=== PATIENT | male | born 1960 | race American Indian/Alaskan Native ===

== ENCOUNTER 2021-09-07 10:21 | Inpatient (IN) | payer BC ==
[2021-09-07] MEDS ORDERED: SODIUM CHLORIDE 0.9% 1000 ML 1,000 ML IV ONE (12:32)
--- NOTE | 2021-09-07 12:32 | Emergency Department Report ---
ED General Adult HPI - General Chief complaint: Hypoglycemia Stated complaint: HYPOGLYCEMIA/HYPOTENSION Time Seen by Provider: 09/07/21 11:34 Source: patient, family, EMS Mode of arrival: Stretcher Limitations: No Limitations, Physical Limitation - History of Present Illness Initial comments: 60-year-old male with history of diabetes presents to the emergency department complaining of hypoglycemia noticed by family this morning. Patient denies any complaints, currently, however is a poor historian. Patient's daughter reports that the patient had a blood sugar of 55 at home, EMS gave the patient D50, and the blood sugar came up to 122. Patient denies any complaints, but does report that he has not been eating, well. Patient's family thinks that the sacral decubitus that is getting worse is the cause of his hypoglycemia. Severity scale (0 -10): 0 - Related Data Home Medications Medication Instructions Recorded Confirmed Last Taken Atorvastatin [Lipitor] 40 mg PO QHS 09/08/21 09/08/21 1 Day Ago ~09/07/21 Folic Acid [Folvite] 1 mg PO QDAY 09/08/21 09/08/21 1 Day Ago ~09/07/21 Insulin NPH Hum/Reg Insulin Hm 15 unit SQ BID 09/08/21 09/08/21 1 Day Ago [Novolin 70-30 Flexpen] ~09/07/21 Previous Rx's Medication Instructions Recorded Last Taken Type Metoprolol [Lopressor TAB] 12.5 mg PO BID #60 tablet 09/19/21 Unknown Rx Midodrine [Proamatine] 10 mg PO 0800,1800 #90 tablet 09/19/21 Unknown Rx Allergies Allergy/AdvReac Type Severity Reaction Status Date / Time No Known Allergies Allergy Verified 09/07/21 14:52 ED Review of Systems ROS: Stated complaint: HYPOGLYCEMIA/HYPOTENSION Other details as noted in HPI Comment: Unobtainable due to pts medical conditions (History obtained from daughter and patient) Constitutional: denies: chills, fever Eyes: denies: eye pain, eye discharge, vision change ENT: denies: ear pain, throat pain Respiratory: denies: cough, shortness of breath, wheezing Cardiovascular: denies: chest pain, palpitations Endocrine: no symptoms reported Gastrointestinal: denies: abdominal pain, nausea, diarrhea Genitourinary: denies: urgency, dysuria Musculoskeletal: denies: back pain, joint swelling, arthralgia Skin: denies: rash, lesions Neurological: denies: headache, weakness, paresthesias Psychiatric: denies: anxiety, depression Hematological/Lymphatic: denies: easy bleeding, easy bruising ED Past Medical Hx - Past Medical History Hx Diabetes: Yes - Medications Home Medications: Home Medications Medication Instructions Recorded Confirmed Last Taken Type Atorvastatin [Lipitor] 40 mg PO QHS 09/08/21 09/08/21 1 Day Ago History ~09/07/21 Folic Acid [Folvite] 1 mg PO QDAY 09/08/21 09/08/21 1 Day Ago History ~09/07/21 Insulin NPH Hum/Reg Insulin Hm 15 unit SQ BID 09/08/21 09/08/21 1 Day Ago History [Novolin 70-30 Flexpen] ~09/07/21 Metoprolol [Lopressor TAB] 12.5 mg PO BID #60 tablet 09/19/21 Unknown Rx Midodrine [Proamatine] 10 mg PO 0800,1800 #90 tablet 09/19/21 Unknown Rx ED Physical Exam - General Limitations: No Limitations General appearance: alert, in no apparent distress - Head Head exam: Present: atraumatic, normocephalic - Eye Eye exam: Present: normal appearance - ENT ENT exam: Present: mucous membranes moist - Neck Neck exam: Present: normal inspection - Respiratory Respiratory exam: Present: normal lung sounds bilaterally. Absent: respiratory distress - Cardiovascular Cardiovascular Exam: Present: regular rate, normal rhythm. Absent: systolic murmur, diastolic murmur, rubs, gallop - GI/Abdominal GI/Abdominal exam: Present: soft, normal bowel sounds - Rectal Rectal exam: Present: deferred - Extremities Exam Extremities exam: Present: normal inspection - Back Exam Back exam: Present: normal inspection - Neurological Exam Neurological exam: Present: alert, altered - Psychiatric Psychiatric exam: Present: normal affect, normal mood - Skin Skin exam: Present: warm, dry, intact, normal color, other (sacral decubitus ulcer). Absent: rash ED Course Vital Signs 09/07/21 09/07/21 09/08/21 10:23 11:36 03:30 Temperature 97.4 F L 98.6 F Pulse Rate 84 87 Respiratory 18 20 Rate Blood Pressure Blood Pressure 85/55 118/70 [Left] O2 Sat by Pulse 96 98 98 Oximetry 09/08/21 04:33 Temperature 97.2 F L Pulse Rate 86 Respiratory 20 Rate Blood Pressure 107/65 Blood Pressure [Left] O2 Sat by Pulse 83 L Oximetry ED Medical Decision Making - Lab Data Result diagrams: 09/17/21 07:11 09/17/21 07:11 - Differential Diagnosis Infection, medication noncompliance or overuse, NV Critical care attestation.: If time is entered above; I have spent that time in minutes in the direct care of this critically ill patient, excluding procedure time. ED Disposition Clinical Impression: Sacral decubitus ulcer, stage IV, Hypoglycemia, Hyponatremia Disposition: ADMITTED INPATIENT Is pt being admited?: Yes Does the pt Need Aspirin: No Condition: Stable
--- NOTE | 2021-09-07 13:49 | XRay Report ---
CHEST 1 VIEW 09/07/2021 12:19 PM INDICATION / CLINICAL INFORMATION: Lightheadedness/Dizziness. COMPARISON: None available. FINDINGS: SUPPORT DEVICES: None. HEART / MEDIASTINUM: No significant abnormality. LUNGS / PLEURA: Increased opacity seen in left lower lung retrocardiac region No pneumothorax. ADDITIONAL FINDINGS: No significant additional findings. IMPRESSION: 1. Left lower lung opacity/infiltrate. Signer Name: Will Cruz MD Signed: 09/07/2021 1:44 PM Workstation Name: [id number]
[2021-09-07 14:35] LABS: Hematocrit 29.3 % (35.5-45.6); Hemoglobin 10.2 gm/dl (11.8-15.2); Mean Corpuscular HGB Conc 35 % (32-34); Mean Corpuscular Volume 86 fl (84-94); Platelet Count 704 K/mm3 (140-440); Red Cell Distribution Width 13.9 % (13.2-15.2)
[2021-09-07 14:42] LABS: Alanine Aminotransferase 12 units/L (7-56); Blood Urea Nitrogen 22 mg/dL (9-20); Calcium 8.9 mg/dL (8.4-10.2); Hemolysis Index 5
[2021-09-07 14:45] LABS: BUN/Creatinine Ratio 31
[2021-09-07 15:23] LABS: Basophils % (Manual) 0 % (0.0-1.8); Eosinophils % (Manual) 0 % (0.0-4.3); Total Cells Counted 100
[2021-09-07 15:26] LABS: Anisocytosis Few; Hypochromasia Few; Large Platelets Rare; Platelet Estimate Consistent w Auto
[2021-09-07] MEDS ORDERED: VANCOMYCIN/NS 1 GM/250 ML 1 GM/250 ML BAG IV ONE (16:11)
[2021-09-07] MEDS ORDERED: METOCLOPRAMIDE 10 MG/2 ML INJ IV PRN (22:04)
[2021-09-07] MEDS ORDERED: MORPHINE 2 MG/1 ML INJ IV PRN (22:04)
[2021-09-07] MEDS ORDERED: ONDANSETRON 4 MG/2 ML INJ IV PRN (22:04)
[2021-09-07] MEDS ORDERED: ACETAMINOPHEN 325 MG TAB PO PRN (22:04)
[2021-09-07] MEDS ORDERED: VANCOMYCIN PHARMACY TO DOSE IV SCH (23:00)
[2021-09-08] MEDS ORDERED: VANCOMYCIN 1,250 MG in SODIUM CHLORIDE 0.9% 250ML 250 ML IV ONE (01:45)
[2021-09-08] MEDS: D5W/0.9% NACL 1,000 ML IV SCH ×2 (04:32→17:15)
[2021-09-08] MEDS: AMPICILLIN/SULBACTA 3GM/100ML 3 GM/100 ML BAG IV SCH ×4 (04:32→17:12)
[2021-09-08 05:19] LABS: Hematocrit 26.4 % (35.5-45.6); Hemoglobin 8.6 gm/dl (11.8-15.2); Mean Corpuscular HGB Conc 33 % (32-34); Mean Corpuscular Volume 87 fl (84-94); Platelet Count 673 K/mm3 (140-440); Red Blood Count 3.05 M/mm3 (3.65-5.03); Red Cell Distribution Width 13.9 % (13.2-15.2)
[2021-09-08 05:43] LABS: Alanine Aminotransferase 10 units/L (7-56); Albumin 2.2 g/dL (3.9-5); Blood Urea Nitrogen 16 mg/dL (9-20); Calcium 8.7 mg/dL (8.4-10.2); Hemolysis Index 2
[2021-09-08 05:57] LABS: BUN/Creatinine Ratio 27
[2021-09-08] MEDS ORDERED: DEXTROSE 50% IN WATER (25GM) 50 ML SYRINGE IV ONE (06:42)
[2021-09-08 06:43] LABS: Band Neutrophils # (Manual) 0.2 K/mm3; Basophils % (Manual) 0 % (0.0-1.8); Eosinophils % (Manual) 0 % (0.0-4.3); Platelet Estimate Consistent w Auto; RBC Morphology Normal; Total Cells Counted 100
--- NOTE | 2021-09-08 07:17 | History and Physical Report ---
History of Present Illness Date of examination: 09/07/21 Date of admission: 09/07/21 22:04 Chief complaint: Persistent low blood glucose levels History of present illness: 60-year-old male with history of diabetes presents to the emergency department complaining of hypoglycemia noticed by family this morning. Patient denies any complaints, currently, however is a poor historian. Patient's daughter reports that the patient had a blood sugar of 55 at home, EMS gave the patient D50, and the blood sugar came up to 122. Patient denies any complaints, but does report that he has not been eating, well. Patient's family thinks that the sacral decubitus that is getting worse is the cause of his hypoglycemia. Review of Systems ROS: Stated complaint: HYPOGLYCEMIA/HYPOTENSION Other details as noted in HPI Comment: Unobtainable due to pts medical conditions (History obtained from daughter and patient) Constitutional: denies: chills, fever Eyes: denies: eye pain, eye discharge, vision change ENT: denies: ear pain, throat pain Respiratory: denies: cough, shortness of breath, wheezing Cardiovascular: denies: chest pain, palpitations Endocrine: no symptoms reported Gastrointestinal: denies: abdominal pain, nausea, diarrhea Genitourinary: denies: urgency, dysuria Musculoskeletal: denies: back pain, joint swelling, arthralgia Skin: denies: rash, lesions Neurological: denies: headache, weakness, paresthesias Psychiatric: denies: anxiety, depression Hematological/Lymphatic: denies: easy bleeding, easy bruising Past History Past Medical History: diabetes, other (Sacral decubitus ulcer) Past Surgical History: Other (Stage IV decubitus ulcer) Social history: lives with family, full code Medications and Allergies Allergies Allergy/AdvReac Type Severity Reaction Status Date / Time No Known Allergies Allergy Verified 09/07/21 14:52 Active Meds: Active Medications Acetaminophen (Acetaminophen 325 Mg Tab) 650 mg PO Q4H PRN PRN Reason: Pain MILD(1-3)/Fever >100.5/HORNER Heparin Sodium (Porcine) (Heparin 5,000 Unit/1 Ml Vial) 5,000 unit SUB-Q Q12HR [facility] Dextrose/Sodium Chloride (D5ns) 1,000 mls @ 100 mls/hr IV DIRECT URSULA Last Admin: 09/08/21 04:32 Dose: 100 mls/hr Ampicillin Sodium/Sulbactam Sodium (Unasyn/Ns 3 Gm/100 Ml) 3 gm in 100 mls @ 100 mls/hr IV Q6HR [facility]; Protocol Last Admin: 09/08/21 06:10 Dose: Not Given Vancomycin HCl (Vancomycin/Ns 1 Gm/250 Ml) 1 gm in 250 mls @ 250 mls/hr IV Q12H [facility] Insulin Human Lispro (Insulin Lispro 100 Unit/Ml) 0 unit SUB-Q ACHS [facility]; Protocol Metoclopramide HCl (Metoclopramide 10 Mg/2 Ml Inj) 10 mg IV Q6H PRN PRN Reason: Nausea And Vomiting Morphine Sulfate (Morphine 2 Mg/1 Ml Inj) 2 mg IV Q4H PRN PRN Reason: Pain, Moderate (4-6) Ondansetron HCl (Ondansetron 4 Mg/2 Ml Inj) 4 mg IV Q8H PRN PRN Reason: Nausea And Vomiting Sodium Chloride (Sodium Chloride 0.9% 10 Ml Flush Syringe) 10 ml IV BID [facility] Last Admin: 09/08/21 04:33 Dose: 10 ml Sodium Chloride (Sodium Chloride 0.9% 10 Ml Flush Syringe) 10 ml IV PRN PRN PRN Reason: LINE FLUSH Exam - Constitutional Vitals: Temp Pulse Resp BP Pulse Ox 97.2 F L 86 20 107/65 98 09/08/21 04:33 09/08/21 04:33 09/08/21 04:33 09/08/21 04:33 09/08/21 04:58 General appearance: Present: no acute distress, well-nourished - EENT Eyes: Present: PERRL ENT: hearing intact, clear oral mucosa - Neck Neck: Present: supple, normal ROM - Respiratory Respiratory effort: normal Respiratory: bilateral: CTA - Cardiovascular Heart rate: 78 Rhythm: regular Heart Sounds: Present: S1 & S2. Absent: rub, click - Extremities Extremities: pulses symmetrical, No edema, abnormal (Stage IV decubitus ulcer) Extremity abnormal: other (Stage IV decubitus ulcer) Peripheral Pulses: within normal limits - Abdominal General gastrointestinal: Present: soft, non-tender, non-distended, normal bowel sounds Male genitourinary: Present: normal - Integumentary Integumentary: Present: clear, warm, dry - Musculoskeletal Musculoskeletal: gait normal, strength equal bilaterally - Psychiatric Psychiatric: appropriate mood/affect, intact judgment & insight - Neurologic Neurologic: CNII-XII intact, moves all extremities - Allied Health Allied health notes reviewed: nursing, case management HEART Score - HEART Score Troponin: Troponin T 0.013 ng/mL (0.00-0.029) 09/07/21 13:13 Results - Labs CBC & Chem 7: 09/08/21 04:58 09/08/21 04:58 Labs: Laboratory Last Values WBC 16.2 K/mm3 (4.5-11.0) H 09/08/21 04:58 RBC 3.05 M/mm3 (3.65-5.03) L 09/08/21 04:58 Hgb 8.6 gm/dl (11.8-15.2) L 09/08/21 04:58 Hct 26.4 % (35.5-45.6) L 09/08/21 04:58 MCV 87 fl (84-94) 09/08/21 04:58 MCH 28 pg (28-32) 09/08/21 04:58 MCHC 33 % (32-34) 09/08/21 04:58 RDW 13.9 % (13.2-15.2) 09/08/21 04:58 Plt Count 673 K/mm3 (140-440) H 09/08/21 04:58 Add Manual Diff Complete 09/08/21 04:58 Total Counted 100 09/08/21 04:58 Seg Neutrophils % Manufacturing Test Engineer 09/08/21 04:58 Seg Neuts % (Manual) 95.0 % (40.0-70.0) H 09/08/21 04:58 Band Neutrophils % 1.0 % 09/08/21 04:58 Lymphocytes % (Manual) 3.0 % (13.4-35.0) L 09/08/21 04:58 Reactive Lymphs % (Man) 0 % 09/08/21 04:58 Monocytes % (Manual) 1.0 % (0.0-7.3) 09/08/21 04:58 Eosinophils % (Manual) 0 % (0.0-4.3) 09/08/21 04:58 Basophils % (Manual) 0 % (0.0-1.8) 09/08/21 04:58 Metamyelocytes % 0 % 09/08/21 04:58 Myelocytes % 0 % 09/08/21 04:58 Promyelocytes % 0 % 09/08/21 04:58 Blast Cells % 0 % 09/08/21 04:58 Nucleated RBC % Not Reportable 09/08/21 04:58 Seg Neutrophils # Man 15.4 K/mm3 (1.8-7.7) H 09/08/21 04:58 Band Neutrophils # 0.2 K/mm3 09/08/21 04:58 Lymphocytes # (Manual) 0.5 K/mm3 (1.2-5.4) L 09/08/21 04:58 Abs React Lymphs (Man) 0.0 K/mm3 09/08/21 04:58 Monocytes # (Manual) 0.2 K/mm3 (0.0-0.8) 09/08/21 04:58 Eosinophils # (Manual) 0.0 K/mm3 (0.0-0.4) 09/08/21 04:58 Basophils # (Manual) 0.0 K/mm3 (0.0-0.1) 09/08/21 04:58 Metamyelocytes # 0.0 K/mm3 09/08/21 04:58 Myelocytes # 0.0 K/mm3 09/08/21 04:58 Promyelocytes # 0.0 K/mm3 09/08/21 04:58 Blast Cells # 0.0 K/mm3 09/08/21 04:58 WBC Morphology Not Reportable 09/08/21 04:58 Hypersegmented Neuts Not Reportable 09/08/21 04:58 Hyposegmented Neuts Not Reportable 09/08/21 04:58 Hypogranular Neuts Not Reportable 09/08/21 04:58 Smudge Cells Not Reportable 09/08/21 04:58 Toxic Granulation Not Reportable 09/08/21 04:58 Toxic Vacuolation Not Reportable 09/08/21 04:58 Dohle Bodies Not Reportable 09/08/21 04:58 Pelger-Huet Anomaly Not Reportable 09/08/21 04:58 Robert Rods Not Reportable 09/08/21 04:58 Platelet Estimate Consistent w auto 09/08/21 04:58 Clumped Platelets Not Reportable 09/08/21 04:58 Plt Clumps, EDTA Not Reportable 09/08/21 04:58 Large Platelets Not Reportable 09/08/21 04:58 Giant Platelets Not Reportable 09/08/21 04:58 Platelet Satelliting Not Reportable 09/08/21 04:58 Plt Morphology Comment Not Reportable 09/08/21 04:58 RBC Morphology Normal 09/08/21 04:58 Dimorphic RBCs Not Reportable 09/08/21 04:58 Polychromasia Not Reportable 09/08/21 04:58 Hypochromasia Not Reportable 09/08/21 04:58 Poikilocytosis Not Reportable 09/08/21 04:58 Anisocytosis Not Reportable 09/08/21 04:58 Microcytosis Not Reportable 09/08/21 04:58 Macrocytosis Not Reportable 09/08/21 04:58 Spherocytes Not Reportable 09/08/21 04:58 Pappenheimer Bodies Not Reportable 09/08/21 04:58 Sickle Cells Not Reportable 09/08/21 04:58 Target Cells Not Reportable 09/08/21 04:58 Tear Drop Cells Not Reportable 09/08/21 04:58 Ovalocytes Not Reportable 09/08/21 04:58 Helmet Cells Not Reportable 09/08/21 04:58 [place] Bodies Not Reportable 09/08/21 04:58 [place] Rings Not Reportable 09/08/21 04:58 Humphrey Cells Not Reportable 09/08/21 04:58 Bite Cells Not Reportable 09/08/21 04:58 Crenated Cell Not Reportable 09/08/21 04:58 Elliptocytes Not Reportable 09/08/21 04:58 Acanthocytes (Spur) Not Reportable 09/08/21 04:58 Rouleaux Not Reportable 09/08/21 04:58 Hemoglobin C Crystals Not Reportable 09/08/21 04:58 Schistocytes Not Reportable 09/08/21 04:58 Malaria parasites Not Reportable 09/08/21 04:58 Ludwig Bodies Not Reportable 09/08/21 04:58 Hem Pathologist Commnt No 09/08/21 04:58 Sodium 132 mmol/L (137-145) L 09/08/21 04:58 Potassium 3.8 mmol/L (3.6-5.0) 09/08/21 04:58 Chloride 90.7 mmol/L (98-107) L 09/08/21 04:58 Carbon Dioxide 30 mmol/L (22-30) 09/08/21 04:58 Anion Gap 15 mmol/L 09/08/21 04:58 BUN 16 mg/dL (9-20) 09/08/21 04:58 Creatinine 0.6 mg/dL (0.8-1.3) L 09/08/21 04:58 Estimated GFR > 60 ml/min 09/08/21 04:58 BUN/Creatinine Ratio 27 % 09/08/21 04:58 Glucose 21 mg/dL (75-100) L* 09/08/21 04:58 POC Glucose 24 mg/dL (70-105) L 09/08/21 06:04 Lactic Acid 1.40 mmol/L (0.7-2.0) 09/07/21 15:23 Calcium 8.7 mg/dL (8.4-10.2) 09/08/21 04:58 Total Bilirubin 0.20 mg/dL (0.1-1.2) 09/08/21 04:58 AST 27 units/L (5-40) 09/08/21 04:58 ALT 10 units/L (7-56) 09/08/21 04:58 Alkaline Phosphatase 131 units/L (35-129) H 09/08/21 04:58 Troponin T 0.013 ng/mL (0.00-0.029) 09/07/21 13:13 Total Protein 7.5 g/dL (6.3-8.2) 09/08/21 04:58 Albumin 2.2 g/dL (3.9-5) L 09/08/21 04:58 Albumin/Globulin Ratio 0.4 % 09/08/21 04:58 Blood Type A POSITIVE 09/07/21 13:55 Antibody Screen Negative 09/07/21 13:55 Microbiology: Microbiology 09/07/21 13:13 Peripheral/Venous Blood Culture - Preliminary Culture in Progress 09/07/21 13:13 Peripheral/Venous Blood Culture - Preliminary Culture in Progress [place]/IV: Voiding Method Condom Catheter Assessment and Plan Advance Directives: Yes (Full code) VTE prophylaxis?: Chemical Plan of care discussed with patient/family: Yes - Patient Problems (1) Hypoglycemia Current Visit: Yes Status: Acute Plan to address problem: Persistent hypoglycemia IV D5W with normal saline D50 W and glucagon as necessary Etiology of hypoglycemia unclear Poor p.o. intake (2) Hyponatremia Current Visit: Yes Status: Acute Plan to address problem: Normal saline for now (3) Sacral decubitus ulcer, stage IV Current Visit: Yes Status: Chronic Plan to address problem: Severe sacral decubitus ulcer about 12 cm [place] VIII centimeters X depth of about 2 cm with eschar formation over half of the decubitus ulcer Needs debridement and wound care. Surgical consult requested. Patient needs placement for continues wound therapy. (4) Anemia Current Visit: Yes Status: Chronic Qualifiers: Anemia type: unspecified type Qualified Code(s): D64.9 - Anemia, unspecified Plan to address problem: Anemia work-up (5) Malnutrition Current Visit: Yes Status: Chronic Qualifiers: Malnutrition type: protein-calorie malnutrition Plan to address problem: Malnutrition severe Albumin is two-point Dietitian consult requested Dietary supplements requested 3 times a day (6) DVT prophylaxis Current Visit: Yes Status: Acute Plan to address problem: On heparin and GI prophylaxis (7) Advance care planning Current Visit: Yes Status: Acute Plan to address problem: Could not be done because of logistics
--- NOTE | 2021-09-08 07:47 | Progress Note ---
Assessment and Plan Assessment and plan: -- Hypoglycemia Persistent hypoglycemia IV D5W with normal saline Probably due to poor oral intake D50 W and glucagon as necessary Etiology of hypoglycemia unclear Poor p.o. intake --Hyponatremia Mild improvement Na improved from 128-132 this morning Continue normal saline closely monitor electrolytes -- Sacral decubitus ulcer, stage IV Severe sacral decubitus ulcer about 12 cm Elrama VIII centimeters X depth of about 2 cm with eschar formation over half of the decubitus ulcer Needs surgical debridement and wound care. Surgical consult already requested. Patient needs placement for continues wound therapy. --Anemia[dropped from 10.2-8.6 since admission] Closely monitor H&H, transfuse as needed No external evidence of bleeding, stool for occult blood Closely monitor -- Severe protein calorie malnutrition With hypoalbuminemia, nutrition supplements Nutrition consult and supportive care --Severe hyper anemia; albumin2.2 nutrition supplements, nutrition consult Supportive care -- DVT prophylaxis Subcu heparin and GI prophylaxis -- Advance care planning Could not be done because of logistics Plan of care reviewed with the patient and his nurse I also discussed extensively with surgeon Dr. Titus Is planning surgical debridement tomorrow if patient is stable N.p.o. from midnight History Interval history: I have seen and examined the patient in the morning Patient's chart and medications reviewed Admitted with hypoglycemia, blood sugars are reasonable level Patient complains of generalized weakness Vital signs noted Hospitalist Physical - Constitutional Vitals: Temp Pulse Resp BP Pulse Ox 97.2 F L 86 20 107/65 98 09/08/21 04:33 09/08/21 04:33 09/08/21 04:33 09/08/21 04:33 09/08/21 04:58 General appearance: Present: no acute distress, well-nourished - EENT Eyes: Present: PERRL, EOM intact - Neck Neck: Present: supple, normal ROM - Respiratory Respiratory effort: normal Respiratory: bilateral: diminished, negative: rales, rhonchi, wheezing - Cardiovascular Rhythm: regular Heart Sounds: Present: S1 & S2 - Extremities Extremities: no ischemia, No edema, abnormal (Stage IV sacral decubitus ulcer) - Abdominal General gastrointestinal: soft, non-tender, non-distended, normal bowel sounds - Integumentary Integumentary: Present: clear, warm, erythema (Stage IV sacral decubitus ulcer) - Psychiatric Psychiatric: cooperative - Neurologic Neurologic: moves all extremities HEART Score - HEART Score Troponin: Troponin T 0.013 ng/mL (0.00-0.029) 09/07/21 13:13 Results - Labs CBC & Chem 7: 09/08/21 04:58 09/08/21 04:58 Labs: Laboratory Last Values WBC 16.2 K/mm3 (4.5-11.0) H 09/08/21 04:58 RBC 3.05 M/mm3 (3.65-5.03) L 09/08/21 04:58 Hgb 8.6 gm/dl (11.8-15.2) L 09/08/21 04:58 Hct 26.4 % (35.5-45.6) L 09/08/21 04:58 MCV 87 fl (84-94) 09/08/21 04:58 MCH 28 pg (28-32) 09/08/21 04:58 MCHC 33 % (32-34) 09/08/21 04:58 RDW 13.9 % (13.2-15.2) 09/08/21 04:58 Plt Count 673 K/mm3 (140-440) H 09/08/21 04:58 Add Manual Diff Complete 09/08/21 04:58 Total Counted 100 09/08/21 04:58 Seg Neutrophils % [employer] Super[employer] 09/08/21 04:58 Seg Neuts % (Manual) 95.0 % (40.0-70.0) H 09/08/21 04:58 Band Neutrophils % 1.0 % 09/08/21 04:58 Lymphocytes % (Manual) 3.0 % (13.4-35.0) L 09/08/21 04:58 Reactive Lymphs % (Man) 0 % 09/08/21 04:58 Monocytes % (Manual) 1.0 % (0.0-7.3) 09/08/21 04:58 Eosinophils % (Manual) 0 % (0.0-4.3) 09/08/21 04:58 Basophils % (Manual) 0 % (0.0-1.8) 09/08/21 04:58 Metamyelocytes % 0 % 09/08/21 04:58 Myelocytes % 0 % 09/08/21 04:58 Promyelocytes % 0 % 09/08/21 04:58 Blast Cells % 0 % 09/08/21 04:58 Nucleated RBC % Not Reportable 09/08/21 04:58 Seg Neutrophils # Man 15.4 K/mm3 (1.8-7.7) H 09/08/21 04:58 Band Neutrophils # 0.2 K/mm3 09/08/21 04:58 Lymphocytes # (Manual) 0.5 K/mm3 (1.2-5.4) L 09/08/21 04:58 Abs React Lymphs (Man) 0.0 K/mm3 09/08/21 04:58 Monocytes # (Manual) 0.2 K/mm3 (0.0-0.8) 09/08/21 04:58 Eosinophils # (Manual) 0.0 K/mm3 (0.0-0.4) 09/08/21 04:58 Basophils # (Manual) 0.0 K/mm3 (0.0-0.1) 09/08/21 04:58 Metamyelocytes # 0.0 K/mm3 09/08/21 04:58 Myelocytes # 0.0 K/mm3 09/08/21 04:58 Promyelocytes # 0.0 K/mm3 09/08/21 04:58 Blast Cells # 0.0 K/mm3 09/08/21 04:58 WBC Morphology Not Reportable 09/08/21 04:58 Hypersegmented Neuts Not Reportable 09/08/21 04:58 Hyposegmented Neuts Not Reportable 09/08/21 04:58 Hypogranular Neuts Not Reportable 09/08/21 04:58 Smudge Cells Not Reportable 09/08/21 04:58 Toxic Granulation Not Reportable 09/08/21 04:58 Toxic Vacuolation Not Reportable 09/08/21 04:58 Dohle Bodies Not Reportable 09/08/21 04:58 Pelger-Huet Anomaly Not Reportable 09/08/21 04:58 Robert Rods Not Reportable 09/08/21 04:58 Platelet Estimate Consistent w auto 09/08/21 04:58 Clumped Platelets Not Reportable 09/08/21 04:58 Plt Clumps, EDTA Not Reportable 09/08/21 04:58 Large Platelets Not Reportable 09/08/21 04:58 Giant Platelets Not Reportable 09/08/21 04:58 Platelet Satelliting Not Reportable 09/08/21 04:58 Plt Morphology Comment Not Reportable 09/08/21 04:58 RBC Morphology Normal 09/08/21 04:58 Dimorphic RBCs Not Reportable 09/08/21 04:58 Polychromasia Not Reportable 09/08/21 04:58 Hypochromasia Not Reportable 09/08/21 04:58 Poikilocytosis Not Reportable 09/08/21 04:58 Anisocytosis Not Reportable 09/08/21 04:58 Microcytosis Not Reportable 09/08/21 04:58 Macrocytosis Not Reportable 09/08/21 04:58 Spherocytes Not Reportable 09/08/21 04:58 Pappenheimer Bodies Not Reportable 09/08/21 04:58 Sickle Cells Not Reportable 09/08/21 04:58 Target Cells Not Reportable 09/08/21 04:58 Tear Drop Cells Not Reportable 09/08/21 04:58 Ovalocytes Not Reportable 09/08/21 04:58 Helmet Cells Not Reportable 09/08/21 04:58 [place] Bodies Not Reportable 09/08/21 04:58 [employer] Rings Not Reportable 09/08/21 04:58 Korbel Cells Not Reportable 09/08/21 04:58 Bite Cells Not Reportable 09/08/21 04:58 Crenated Cell Not Reportable 09/08/21 04:58 Elliptocytes Not Reportable 09/08/21 04:58 Acanthocytes (Spur) Not Reportable 09/08/21 04:58 Rouleaux Not Reportable 09/08/21 04:58 Hemoglobin C Crystals Not Reportable 09/08/21 04:58 Schistocytes Not Reportable 09/08/21 04:58 Malaria parasites Not Reportable 09/08/21 04:58 Ludwig Bodies Not Reportable 09/08/21 04:58 Hem Pathologist Commnt No 09/08/21 04:58 Sodium 132 mmol/L (137-145) L 09/08/21 04:58 Potassium 3.8 mmol/L (3.6-5.0) 09/08/21 04:58 Chloride 90.7 mmol/L (98-107) L 09/08/21 04:58 Carbon Dioxide 30 mmol/L (22-30) 09/08/21 04:58 Anion Gap 15 mmol/L 09/08/21 04:58 BUN 16 mg/dL (9-20) 09/08/21 04:58 Creatinine 0.6 mg/dL (0.8-1.3) L 09/08/21 04:58 Estimated GFR > 60 ml/min 09/08/21 04:58 BUN/Creatinine Ratio 27 % 09/08/21 04:58 Glucose 21 mg/dL (75-100) L* 09/08/21 04:58 POC Glucose 94 mg/dL (70-105) 09/08/21 07:31 Lactic Acid 1.40 mmol/L (0.7-2.0) 09/07/21 15:23 Calcium 8.7 mg/dL (8.4-10.2) 09/08/21 04:58 Total Bilirubin 0.20 mg/dL (0.1-1.2) 09/08/21 04:58 AST 27 units/L (5-40) 09/08/21 04:58 ALT 10 units/L (7-56) 09/08/21 04:58 Alkaline Phosphatase 131 units/L (35-129) H 09/08/21 04:58 Troponin T 0.013 ng/mL (0.00-0.029) 09/07/21 13:13 Total Protein 7.5 g/dL (6.3-8.2) 09/08/21 04:58 Albumin 2.2 g/dL (3.9-5) L 09/08/21 04:58 Albumin/Globulin Ratio 0.4 % 09/08/21 04:58 Blood Type A POSITIVE 09/07/21 13:55 Antibody Screen Negative 09/07/21 13:55 Microbiology: Microbiology 09/07/21 13:13 Peripheral/Venous Blood Culture - Preliminary Culture in Progress 09/07/21 13:13 Peripheral/Venous Blood Culture - Preliminary Culture in Progress Neville/IV: Voiding Method Condom Catheter Active Medications - Current Medications Current Medications: Generic Name Dose Route Start Last Admin Trade Name Freq PRN Reason Stop Dose Admin Acetaminophen 650 mg 09/07/21 22:04 Acetaminophen 325 Mg Tab PO Q4H PRN Pain MILD(1-3)/Fever >100.5/HORNER Heparin Sodium (Porcine) 5,000 unit 09/08/21 10:00 Heparin 5,000 Unit/1 Ml Vial SUB-Q Q12HR [facility] Dextrose/Sodium Chloride 1,000 mls @ 100 mls/hr 09/07/21 23:00 09/08/21 04:32 D5ns IV 100 mls/hr DIRECT URSULA Administration Ampicillin Sodium/Sulbactam Sodium 3 gm in 100 mls @ 100 mls/hr 09/08/21 00:00 09/08/21 06:10 Unasyn/Ns 3 Gm/100 Ml IV Not Given Q6HR [facility] Protocol Vancomycin HCl 1 gm in 250 mls @ 250 mls/hr 09/08/21 14:00 Vancomycin/Ns 1 Gm/250 Ml IV Q12H [facility] Insulin Human Lispro 0 unit 09/08/21 07:30 Insulin Lispro 100 Unit/Ml SUB-Q ACHS [facility] Protocol Metoclopramide HCl 10 mg 09/07/21 22:04 Metoclopramide 10 Mg/2 Ml Inj IV Q6H PRN Nausea And Vomiting Morphine Sulfate 2 mg 09/07/21 22:04 Morphine 2 Mg/1 Ml Inj IV Q4H PRN Pain, Moderate (4-6) Ondansetron HCl 4 mg 09/07/21 22:04 Ondansetron 4 Mg/2 Ml Inj IV Q8H PRN Nausea And Vomiting Sodium Chloride 10 ml 09/07/21 23:00 09/08/21 04:33 Sodium Chloride 0.9% 10 Ml Flush Syringe IV 10 ml BID URSULA Administration Sodium Chloride 10 ml 09/07/21 22:04 Sodium Chloride 0.9% 10 Ml Flush Syringe IV PRN PRN LINE FLUSH
[2021-09-08] MEDS: INSULIN LISPRO 100 UNIT/ML SUB-Q SCH ×4 (08:01→22:49)
[2021-09-08] MEDS: HEPARIN 5,000 UNIT/1 ML VIAL SUB-Q SCH ×3 (08:27→22:49)
--- NOTE | 2021-09-08 09:51 | Consultation ---
History of Present Illness Consult date: 09/08/21 - History of present illness History of present illness: 60-year-old male with history of diabetes presents to the emergency department complaining of hypoglycemia noticed by family this morning. Patient denies any complaints, currently, however is a poor historian. Patient's daughter reports that the patient had a blood sugar of 55 at home, EMS gave the patient D50, and the blood sugar came up to 122. Patient denies any complaints, but does report that he has not been eating, well. Patient's family thinks that the sacral decubitus that is getting worse is the cause of his hypoglycemia. Surgical consultation is for management of decubitus ulcer requiring debridement at this time. WBC count is 16,200 patient noted to have a glucose of 21 this morning. Surgical debridement should be deferred until aggressive medical management of fairly dangerous hypoglycemia. Patient notably also hypotensive this morning aggressive IV fluid treatment with antibiotics. Considering elevated white count the IV vancomycin may not be broad enough to cover all potential causes of sepsis. Consider CT of the abdomen for occult intra-abdominal abscess source as well. Past History Past Medical History: diabetes, other (Sacral decubitus ulcer) Past Surgical History: Other (Stage IV decubitus ulcer) Social history: lives with family, full code Medications and Allergies Allergies Allergy/AdvReac Type Severity Reaction Status Date / Time No Known Allergies Allergy Verified 09/07/21 14:52 Home Medications Medication Instructions Recorded Confirmed Last Taken Type Atorvastatin [Lipitor Tab] 40 mg PO QHS 09/08/21 09/08/21 1 Day Ago History ~09/07/21 Folic Acid [Folvite] 1 mg PO QDAY 09/08/21 09/08/21 1 Day Ago History ~09/07/21 Insulin NPH Hum/Reg Insulin Hm 15 unit SQ BID 09/08/21 09/08/21 1 Day Ago History [Novolin 70-30 Flexpen] ~09/07/21 Metoprolol [Lopressor] 25 mg PO BID 09/08/21 09/08/21 1 Day Ago History ~09/07/21 Active Meds: Active Medications Acetaminophen (Acetaminophen 325 Mg Tab) 650 mg PO Q4H PRN PRN Reason: Pain MILD(1-3)/Fever >100.5/HORNER Heparin Sodium (Porcine) (Heparin 5,000 Unit/1 Ml Vial) 5,000 unit SUB-Q Q12HR [facility] Last Admin: 09/08/21 08:27 Dose: 5,000 unit Dextrose/Sodium Chloride (D5ns) 1,000 mls @ 100 mls/hr IV DIRECT URSULA Last Admin: 09/08/21 04:32 Dose: 100 mls/hr Ampicillin Sodium/Sulbactam Sodium (Unasyn/Ns 3 Gm/100 Ml) 3 gm in 100 mls @ 100 mls/hr IV Q6HR [facility]; Protocol Last Admin: 09/08/21 06:10 Dose: Not Given Vancomycin HCl (Vancomycin/Ns 1 Gm/250 Ml) 1 gm in 250 mls @ 250 mls/hr IV Q12H URSULA Insulin Human Lispro (Insulin Lispro 100 Unit/Ml) 0 unit SUB-Q ACHS [facility]; Protocol Last Admin: 09/08/21 08:01 Dose: Not Given Metoclopramide HCl (Metoclopramide 10 Mg/2 Ml Inj) 10 mg IV Q6H PRN PRN Reason: Nausea And Vomiting Morphine Sulfate (Morphine 2 Mg/1 Ml Inj) 2 mg IV Q4H PRN PRN Reason: Pain, Moderate (4-6) Ondansetron HCl (Ondansetron 4 Mg/2 Ml Inj) 4 mg IV Q8H PRN PRN Reason: Nausea And Vomiting Sodium Chloride (Sodium Chloride 0.9% 10 Ml Flush Syringe) 10 ml IV BID [facility] Last Admin: 09/08/21 08:29 Dose: 10 ml Sodium Chloride (Sodium Chloride 0.9% 10 Ml Flush Syringe) 10 ml IV PRN PRN PRN Reason: LINE FLUSH Exam Vital Signs Temp Pulse Resp BP Pulse Ox 97.4 F L 84 18 85/55 96 09/07/21 10:23 09/07/21 10:23 09/07/21 10:23 09/07/21 10:23 09/07/21 10:23 Results - Labs 09/08/21 04:58 09/08/21 04:58 Abnormal lab results 09/07/21 09/07/21 09/07/21 Range/Units 13:13 13:13 13:13 WBC 15.7 H (4.5-11.0) K/mm3 RBC 3.40 L (3.65-5.03) M/mm3 Hgb 10.2 L (11.8-15.2) gm/dl Hct 29.3 L (35.5-45.6) % MCHC 35 H (32-34) % Plt Count 704 H (140-440) K/mm3 Seg Neuts % (Manual) 91.0 H (40.0-70.0) % Lymphocytes % (Manual) 5.0 L (13.4-35.0) % Seg Neutrophils # Man 14.3 H (1.8-7.7) K/mm3 Lymphocytes # (Manual) 0.8 L (1.2-5.4) K/mm3 Sodium 128 L (137-145) mmol/L Chloride 87.3 L (98-107) mmol/L BUN 22 H (9-20) mg/dL Creatinine 0.7 L (0.8-1.3) mg/dL Glucose 41 L (75-100) mg/dL POC Glucose (70-105) mg/dL Lactic Acid 2.10 H* (0.7-2.0) mmol/L Alkaline Phosphatase (35-129) units/L Albumin 2.0 L (3.9-5) g/dL 09/08/21 09/08/21 09/08/21 Range/Units 04:58 04:58 06:04 WBC 16.2 H (4.5-11.0) K/mm3 RBC 3.05 L (3.65-5.03) M/mm3 Hgb 8.6 L (11.8-15.2) gm/dl Hct 26.4 L (35.5-45.6) % MCHC (32-34) % Plt Count 673 H (140-440) K/mm3 Seg Neuts % (Manual) 95.0 H (40.0-70.0) % Lymphocytes % (Manual) 3.0 L (13.4-35.0) % Seg Neutrophils # Man 15.4 H (1.8-7.7) K/mm3 Lymphocytes # (Manual) 0.5 L (1.2-5.4) K/mm3 Sodium 132 L (137-145) mmol/L Chloride 90.7 L (98-107) mmol/L BUN (9-20) mg/dL Creatinine 0.6 L (0.8-1.3) mg/dL Glucose 21 L* (75-100) mg/dL POC Glucose 24 L (70-105) mg/dL Lactic Acid (0.7-2.0) mmol/L Alkaline Phosphatase 131 H (35-129) units/L Albumin 2.2 L (3.9-5) g/dL Diabetes panel 09/07/21 09/08/21 Range/Units 13:13 04:58 Sodium 128 L 132 L (137-145) mmol/L Potassium 3.6 3.8 (3.6-5.0) mmol/L Chloride 87.3 L 90.7 L (98-107) mmol/L Carbon Dioxide 29 30 (22-30) mmol/L BUN 22 H 16 (9-20) mg/dL Creatinine 0.7 L 0.6 L (0.8-1.3) mg/dL Glucose 41 L 21 L* (75-100) mg/dL Calcium 8.9 8.7 (8.4-10.2) mg/dL AST 30 27 (5-40) units/L ALT 12 10 (7-56) units/L Alkaline Phosphatase 121 131 H (35-129) units/L Total Protein 7.8 7.5 (6.3-8.2) g/dL Albumin 2.0 L 2.2 L (3.9-5) g/dL Calcium panel 09/07/21 09/08/21 Range/Units 13:13 04:58 Calcium 8.9 8.7 (8.4-10.2) mg/dL Albumin 2.0 L 2.2 L (3.9-5) g/dL Pituitary panel 09/07/21 09/08/21 Range/Units 13:13 04:58 Sodium 128 L 132 L (137-145) mmol/L Potassium 3.6 3.8 (3.6-5.0) mmol/L Chloride 87.3 L 90.7 L (98-107) mmol/L Carbon Dioxide 29 30 (22-30) mmol/L BUN 22 H 16 (9-20) mg/dL Creatinine 0.7 L 0.6 L (0.8-1.3) mg/dL Glucose 41 L 21 L* (75-100) mg/dL Calcium 8.9 8.7 (8.4-10.2) mg/dL Adrenal panel 09/07/21 09/08/21 Range/Units 13:13 04:58 Sodium 128 L 132 L (137-145) mmol/L Potassium 3.6 3.8 (3.6-5.0) mmol/L Chloride 87.3 L 90.7 L (98-107) mmol/L Carbon Dioxide 29 30 (22-30) mmol/L BUN 22 H 16 (9-20) mg/dL Creatinine 0.7 L 0.6 L (0.8-1.3) mg/dL Glucose 41 L 21 L* (75-100) mg/dL Calcium 8.9 8.7 (8.4-10.2) mg/dL Total Bilirubin 0.20 0.20 (0.1-1.2) mg/dL AST 30 27 (5-40) units/L ALT 12 10 (7-56) units/L Alkaline Phosphatase 121 131 H (35-129) units/L Total Protein 7.8 7.5 (6.3-8.2) g/dL Albumin 2.0 L 2.2 L (3.9-5) g/dL Assessment and Plan 60-year-old male with history of diabetes presents to the emergency department complaining of hypoglycemia noticed by family this morning. Patient denies any complaints, currently, however is a poor historian. Patient's daughter reports that the patient had a blood sugar of 55 at home, EMS gave the patient D50, and the blood sugar came up to 122. Patient denies any complaints, but does report that he has not been eating, well. Patient's family thinks that the sacral decubitus that is getting worse is the cause of his hypoglycemia. Surgical consultation is for management of decubitus ulcer requiring debridement at this time. WBC count is 16,200 patient noted to have a glucose of 21 this morning. Surgical debridement should be deferred until aggressive medical management of fairly dangerous hypoglycemia. Patient notably also hypotensive this morning aggressive IV fluid treatment with antibiotics. Considering elevated white count the IV vancomycin may not be broad enough to cover all potential causes of sepsis. Consider CT of the abdomen for occult intra-abdominal abscess source as well.
[2021-09-08 12:37] LABS: Bacteria,Urine 4+ /HPF (Negative); Hyaline Casts,Urine 3 /LPF
[2021-09-08 13:08] LABS: Color,Urine Yellow (Yellow)
[2021-09-08 13:10] LABS: Bilirubin,Urine Negative (Negative); Blood,Urine Negative (Negative); Protein,Urine <30 mg dL mg/dL (Negative); Urobilinogen,Urine < 2.0 mg/dL (<2.0)
--- NOTE | 2021-09-08 13:22 | XRay Report ---
RIGHT SHOULDER ONE VIEW INDICATION / CLINICAL INFORMATION: pain. COMPARISON: None available. FINDINGS: BONES / JOINT(S): No acute fracture or subluxation. Mild DJD at the glenohumeral and AC joint. SOFT TISSUES: No significant abnormality. ADDITIONAL FINDINGS: None. Signer Name: Earl Renae MD Signed: 09/08/2021 1:18 PM Workstation Name: [id number]
--- NOTE | 2021-09-08 13:23 | XRay Report ---
XR forearm 1V RT INDICATION: pain. COMPARISON: None available. FINDINGS: There is a reversible acute fracture or subluxation. There is mild DJD in the elbow joint. Signer Name: Flo Lombardo MD Signed: 09/08/2021 1:18 PM Workstation Name: [id number]
[2021-09-08] MEDS ORDERED: MAGNESIUM CITRATE 300 ML ORAL LIQD PO NR ×2 (15:00→17:00)
[2021-09-08] MEDS: VANCOMYCIN/NS 1 GM/250 ML 1 GM/250 ML BAG IV SCH (15:14)
[2021-09-08] MEDS: METOPROLOL TARTRATE 25 MG TAB PO SCH (22:49)
[2021-09-09] MEDS: VANCOMYCIN/NS 1 GM/250 ML 1 GM/250 ML BAG IV SCH ×2 (05:11→18:00)
[2021-09-09] MEDS: D5W/0.9% NACL 1,000 ML IV SCH ×2 (05:11→18:17)
[2021-09-09] MEDS ORDERED: SODIUM CHLORIDE 0.9% 1000 ML 1,000 ML IV ONE (05:42)
[2021-09-09] MEDS: AMPICILLIN/SULBACTA 3GM/100ML 3 GM/100 ML BAG IV SCH ×4 (06:00→19:00)
[2021-09-09] MEDS: INSULIN LISPRO 100 UNIT/ML SUB-Q SCH ×4 (07:30→22:11)
--- NOTE | 2021-09-09 08:27 | Progress Note ---
Assessment and Plan Assessment and plan: -- Hypoglycemia Persistent hypoglycemia IV D5W with normal saline Probably due to poor oral intake D50 W and glucagon as necessary Etiology of hypoglycemia unclear Poor p.o. intake --Hyponatremia Mild improvement Na improved from 128-132 this morning Continue normal saline closely monitor electrolytes -- Sacral decubitus ulcer, stage IV Severe sacral decubitus ulcer about 12 cm [place] VIII centimeters X depth of about 2 cm with eschar formation over half of the decubitus ulcer Needs surgical debridement and wound care. Surgical consult already requested. Patient needs placement for continues wound therapy. --Anemia[dropped from 10.2-8.6 since admission] Closely monitor H&H, transfuse as needed No external evidence of bleeding, stool for occult blood Closely monitor -- Severe protein calorie malnutrition With hypoalbuminemia, nutrition supplements Nutrition consult and supportive care --Severe hyper anemia; albumin2.2 nutrition supplements, nutrition consult Supportive care -- DVT prophylaxis Subcu heparin and GI prophylaxis -- Advance care planning Could not be done because of logistics Plan of care reviewed with the patient and his nurse 09/08;I also discussed extensively with surgeon Dr. Titus Is planning surgical debridement tomorrow if patient is stable N.p.o. from midnight 09/09; patient is n.p.o. status, scheduled for surgical debridement Surgeon requested echocardiogram, echo ordered We will also add PT, INR and PTT History Interval history: I have seen and examined the patient in the room this morning Patient's chart and medications reviewed Patient is n.p.o. status for surgical debridement and for diversion colostomy Patient has no new complaints Vital signs noted Hospitalist Physical - Constitutional Vitals: Temp Pulse Resp BP Pulse Ox 98.6 F 89 18 96/51 93 09/09/21 04:32 09/09/21 05:10 09/09/21 07:37 09/09/21 07:37 09/09/21 07:37 General appearance: Present: no acute distress, well-nourished - EENT Eyes: Present: PERRL, EOM intact - Neck Neck: Present: supple, normal ROM - Respiratory Respiratory effort: normal Respiratory: bilateral: diminished, negative: rales, rhonchi, wheezing - Cardiovascular Rhythm: regular Heart Sounds: Present: S1 & S2 - Extremities Extremities: no ischemia, No edema - Abdominal General gastrointestinal: soft, non-tender, non-distended, normal bowel sounds - Integumentary Integumentary: Present: clear, warm - Psychiatric Psychiatric: appropriate mood/affect, cooperative - Neurologic Neurologic: CNII-XII intact, moves all extremities HEART Score - HEART Score Troponin: Troponin T 0.013 ng/mL (0.00-0.029) 09/07/21 13:13 Results - Labs CBC & Chem 7: 09/08/21 04:58 09/08/21 04:58 Labs: Laboratory Last Values WBC 16.2 K/mm3 (4.5-11.0) H 09/08/21 04:58 RBC 3.05 M/mm3 (3.65-5.03) L 09/08/21 04:58 Hgb 8.6 gm/dl (11.8-15.2) L 09/08/21 04:58 Hct 26.4 % (35.5-45.6) L 09/08/21 04:58 MCV 87 fl (84-94) 09/08/21 04:58 MCH 28 pg (28-32) 09/08/21 04:58 MCHC 33 % (32-34) 09/08/21 04:58 RDW 13.9 % (13.2-15.2) 09/08/21 04:58 Plt Count 673 K/mm3 (140-440) H 09/08/21 04:58 Add Manual Diff Complete 09/08/21 04:58 Total Counted 100 09/08/21 04:58 Seg Neutrophils % Sash Finisher 09/08/21 04:58 Seg Neuts % (Manual) 95.0 % (40.0-70.0) H 09/08/21 04:58 Band Neutrophils % 1.0 % 09/08/21 04:58 Lymphocytes % (Manual) 3.0 % (13.4-35.0) L 09/08/21 04:58 Reactive Lymphs % (Man) 0 % 09/08/21 04:58 Monocytes % (Manual) 1.0 % (0.0-7.3) 09/08/21 04:58 Eosinophils % (Manual) 0 % (0.0-4.3) 09/08/21 04:58 Basophils % (Manual) 0 % (0.0-1.8) 09/08/21 04:58 Metamyelocytes % 0 % 09/08/21 04:58 Myelocytes % 0 % 09/08/21 04:58 Promyelocytes % 0 % 09/08/21 04:58 Blast Cells % 0 % 09/08/21 04:58 Nucleated RBC % Not Reportable 09/08/21 04:58 Seg Neutrophils # Man 15.4 K/mm3 (1.8-7.7) H 09/08/21 04:58 Band Neutrophils # 0.2 K/mm3 09/08/21 04:58 Lymphocytes # (Manual) 0.5 K/mm3 (1.2-5.4) L 09/08/21 04:58 Abs React Lymphs (Man) 0.0 K/mm3 09/08/21 04:58 Monocytes # (Manual) 0.2 K/mm3 (0.0-0.8) 09/08/21 04:58 Eosinophils # (Manual) 0.0 K/mm3 (0.0-0.4) 09/08/21 04:58 Basophils # (Manual) 0.0 K/mm3 (0.0-0.1) 09/08/21 04:58 Metamyelocytes # 0.0 K/mm3 09/08/21 04:58 Myelocytes # 0.0 K/mm3 09/08/21 04:58 Promyelocytes # 0.0 K/mm3 09/08/21 04:58 Blast Cells # 0.0 K/mm3 09/08/21 04:58 WBC Morphology Not Reportable 09/08/21 04:58 Hypersegmented Neuts Not Reportable 09/08/21 04:58 Hyposegmented Neuts Not Reportable 09/08/21 04:58 Hypogranular Neuts Not Reportable 09/08/21 04:58 Smudge Cells Not Reportable 09/08/21 04:58 Toxic Granulation Not Reportable 09/08/21 04:58 Toxic Vacuolation Not Reportable 09/08/21 04:58 Dohle Bodies Not Reportable 09/08/21 04:58 Pelger-Huet Anomaly Not Reportable 09/08/21 04:58 Robert Rods Not Reportable 09/08/21 04:58 Platelet Estimate Consistent w auto 09/08/21 04:58 Clumped Platelets Not Reportable 09/08/21 04:58 Plt Clumps, EDTA Not Reportable 09/08/21 04:58 Large Platelets Not Reportable 09/08/21 04:58 Giant Platelets Not Reportable 09/08/21 04:58 Platelet Satelliting Not Reportable 09/08/21 04:58 Plt Morphology Comment Not Reportable 09/08/21 04:58 RBC Morphology Normal 09/08/21 04:58 Dimorphic RBCs Not Reportable 09/08/21 04:58 Polychromasia Not Reportable 09/08/21 04:58 Hypochromasia Not Reportable 09/08/21 04:58 Poikilocytosis Not Reportable 09/08/21 04:58 Anisocytosis Not Reportable 09/08/21 04:58 Microcytosis Not Reportable 09/08/21 04:58 Macrocytosis Not Reportable 09/08/21 04:58 Spherocytes Not Reportable 09/08/21 04:58 Pappenheimer Bodies Not Reportable 09/08/21 04:58 Sickle Cells Not Reportable 09/08/21 04:58 Target Cells Not Reportable 09/08/21 04:58 Tear Drop Cells Not Reportable 09/08/21 04:58 Ovalocytes Not Reportable 09/08/21 04:58 Helmet Cells Not Reportable 09/08/21 04:58 Sanders-[place] Bodies Not Reportable 09/08/21 04:58 Hornick Rings Not Reportable 09/08/21 04:58 [place] Cells Not Reportable 09/08/21 04:58 Bite Cells Not Reportable 09/08/21 04:58 Crenated Cell Not Reportable 09/08/21 04:58 Elliptocytes Not Reportable 09/08/21 04:58 Acanthocytes (Spur) Not Reportable 09/08/21 04:58 Rouleaux Not Reportable 09/08/21 04:58 Hemoglobin C Crystals Not Reportable 09/08/21 04:58 Schistocytes Not Reportable 09/08/21 04:58 Malaria parasites Not Reportable 09/08/21 04:58 Ludwig Bodies Not Reportable 09/08/21 04:58 Hem Pathologist Commnt No 09/08/21 04:58 Sodium 132 mmol/L (137-145) L 09/08/21 04:58 Potassium 3.8 mmol/L (3.6-5.0) 09/08/21 04:58 Chloride 90.7 mmol/L (98-107) L 09/08/21 04:58 Carbon Dioxide 30 mmol/L (22-30) 09/08/21 04:58 Anion Gap 15 mmol/L 09/08/21 04:58 BUN 16 mg/dL (9-20) 09/08/21 04:58 Creatinine 0.6 mg/dL (0.8-1.3) L 09/08/21 04:58 Estimated GFR > 60 ml/min 09/08/21 04:58 BUN/Creatinine Ratio 27 % 09/08/21 04:58 Glucose 21 mg/dL (75-100) L* 09/08/21 04:58 POC Glucose 137 mg/dL (70-105) H 09/09/21 07:42 Lactic Acid 1.40 mmol/L (0.7-2.0) 09/07/21 15:23 Calcium 8.7 mg/dL (8.4-10.2) 09/08/21 04:58 Total Bilirubin 0.20 mg/dL (0.1-1.2) 09/08/21 04:58 AST 27 units/L (5-40) 09/08/21 04:58 ALT 10 units/L (7-56) 09/08/21 04:58 Alkaline Phosphatase 131 units/L (35-129) H 09/08/21 04:58 Troponin T 0.013 ng/mL (0.00-0.029) 09/07/21 13:13 Total Protein 7.5 g/dL (6.3-8.2) 09/08/21 04:58 Albumin 2.2 g/dL (3.9-5) L 09/08/21 04:58 Albumin/Globulin Ratio 0.4 % 09/08/21 04:58 Urine Color Yellow (Yellow) 09/08/21 10:40 Urine Turbidity Clear (Clear) 09/08/21 10:40 Urine pH 6.0 (5.0-7.0) 09/08/21 10:40 Ur Specific [place] 1.015 (1.003-1.030) 09/08/21 10:40 Urine Protein <30 mg dl mg/dL (Negative) 09/08/21 10:40 Urine Glucose (UA) Negative mg/dL (Negative) 09/08/21 10:40 Urine Ketones Negative mg/dL (Negative) 09/08/21 10:40 Urine Blood Negative (Negative) 09/08/21 10:40 Urine Nitrite Positive (Negative) 09/08/21 10:40 Ur Reducing Substances Not Reportable 09/08/21 10:40 Urine Bilirubin Negative (Negative) 09/08/21 10:40 Urine Ictotest Not Reportable 09/08/21 10:40 Urine Urobilinogen < 2.0 mg/dL (<2.0) 09/08/21 10:40 Ur Leukocyte Esterase Small (Negative) 09/08/21 10:40 Urine WBC (Auto) 62.0 /HPF (0.0-6.0) H 09/08/21 10:40 Urine RBC (Auto) 11.0 /HPF (0.0-6.0) 09/08/21 10:40 U Epithel Cells (Auto) 5.0 /HPF (0-13.0) 09/08/21 10:40 Urine Bacteria (Auto) 4+ /HPF (Negative) 09/08/21 10:40 Hyaline Casts 3 /LPF 09/08/21 10:40 Blood Type A POSITIVE 09/07/21 13:55 Antibody Screen Negative 09/07/21 13:55 Microbiology: Microbiology 09/07/21 13:13 Peripheral/Venous Blood Culture - Preliminary 09/07/21 13:13 Peripheral/Venous Blood Culture - Preliminary Neville/IV: Voiding Method Condom Catheter Active Medications - Current Medications Current Medications: Generic Name Dose Route Start Last Admin Trade Name Freq PRN Reason Stop Dose Admin Acetaminophen 650 mg 09/07/21 22:04 Acetaminophen 325 Mg Tab PO Q4H PRN Pain MILD(1-3)/Fever >100.5/HORNER Atorvastatin Calcium 40 mg 09/08/21 22:00 09/08/21 22:49 Atorvastatin 40 Mg Tab PO 40 mg QHS URSULA Administration Folic Acid 1 mg 09/09/21 10:00 Folic Acid 1 Mg Tab PO QDAY URSULA Heparin Sodium (Porcine) 5,000 unit 09/08/21 10:00 09/08/21 22:49 Heparin 5,000 Unit/1 Ml Vial SUB-Q 5,000 unit Q12HR URSULA Administration Dextrose/Sodium Chloride 1,000 mls @ 100 mls/hr 09/07/21 23:00 09/09/21 05:11 D5ns IV 100 mls/hr DIRECT URSULA Administration Ampicillin Sodium/Sulbactam Sodium 3 gm in 100 mls @ 100 mls/hr 09/08/21 00:00 09/09/21 00:00 Unasyn/Ns 3 Gm/100 Ml IV 100 mls/hr Q6HR URSULA Administration Protocol Vancomycin HCl 1 gm in 250 mls @ 250 mls/hr 09/08/21 16:00 09/09/21 05:11 Vancomycin/Ns 1 Gm/250 Ml IV 250 mls/hr Q12H URSULA Administration Insulin Human Lispro 0 unit 09/08/21 07:30 09/09/21 07:30 Insulin Lispro 100 Unit/Ml SUB-Q Not Given ACHS URSULA Protocol Magnesium Citrate 300 ml 09/09/21 09:00 Magnesium Citrate 300 Ml Oral Liqd PO 09/09/21 11:00 ONCE@0900 URSULA Metoclopramide HCl 10 mg 09/07/21 22:04 Metoclopramide 10 Mg/2 Ml Inj IV Q6H PRN Nausea And Vomiting Metoprolol Tartrate 25 mg 09/08/21 22:00 09/08/21 22:49 Metoprolol Tartrate 25 Mg Tab PO 25 mg BID URSULA Administration Morphine Sulfate 2 mg 09/07/21 22:04 Morphine 2 Mg/1 Ml Inj IV Q4H PRN Pain, Moderate (4-6) Ondansetron HCl 4 mg 09/07/21 22:04 Ondansetron 4 Mg/2 Ml Inj IV Q8H PRN Nausea And Vomiting Sodium Chloride 10 ml 09/07/21 23:00 09/08/21 22:50 Sodium Chloride 0.9% 10 Ml Flush Syringe IV 10 ml BID URSULA Administration Sodium Chloride 10 ml 09/07/21 22:04 Sodium Chloride 0.9% 10 Ml Flush Syringe IV PRN PRN LINE FLUSH Nutrition/Malnutrition Assess - Dietary Evaluation Nutrition/Malnutrition Findings: Nutrition Notes Start: 09/08/21 15:58 Freq: Status: Active Protocol: Document 09/08/21 15:58 AR (Rec: 09/08/21 16:42 AR [id number]) Nutrition Notes Need for Assessment generated from: review consultant,MST Initial or Follow up Assessment Current Diagnosis Decubitus(Pressure Ulcer), Diabetes,Malnutrition Other Pertinent Diagnosis Anemia, Hypoglycemia. Current Diet Clear Liquids Diet (since D ), NPO (09/09 00:01). Labs/Tests 09/08: Na 132, Cl 90.7, Crea 0 .6, Glu 21. Pertinent Medications 09/08: D5w/0.45ns @ 100ml/hr, Folic acid, others nutritionally unremarkable. Height 5 ft 8 in Weight 63.503 kg [place] Body Weight (kg) 70.00 BMI 21.2 Intake Prior to Admission Poor Weight change and time frame Pt states being unsure if loss body weight SENIOR RESERVATIONS AGENT. Weight Status Appropriate Subjective/Other Information RD consult for skin risk, risk of malnutrition and difficulty chewing assessments . Pt started with Cardiac Diet, followed by Pureed Diet the next meal and then Clear Liquids Diet tonight, before going NPO due to a procedure planned for tomorrow. Pt's PO intake of meals has been Fair (50%) but well tolerated, according to ADL notes. Pt is on Room Air, O2 saturation @ 98%, according to Physical Assessment History notes. Pt has missing teeth, according to Physical Assessment History notes. Pt shows somehow swallow difficulty and difficulty chewing, according to Physical Assessment History notes, but no proper assessment has been performed at the time. Pt presents several decubitus ulcers stage IV in the sacral and buttocks area as signs of concern for skin risk at the time, according to Physical Assessment History notes and Admison Documents. Pt shows no signs of concern for risk of malnutrition at the time, according to Physical Assessment History notes. I strongly recommend a SENIOR RESEARCH ASSOCIATE assessment to facilitate a safe PO intake of meals when pertinent. When pertinent (at F/U), I will prescribe dietary supplements to compensate for poor or insufficient PO intake of meals and support wound healing processes during LOS. Percent of energy/protein needs met: Prescribed Clear Liquids Diet provides for energy/protein needs (590 Kcal/16 g) during LOS. Pt will be on NPO after midnight. Burn Absent Trauma Absent GI Symptoms None Food Allergy No Skin Integrity/Comment Sacral/Buttocks Stage IV Ulcers. Current % PO Fair (50-74%) Minimum of two criteria No Fluid Accumulation N/A Reduced Historic Preservationist Strength N/A (non-severe) Protein-Calorie Malnutrition N\A #2 Nutrition Diagnosis Predicted suboptimal energy intake Comments: I strongly recommend a SENIOR RESEARCH ASSOCIATE assessment to facilitate a safe PO intake of meals when pertinent. Etiology Possibly AMS or difficulty to chew and swallow food. As Evidenced by Signs and Symptoms Pt's PO intake of meals has been Fair (50%) but well tolerated, according to ADL notes. #1 Nutrition Diagnosis Increased nutrient needs ( specify in comment below) Comments: Protein to support wound healing processes. Etiology Pt is bedbound, negligence. As Evidenced by Signs and Symptoms Pt presents several decubitus ulcers stage IV in the sacral and buttocks area as signs of concern for skin risk at the time, according to Physical Assessment History notes and Admison Documents. Is patient on ventilator? No Is Patient Ambulatory and/or Out of Bed No REE-([place]-confined to bed) [phone] Kcal/Kg value to use for calculation 29 Approximate Energy Requirements Using 1842 kcal/Kg Calculation Used for Recommendations Kcal/kg Additional Notes Protein: 0.25-1.5 g/Kg ABW; 80 -96 g/day. Fluids: 1 ml/Kcal, or as per MD. Nutrition Intervention Change Diet Order: When pertinent advance to PO diet following SENIOR RESEARCH ASSOCIATE recommendations. Add Supplement/Snack (indicate name/kcal When pertinent, start 8 fl oz /protein ) Glucerna; BID. When pertinent, start 28.8 g pkt Juanjose; BID. Provides kCal: 630 Provides Protein (gm) 25 Goal #1 Support, through dietary supplementation, wound healing processes during LOS. Goal #2 Compensate, through dietary supplementation, for possible poor or insufficient PO intake of meals during LOS. Goal #3 Facilitate PO intake of meals with elemental, textural, or mechanical modification during LOS. Follow-Up By: 09/09/21 Additional Comments When pertinent, start monitoring food tolerance, %PO intake of meals, dietary supplements, and BM.
[2021-09-09] MEDS ORDERED: MAGNESIUM CITRATE 300 ML ORAL LIQD PO SCH (09:00)
[2021-09-09] MEDS ORDERED: MIDODRINE 10 MG TAB PO ONE (09:00)
[2021-09-09] MEDS: METOPROLOL TARTRATE 25 MG TAB PO SCH ×2 (09:41→22:11)
[2021-09-09] MEDS ORDERED: SODIUM CHLORIDE 0.9% 500 ML 500 ML IV SCH (09:54)
[2021-09-09] MEDS ORDERED: FUROSEMIDE 40 MG/4 ML INJ IV SCH (11:00)
[2021-09-09 11:26] LABS: INR 0.95 (0.87-1.13)
[2021-09-09 11:27] LABS: Partial Thromboplastin Time 45.4 Sec. (24.2-36.6)
[2021-09-09] MEDS: FOLIC ACID 1 MG TAB PO SCH ×2 (12:34→18:13)
[2021-09-09] MEDS: HEPARIN 5,000 UNIT/1 ML VIAL SUB-Q SCH ×2 (12:34→22:10)
[2021-09-09] MEDS ORDERED: dexAMETHasone 20 MG/5 ML VIAL ONE (12:45)
[2021-09-09] MEDS ORDERED: propofoL 200 MG/20 ML VIAL IV ONE (12:45)
[2021-09-09] MEDS ORDERED: fentaNYL 100 MCG/2 ML INJ ONE (12:45)
[2021-09-09] MEDS ORDERED: LIDOCAINE MPF (2%) 20 MG/1 ML VIAL 5 ML ONE (12:45)
[2021-09-09] MEDS ORDERED: ROCURONIUM 50 MG/5 ML INJ IV ONE (12:45)
[2021-09-09] MEDS ORDERED: LACTATED RINGERS 1,000 ML ONE (12:57)
--- NOTE | 2021-09-09 13:05 | Anesthesia Day of Surgery ---
Anesthesia Day of Surgery - Day of Surgery Patient Examined: Yes Patient H&P Reviewed: Yes Patient is NPO: Yes
--- NOTE | 2021-09-09 13:08 | Anesthesia Consultation ---
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
[2021-09-09] MEDS ORDERED: SODIUM HYPOCHLORITE, DAKIN'S FULL STRENGTH (0.5%) 473 ML TOPICAL SOLN ONE (13:09)
[2021-09-09] MEDS ORDERED: LIDOCAINE (1%) 10 MG/1 ML VIAL 20 ML MDV ONE (13:09)
[2021-09-09] MEDS ORDERED: BUPIVACAINE-EPINEPHRINE/PF 0.5%-1:200,000 (30 ML) VIAL INFILTRATI ONE ×2 (13:10→14:29)
[2021-09-09] MEDS ORDERED: MIDAZOLAM 2 MG/2 ML INJ ONE (13:28)
[2021-09-09] MEDS ORDERED: ONDANSETRON 4 MG/2 ML INJ IV PRN (13:30)
[2021-09-09] MEDS ORDERED: HYDROmorphone 0.5 MG/0.5 ML INJ IV PRN ×2 (13:30)
[2021-09-09] MEDS ORDERED: LIDOCAINE (1%) 10 MG/1 ML VIAL 20 ML MDV INFILTRATI ONE (14:39)
[2021-09-09] MEDS ORDERED: SODIUM CHLORIDE 0.9% IRRIG SOLN 2000 ML IR ONE (14:50)
[2021-09-09] MEDS ORDERED: KETOROLAC 30 MG/1 ML INJ ONE (15:21)
[2021-09-09] MEDS ORDERED: ONDANSETRON 4 MG/2 ML INJ ONE (15:21)
[2021-09-09] MEDS ORDERED: SODIUM HYPOCHLORITE, DAKIN'S 1/2 STRENGTH (0.25%) 473 ML TOPICAL SOLN IR ONE (15:28)
[2021-09-09] MEDS ORDERED: LACTATED RINGERS 1,000 ML IV SCH (15:30)
--- NOTE | 2021-09-09 16:09 | Operative Report ---
Operative Report Operative Report: Date of procedure: 09/09/2021 Preop diagnosis: Large sacral and perianal anal decubitus ulcer. Postop diagnosis: Same Procedure: Laparoscopic assisted end sigmoid colostomy and debridement of sacral decubitus ulcer Surgeon: Dr. Titus Flanging Roll Operator: Dr. Bonilla Anesthesia: General endotracheal anesthesia Estimated blood loss: 10 cc Specimen: Wound cultures from the deep aspect of the decubitus ulcer Findings: This is a 60-year-old patient with a chronic debilitating disease. Timeout is on the chart consent is on the chart General endotracheal anesthesia the patient is in a supine position. Abdomen is prepped with ChloraPrep and draped in a sterile fashion. A 3 mm incision is made in the left upper quadrant and a Veress needle was used to gain access to the peritoneal cavity. Abdomen is insufflated with CO2. 5 Leonard port is established in the right upper quadrant and in the infraumbilical position. A 12 Leonard port is established in the right lower quadrant 1 cm superior to the anterior superior iliac spine. The abdomen is inspected. Table is placed in the Trendelenburg. Sigmoid colon is located. The rectosigmoid junction is skeletonized. The Endo ELI stapler is then used to divide the colon at the rectosigmoid junction. The mesocolon is dissected off the sacral promontory I am a is visualized and preserved. The lateral line of Toldt is divided. At this point the sigmoid colon is felt to have been mobilized enough to allow it to be exterior exteriorized. A 2 cm circular incision is made in the skin in the left lower quadrant equidistant between the superior anterior leg spine on the left and the umbilicus electrocautery was used to extend the incision through the subcutaneous tissue and the fascia and muscle fibers are seen but it using [place] retractors. The peritoneum was then grasped with hemostats and incised the stapled end of the sigmoid colon is visualized grasped with a Mati and brought out through the wound without difficulty and held in place with Babcocks on the staple line. CO2 is allowed to exit the abdomen all ports are removed the 12mm portal fascial defect is closed with a 0 Vicryl suture on a UR needle skin incisions before the portals are then closed with Dermabond and 4-0 Monocryl. The end colostomy was then matured with 3-0 Vicryl and the colostomy bag is placed. The patient is then turned to the lateral decubitus position with his left side up. The decubitus ulcer is prepped with Betadine and draped in a sterile fashion . Thick necrotic tissue was encountered and debrided mechanically with a curved Gifford and an Allis forceps. The decubitus also measures 15 x 10 x 2.5 cm initially. After that debridement, the decubitus measured 15 x 10 x 3 cm. Necrotic skin subcutaneous tissue and muscle are debrided. Electrocautery was used for hemostasis. The wound is then irrigated with copious amounts of saline. Dakin's quarter percent soaked Kerlix gauze is then used to pack the wound. Sterile dressings placed over this.
[2021-09-09] MEDS ORDERED: ePHEDrine SULFATE 50 MG/1 ML INJ ONE (16:49)
[2021-09-09] MEDS ORDERED: ePHEDrine SULFATE 50 MG/1 ML INJ IM ONE (16:55)
[2021-09-09] MEDS: MIDODRINE 10 MG TAB PO SCH (18:13)
--- NOTE | 2021-09-09 20:12 | Event Note ---
Date: 09/09/21 Patient underwent surgical procedure today per Dr. Titus 1.Large sacral and perianal, anal decubitus ulcer status post surgical debridement of sacral decubitus ulcer 2.Laparoscopic-assisted end sigmoid colostomy Patient tolerated the procedure well Postop management per surgeon We will closely monitor the patient and adjust the management as needed
[2021-09-09] MEDS: SODIUM HYPOCHLORITE, DAKIN'S FULL STRENGTH (0.5%) 473 ML TOPICAL SOLN TP SCH (21:07)
[2021-09-10] MEDS: AMPICILLIN/SULBACTA 3GM/100ML 3 GM/100 ML BAG IV SCH ×4 (01:04→18:26)
[2021-09-10] MEDS: VANCOMYCIN/NS 1 GM/250 ML 1 GM/250 ML BAG IV SCH ×2 (04:44→16:42)
[2021-09-10 06:23] LABS: Basophils % (Auto) 0.2 % (0.0-1.8); Eosinophils # (Auto) 0.1 K/mm3 (0.0-0.4); Eosinophils % (Auto) 1.4 % (0.0-4.3); Hemoglobin 7.6 gm/dl (11.8-15.2); Lymphocytes % (Auto) 12.6 % (13.4-35.0); Mean Corpuscular HGB Conc 33 % (32-34); Mean Corpuscular Volume 87 fl (84-94); Monocytes # (Auto) 0.3 K/mm3 (0.0-0.8); Monocytes % (Auto) 3.5 % (0.0-7.3); Platelet Count 578 K/mm3 (140-440); Red Blood Count 2.65 M/mm3 (3.65-5.03); Red Cell Distribution Width 14.2 % (13.2-15.2)
[2021-09-10] MEDS ORDERED: SODIUM CHLORIDE 0.9% 1000 ML 1,000 ML IV ONE (06:30)
[2021-09-10 06:43] LABS: Blood Urea Nitrogen 6 mg/dL (9-20); Calcium 8.2 mg/dL (8.4-10.2); Hemolysis Index 1
[2021-09-10 06:44] LABS: BUN/Creatinine Ratio 12
[2021-09-10] MEDS: INSULIN LISPRO 100 UNIT/ML SUB-Q SCH ×3 (07:45→16:42)
[2021-09-10] MEDS: MIDODRINE 10 MG TAB PO SCH ×2 (08:54→18:26)
[2021-09-10] MEDS: FOLIC ACID 1 MG TAB PO SCH (10:54)
[2021-09-10] MEDS: HEPARIN 5,000 UNIT/1 ML VIAL SUB-Q SCH ×2 (10:54→21:26)
[2021-09-10] MEDS: METOPROLOL TARTRATE 25 MG TAB PO SCH ×2 (10:55→21:37)
[2021-09-10] MEDS: SODIUM HYPOCHLORITE, DAKIN'S FULL STRENGTH (0.5%) 473 ML TOPICAL SOLN TP SCH (10:56)
--- NOTE | 2021-09-10 11:03 | Progress Note ---
Assessment and Plan 60-year-old male with history of diabetes presents to the emergency department complaining of hypoglycemia noticed by family this morning. Patient denies any complaints, currently, however is a poor historian. Patient's daughter reports that the patient had a blood sugar of 55 at home, EMS gave the patient D50, and the blood sugar came up to 122. Patient denies any complaints, but does report that he has not been eating, well. Patient's family thinks that the sacral decubitus that is getting worse is the cause of his hypoglycemia. Sacral decubitus is extensive with exposure of sacral bone at its upper end. Extension of the ulceration to around the anus. And exposure of the rectum. Continue local wound care with Dakin's soaked gauze changing the wound twice daily and as needed. Subjective Date of service: 09/10/21 Patient Reports: Positive: no new complaints, tolerating a regular diet Narrative: Patient status post laparoscopic-assisted diversion with end sigmoid colostomy and extensive debridement of sacral decubitus. He feels well this morning. Ostomy is already functioning. He is tolerating a soft diet. Sacral decubitus is extensive with exposure of sacral bone at its upper end. Extension of the ulceration to around the anus. And exposure of the rectum. Continue local wound care with Dakin's soaked gauze changing the wound twice daily and as needed. Objective Vital Signs - 12hr 09/09/21 09/10/21 09/10/21 23:00 05:00 05:42 Temperature 97.8 F 98.0 F Pulse Rate 90 91 H Respiratory 17 18 18 Rate Blood Pressure 87/55 Blood Pressure 87/55 [Left] O2 Sat by Pulse 100 95 100 Oximetry 09/10/21 09:04 Temperature Pulse Rate 91 H Respiratory Rate Blood Pressure 95/50 Blood Pressure [Left] O2 Sat by Pulse 100 Oximetry - Labs 09/10/21 05:59 09/10/21 05:59 Diabetes panel 09/10/21 Range/Units 05:59 Sodium 136 L (137-145) mmol/L Potassium 3.3 L (3.6-5.0) mmol/L Chloride 102.5 (98-107) mmol/L Carbon Dioxide 26 (22-30) mmol/L BUN 6 L (9-20) mg/dL Creatinine 0.5 L (0.8-1.3) mg/dL Glucose 160 H (75-100) mg/dL Calcium 8.2 L (8.4-10.2) mg/dL Calcium panel 09/10/21 Range/Units 05:59 Calcium 8.2 L (8.4-10.2) mg/dL Pituitary panel 09/10/21 Range/Units 05:59 Sodium 136 L (137-145) mmol/L Potassium 3.3 L (3.6-5.0) mmol/L Chloride 102.5 (98-107) mmol/L Carbon Dioxide 26 (22-30) mmol/L BUN 6 L (9-20) mg/dL Creatinine 0.5 L (0.8-1.3) mg/dL Glucose 160 H (75-100) mg/dL Calcium 8.2 L (8.4-10.2) mg/dL Adrenal panel 09/10/21 Range/Units 05:59 Sodium 136 L (137-145) mmol/L Potassium 3.3 L (3.6-5.0) mmol/L Chloride 102.5 (98-107) mmol/L Carbon Dioxide 26 (22-30) mmol/L BUN 6 L (9-20) mg/dL Creatinine 0.5 L (0.8-1.3) mg/dL Glucose 160 H (75-100) mg/dL Calcium 8.2 L (8.4-10.2) mg/dL
--- NOTE | 2021-09-10 12:26 | Post Anesthesia Evaluation ---
- Post Anesthesia Evaluation Patient Participated: Yes Airway Patent: Yes Stable Respiratory Function: Yes Nausea/Vomiting: No Temp > 96.8F: Yes Pain Manageable: Yes Adequeate Hydration: Yes Anesthesia Complications: No Block Receding Appropriately: Not Applicable Patient on Ventilator: No
--- NOTE | 2021-09-10 18:47 | Progress Note ---
Assessment and Plan Assessment and plan: -- Sacral decubitus ulcer, stage IV Severe sacral decubitus ulcer about 12 cm [place] VIII centimeters X depth of about 2 cm with eschar formation over half of the decubitus ulcer Evaluated by surgeon patient underwent surgical procedure 09/09/2021 Large sacral decubitus ulcer, stage IV Evaluated by surgeon Dr. Titus s/p surgical procedure 09/09/21 s/pPatient status post laparoscopic-assisted diversion with end sigmoid colostomy and extensive debridement of sacral decubitus. Ostomy is functioning, patient is tolerating soft diet Postop care per surgeon, continue wound care, antibiotics, dietary supplements -- Hypoglycemia/resolved Persistent hypoglycemia IV D5W with normal saline Probably due to poor oral intake D50 W and glucagon as necessary Etiology of hypoglycemia unclear Poor p.o. intake --Hyponatremia Mild improvement Na improved from 128-132 this morning Continue normal saline closely monitor electrolytes --Anemia[dropped from 10.2-8.6 since admission] Closely monitor H&H, transfuse as needed No external evidence of bleeding, stool for occult blood Closely monitor -- Severe protein calorie malnutrition With hypoalbuminemia, nutrition supplements Nutrition consult and supportive care --Severe hyper anemia; albumin2.2 nutrition supplements, nutrition consult Supportive care -- DVT prophylaxis Subcu heparin and GI prophylaxis -- Advance care planning Could not be done because of logistics Plan of care reviewed with the patient and his nurse 09/08;I also discussed extensively with surgeon Dr. Titus Is planning surgical debridement tomorrow if patient is stable N.p.o. from midnight 09/09; patient is n.p.o. status, scheduled for surgical debridement Surgeon requested echocardiogram, echo ordered We will also add PT, INR and PTT 09/10; postop care per surgical team, patient tolerating soft diet Mild hypokalemia, replenished with KCl and follow electrolytes Surgeon is planning wound VAC on 09/12/2021 History Interval history: Seen and examined the patient at the bedside Patient's chart and medications reviewed Patient underwent surgical debridement of sacral decubitus and diverging colostomy yesterday tolerated the procedure well Patient is on soft diet today tolerating Postop care per surgical team Vital signs noted Hospitalist Physical - Constitutional Vitals: Temp Pulse Resp BP Pulse Ox 98.1 F 94 H 16 127/69 99 09/10/21 16:03 09/10/21 11:38 09/10/21 16:03 09/10/21 16:03 09/10/21 11:38 General appearance: Present: no acute distress, well-nourished - EENT Eyes: Present: PERRL, EOM intact - Neck Neck: Present: supple, normal ROM - Respiratory Respiratory effort: normal Respiratory: bilateral: diminished, negative: rales, rhonchi, wheezing - Cardiovascular Rhythm: regular Heart Sounds: Present: S1 & S2 - Extremities Extremities: no ischemia, No edema - Abdominal General gastrointestinal: soft, non-tender, non-distended, normal bowel sounds, other (Colostomy in place) - Integumentary Integumentary: Present: clear, warm - Psychiatric Psychiatric: appropriate mood/affect, cooperative - Neurologic Neurologic: moves all extremities HEART Score - HEART Score Troponin: Troponin T 0.013 ng/mL (0.00-0.029) 09/07/21 13:13 Results - Labs CBC & Chem 7: 09/10/21 05:59 09/10/21 05:59 Labs: Laboratory Last Values WBC 8.3 K/mm3 (4.5-11.0) 09/10/21 05:59 RBC 2.65 M/mm3 (3.65-5.03) L 09/10/21 05:59 Hgb 7.6 gm/dl (11.8-15.2) L 09/10/21 05:59 Hct 23.0 % (35.5-45.6) L 09/10/21 05:59 MCV 87 fl (84-94) 09/10/21 05:59 MCH 29 pg (28-32) 09/10/21 05:59 MCHC 33 % (32-34) 09/10/21 05:59 RDW 14.2 % (13.2-15.2) 09/10/21 05:59 Plt Count 578 K/mm3 (140-440) H 09/10/21 05:59 Lymph % (Auto) 12.6 % (13.4-35.0) L 09/10/21 05:59 [place] % (Auto) 3.5 % (0.0-7.3) 09/10/21 05:59 Eos % (Auto) 1.4 % (0.0-4.3) 09/10/21 05:59 Baso % (Auto) 0.2 % (0.0-1.8) 09/10/21 05:59 Lymph # (Auto) 1.0 K/mm3 (1.2-5.4) L 09/10/21 05:59 [place] # (Auto) 0.3 K/mm3 (0.0-0.8) 09/10/21 05:59 Eos # (Auto) 0.1 K/mm3 (0.0-0.4) 09/10/21 05:59 Baso # (Auto) 0.0 K/mm3 (0.0-0.1) 09/10/21 05:59 Add Manual Diff Complete 09/08/21 04:58 Total Counted 100 09/08/21 04:58 Seg Neutrophils % 82.3 % (40.0-70.0) H 09/10/21 05:59 Seg Neuts % (Manual) 95.0 % (40.0-70.0) H 09/08/21 04:58 Band Neutrophils % 1.0 % 09/08/21 04:58 Lymphocytes % (Manual) 3.0 % (13.4-35.0) L 09/08/21 04:58 Reactive Lymphs % (Man) 0 % 09/08/21 04:58 Monocytes % (Manual) 1.0 % (0.0-7.3) 09/08/21 04:58 Eosinophils % (Manual) 0 % (0.0-4.3) 09/08/21 04:58 Basophils % (Manual) 0 % (0.0-1.8) 09/08/21 04:58 Metamyelocytes % 0 % 09/08/21 04:58 Myelocytes % 0 % 09/08/21 04:58 Promyelocytes % 0 % 09/08/21 04:58 Blast Cells % 0 % 09/08/21 04:58 Nucleated RBC % Not Reportable 09/08/21 04:58 Seg Neutrophils # 6.8 K/mm3 (1.8-7.7) 09/10/21 05:59 Seg Neutrophils # Man 15.4 K/mm3 (1.8-7.7) H 09/08/21 04:58 Band Neutrophils # 0.2 K/mm3 09/08/21 04:58 Lymphocytes # (Manual) 0.5 K/mm3 (1.2-5.4) L 09/08/21 04:58 Abs React Lymphs (Man) 0.0 K/mm3 09/08/21 04:58 Monocytes # (Manual) 0.2 K/mm3 (0.0-0.8) 09/08/21 04:58 Eosinophils # (Manual) 0.0 K/mm3 (0.0-0.4) 09/08/21 04:58 Basophils # (Manual) 0.0 K/mm3 (0.0-0.1) 09/08/21 04:58 Metamyelocytes # 0.0 K/mm3 09/08/21 04:58 Myelocytes # 0.0 K/mm3 09/08/21 04:58 Promyelocytes # 0.0 K/mm3 09/08/21 04:58 Blast Cells # 0.0 K/mm3 09/08/21 04:58 WBC Morphology Not Reportable 09/08/21 04:58 Hypersegmented Neuts Not Reportable 09/08/21 04:58 Hyposegmented Neuts Not Reportable 09/08/21 04:58 Hypogranular Neuts Not Reportable 09/08/21 04:58 Smudge Cells Not Reportable 09/08/21 04:58 Toxic Granulation Not Reportable 09/08/21 04:58 Toxic Vacuolation Not Reportable 09/08/21 04:58 Dohle Bodies Not Reportable 09/08/21 04:58 Pelger-Huet Anomaly Not Reportable 09/08/21 04:58 Robert Rods Not Reportable 09/08/21 04:58 Platelet Estimate Consistent w auto 09/08/21 04:58 Clumped Platelets Not Reportable 09/08/21 04:58 Plt Clumps, EDTA Not Reportable 09/08/21 04:58 Large Platelets Not Reportable 09/08/21 04:58 Giant Platelets Not Reportable 09/08/21 04:58 Platelet Satelliting Not Reportable 09/08/21 04:58 Plt Morphology Comment Not Reportable 09/08/21 04:58 RBC Morphology Normal 09/08/21 04:58 Dimorphic RBCs Not Reportable 09/08/21 04:58 Polychromasia Not Reportable 09/08/21 04:58 Hypochromasia Not Reportable 09/08/21 04:58 Poikilocytosis Not Reportable 09/08/21 04:58 Anisocytosis Not Reportable 09/08/21 04:58 Microcytosis Not Reportable 09/08/21 04:58 Macrocytosis Not Reportable 09/08/21 04:58 Spherocytes Not Reportable 09/08/21 04:58 Pappenheimer Bodies Not Reportable 09/08/21 04:58 Sickle Cells Not Reportable 09/08/21 04:58 Target Cells Not Reportable 09/08/21 04:58 Tear Drop Cells Not Reportable 09/08/21 04:58 Ovalocytes Not Reportable 09/08/21 04:58 Helmet Cells Not Reportable 09/08/21 04:58 Sanders-Bayard Bodies Not Reportable 09/08/21 04:58 Chana Rings Not Reportable 09/08/21 04:58 Frost Cells Not Reportable 09/08/21 04:58 Bite Cells Not Reportable 09/08/21 04:58 Crenated Cell Not Reportable 09/08/21 04:58 Elliptocytes Not Reportable 09/08/21 04:58 Acanthocytes (Spur) Not Reportable 09/08/21 04:58 Rouleaux Not Reportable 09/08/21 04:58 Hemoglobin C Crystals Not Reportable 09/08/21 04:58 Schistocytes Not Reportable 09/08/21 04:58 Malaria parasites Not Reportable 09/08/21 04:58 Ludwig Bodies Not Reportable 09/08/21 04:58 Hem Pathologist Commnt No 09/08/21 04:58 PT 13.7 Sec. (12.2-14.9) 09/09/21 10:29 INR 0.95 (0.87-1.13) 09/09/21 10:29 APTT 45.4 Sec. (24.2-36.6) H 09/09/21 10:29 Sodium 136 mmol/L (137-145) L 09/10/21 05:59 Potassium 3.3 mmol/L (3.6-5.0) L 09/10/21 05:59 Chloride 102.5 mmol/L (98-107) 09/10/21 05:59 Carbon Dioxide 26 mmol/L (22-30) 09/10/21 05:59 Anion Gap 11 mmol/L 09/10/21 05:59 BUN 6 mg/dL (9-20) L 09/10/21 05:59 Creatinine 0.5 mg/dL (0.8-1.3) L 09/10/21 05:59 Estimated GFR > 60 ml/min 09/10/21 05:59 BUN/Creatinine Ratio 12 % 09/10/21 05:59 Glucose 160 mg/dL (75-100) H 09/10/21 05:59 POC Glucose 264 mg/dL (70-105) H 09/10/21 15:56 Lactic Acid 1.40 mmol/L (0.7-2.0) 09/07/21 15:23 Calcium 8.2 mg/dL (8.4-10.2) L 09/10/21 05:59 Total Bilirubin 0.20 mg/dL (0.1-1.2) 09/08/21 04:58 AST 27 units/L (5-40) 09/08/21 04:58 ALT 10 units/L (7-56) 09/08/21 04:58 Alkaline Phosphatase 131 units/L (35-129) H 09/08/21 04:58 Troponin T 0.013 ng/mL (0.00-0.029) 09/07/21 13:13 Total Protein 7.5 g/dL (6.3-8.2) 09/08/21 04:58 Albumin 2.2 g/dL (3.9-5) L 09/08/21 04:58 Albumin/Globulin Ratio 0.4 % 09/08/21 04:58 Urine Color Yellow (Yellow) 09/08/21 10:40 Urine Turbidity Clear (Clear) 09/08/21 10:40 Urine pH 6.0 (5.0-7.0) 09/08/21 10:40 Ur Specific [place] 1.015 (1.003-1.030) 09/08/21 10:40 Urine Protein <30 mg dl mg/dL (Negative) 09/08/21 10:40 Urine Glucose (UA) Negative mg/dL (Negative) 09/08/21 10:40 Urine Ketones Negative mg/dL (Negative) 09/08/21 10:40 Urine Blood Negative (Negative) 09/08/21 10:40 Urine Nitrite Positive (Negative) 09/08/21 10:40 Ur Reducing Substances Not Reportable 09/08/21 10:40 Urine Bilirubin Negative (Negative) 09/08/21 10:40 Urine Ictotest Not Reportable 09/08/21 10:40 Urine Urobilinogen < 2.0 mg/dL (<2.0) 09/08/21 10:40 Ur Leukocyte Esterase Small (Negative) 09/08/21 10:40 Urine WBC (Auto) 62.0 /HPF (0.0-6.0) H 09/08/21 10:40 Urine RBC (Auto) 11.0 /HPF (0.0-6.0) 09/08/21 10:40 U Epithel Cells (Auto) 5.0 /HPF (0-13.0) 09/08/21 10:40 Urine Bacteria (Auto) 4+ /HPF (Negative) 09/08/21 10:40 Hyaline Casts 3 /LPF 09/08/21 10:40 Vancomycin Trough 25.2 ug/mL (5.0-20.0) H 09/10/21 13:25 Blood Type A POSITIVE 09/07/21 13:55 Antibody Screen Negative 09/07/21 13:55 Microbiology: Microbiology 09/08/21 10:40 Urine,Clean Catch Urine Culture - Final 09/07/21 13:13 Peripheral/Venous Blood Culture - Preliminary 09/07/21 13:13 Peripheral/Venous Blood Culture - Preliminary [place]/IV: Voiding Method Indwelling Catheter Active Medications - Current Medications Current Medications: Generic Name Dose Route Start Last Admin Trade Name Freq PRN Reason Stop Dose Admin Acetaminophen 650 mg 09/07/21 22:04 Acetaminophen 325 Mg Tab PO Q4H PRN Pain MILD(1-3)/Fever >100.5/HORNER Atorvastatin Calcium 40 mg 09/08/21 22:00 09/09/21 22:10 Atorvastatin 40 Mg Tab PO 40 mg QHS URSULA Administration Folic Acid 1 mg 09/09/21 10:00 09/10/21 10:54 Folic Acid 1 Mg Tab PO 1 mg QDAY URSULA Administration Heparin Sodium (Porcine) 5,000 unit 09/08/21 10:00 09/10/21 10:54 Heparin 5,000 Unit/1 Ml Vial SUB-Q 5,000 unit Q12HR URSULA Administration Dextrose/Sodium Chloride 1,000 mls @ 100 mls/hr 09/07/21 23:00 09/09/21 18:17 D5ns IV 100 mls/hr DIRECT URSULA Administration Ampicillin Sodium/Sulbactam Sodium 3 gm in 100 mls @ 100 mls/hr 09/08/21 00:00 09/10/21 18:26 Unasyn/Ns 3 Gm/100 Ml IV 100 mls/hr Q6HR URSULA Administration Protocol Vancomycin HCl 1 gm in 250 mls @ 250 mls/hr 09/08/21 16:00 09/10/21 16:42 Vancomycin/Ns 1 Gm/250 Ml IV Not Given Q12H [facility] Insulin Human Lispro 0 unit 09/08/21 07:30 09/10/21 16:42 Insulin Lispro 100 Unit/Ml SUB-Q 3 unit ACHS [facility] Administration Protocol Metoclopramide HCl 10 mg 09/07/21 22:04 Metoclopramide 10 Mg/2 Ml Inj IV Q6H PRN Nausea And Vomiting Metoprolol Tartrate 25 mg 09/08/21 22:00 09/10/21 10:55 Metoprolol Tartrate 25 Mg Tab PO Not Given BID [facility] Midodrine 10 mg 09/09/21 18:00 09/10/21 18:26 Midodrine 10 Mg Tab PO 10 mg 0800,1800 [facility] Administration Morphine Sulfate 2 mg 09/07/21 22:04 Morphine 2 Mg/1 Ml Inj IV Q4H PRN Pain, Moderate (4-6) Ondansetron HCl 4 mg 09/07/21 22:04 Ondansetron 4 Mg/2 Ml Inj IV Q8H PRN Nausea And Vomiting Sodium Chloride 10 ml 09/07/21 23:00 09/10/21 10:55 Sodium Chloride 0.9% 10 Ml Flush Syringe IV 10 ml BID URSULA Administration Sodium Chloride 10 ml 09/07/21 22:04 Sodium Chloride 0.9% 10 Ml Flush Syringe IV PRN PRN LINE FLUSH Sodium Hypochlorite 1 applic 09/09/21 19:00 09/10/21 10:56 Sodium Hypochlorite, Dakin's Full Strength (0.5%) 473 Ml Topical Soln TP 1 applicatio Q12H URSULA Administration Nutrition/Malnutrition Assess - Dietary Evaluation Nutrition/Malnutrition Findings: Nutrition Notes Start: 09/08/21 15:58 Freq: Status: Active Protocol: Document 09/10/21 13:24 AR (Rec: 09/10/21 13:59 AR [id number]) Nutrition Notes Initial or Follow up Brief Note Current Diagnosis Decubitus(Pressure Ulcer), Diabetes,Malnutrition Other Pertinent Diagnosis Anemia, Hypoglycemia. Current Diet GI Soft Diet (since D 09/09), D Suppl (from D 09/10) Height 5 ft 8 in Weight 63.2 kg [place] Body Weight (kg) 70.00 BMI 21.2 Weight change and time frame 0.303 Kg body weight loss reported ion 2 days. Weight Status Appropriate Subjective/Other Information RD consulr for routine F/U on dietary advancement. Diet advanced to PO, No reports available on Pt's PO intake of meals at the time, but states that Pt is tolerating GI Soft diet very well, according to Progress notes. Pt is on Room Air, O2 saturation @ 100%, according to Physical Assessment History notes. Procedure on 09/09: Sigmoid colostomy, and extensive debridement of multiple decubitus ulcers, wel tolerated, according to Operative Report notes. No reportt available of PROGRESSIVE CARE NURSE assessment/recommendations. I will prescribe dietary supplements to compensate for poor or insufficient PO intake of meals and support wound healing processes during LOS. Percent of energy/protein needs met: Prescribed GI Soft Diet provides for energy/protein needs (2,000 Kcal/82 g) during LOS; additionally, Dietary Supplements will support wound healing processes and compensate for possible poor or insufficient PO intake of meals with 630 Kcal and 25 g of protein. #2 Nutrition Diagnosis Predicted suboptimal energy intake Diagnosis Progress(for reassessment Continues documentation) #1 Nutrition Diagnosis Increased nutrient needs ( specify in comment below) Comments: Protein to support wound healing processes. Procedure on 09/09: Sigmoid colostomy, and extensive debridement of multiple decubitus ulcers, wel tolerated, according to Operative Report notes. Diagnosis Progress(for reassessment Improved documentation) Is patient on ventilator? No Is Patient Ambulatory and/or Out of Bed No REE-([facility]-confined to bed) 1692.996 Kcal/Kg value to use for calculation 29 Approximate Energy Requirements Using 1833 kcal/Kg Calculation Used for Recommendations Kcal/kg Additional Notes Protein: 0.25-1.5 g/Kg ABW; 80 -96 g/day. Fluids: 1 ml/Kcal, or as per MD. Nutrition Intervention Change Diet Order: Continue GI Soft Diet as tolerated. Add Supplement/Snack (indicate name/kcal Start 8 fl oz Glucerna; BID. /protein ) Start 28.8 g pkt Juanjose; BID. Provides kCal: 630 Provides Protein (gm) 25 Goal #1 Support, through dietary supplementation, wound healing processes during LOS. Goal #2 Compensate, through dietary supplementation, for possible poor or insufficient PO intake of meals during LOS. Goal #3 Facilitate PO intake of meals with elemental, textural, or mechanical modification during LOS. Follow-Up By: 09/17/21 Additional Comments When pertinent, start monitoring food tolerance, %PO intake of meals, dietary supplements, and BM.
[2021-09-10] MEDS ORDERED: POTASSIUM CHLORIDE ER 20 MEQ TAB PO ONE (19:06)
[2021-09-10 19:58] LABS: Hematocrit 21.6 % (35.5-45.6); Hemoglobin 7.3 gm/dl (11.8-15.2)
[2021-09-10 20:18] LABS: Alanine Aminotransferase 11 units/L (7-56); Albumin 1.8 g/dL (3.9-5); Blood Urea Nitrogen 5 mg/dL (9-20); Calcium 7.5 mg/dL (8.4-10.2); Hemolysis Index 1
[2021-09-10 20:20] LABS: BUN/Creatinine Ratio 10
[2021-09-11] MEDS: AMPICILLIN/SULBACTA 3GM/100ML 3 GM/100 ML BAG IV SCH ×4 (01:03→17:16)
[2021-09-11] MEDS: SODIUM HYPOCHLORITE, DAKIN'S FULL STRENGTH (0.5%) 473 ML TOPICAL SOLN TP SCH ×3 (01:31→21:43)
[2021-09-11] MEDS: VANCOMYCIN/NS 1 GM/250 ML 1 GM/250 ML BAG IV SCH (08:16)
[2021-09-11] MEDS: FOLIC ACID 1 MG TAB PO SCH (09:04)
[2021-09-11] MEDS: METOPROLOL TARTRATE 25 MG TAB PO SCH ×2 (09:04→21:44)
[2021-09-11] MEDS: MIDODRINE 10 MG TAB PO SCH ×2 (09:04→17:16)
[2021-09-11] MEDS: HEPARIN 5,000 UNIT/1 ML VIAL SUB-Q SCH ×2 (09:19→21:45)
--- NOTE | 2021-09-11 10:16 | Progress Note ---
Assessment and Plan 60-year-old male with history of diabetes presents to the emergency department complaining of hypoglycemia noticed by family this morning. Patient denies any complaints, currently, however is a poor historian. Patient's daughter reports that the patient had a blood sugar of 55 at home, EMS gave the patient D50, and the blood sugar came up to 122. Patient denies any complaints, but does report that he has not been eating, well. Patient's family thinks that the sacral decubitus that is getting worse is the cause of his hypoglycemia. Sacral decubitus is extensive with exposure of sacral bone at its upper end. Extension of the ulceration to around the anus. And exposure of the rectum. Continue local wound care with Dakin's soaked gauze changing the wound twice daily and as needed.Patient is doing well status post debridement of sacral decubitus and diversion into a end sigmoid colostomy. He is tolerating a soft diet. Patient will need to return to the OR Monday or Monday for continued debridement of the sacral decubitus and possible placement of wound VAC. Subjective Date of service: 09/11/21 Patient Reports: Positive: no new complaints, flatus, bowel movement Narrative: Patient is doing well status post debridement of sacral decubitus and diversion into a end sigmoid colostomy. He is tolerating a soft diet. Patient will need to return to the OR Monday or Monday for continued debridement of the sacral decubitus and possible placement of wound VAC. Objective Vital Signs - 12hr 09/10/21 09/10/21 09/11/21 22:17 23:00 05:40 Temperature 99.8 F H 98.3 F Pulse Rate 87 74 Respiratory 20 18 Rate Blood Pressure 134/77 95/54 O2 Sat by Pulse 100 100 100 Oximetry - Labs 09/10/21 19:47 09/10/21 19:47 Diabetes panel 09/10/21 09/11/21 Range/Units 19:47 04:40 Sodium 135 L (137-145) mmol/L Potassium 3.7 (3.6-5.0) mmol/L Chloride 101.4 (98-107) mmol/L Carbon Dioxide 25 (22-30) mmol/L BUN 5 L (9-20) mg/dL Creatinine 0.5 L (0.8-1.3) mg/dL Glucose 220 H (75-100) mg/dL Hemoglobin A1c 14.9 H (4-6) % Calcium 7.5 L (8.4-10.2) mg/dL AST 23 (5-40) units/L ALT 11 (7-56) units/L Alkaline Phosphatase 116 (35-129) units/L Total Protein 5.3 L D (6.3-8.2) g/dL Albumin 1.8 L (3.9-5) g/dL Calcium panel 09/10/21 Range/Units 19:47 Calcium 7.5 L (8.4-10.2) mg/dL Albumin 1.8 L (3.9-5) g/dL Pituitary panel 09/10/21 Range/Units 19:47 Sodium 135 L (137-145) mmol/L Potassium 3.7 (3.6-5.0) mmol/L Chloride 101.4 (98-107) mmol/L Carbon Dioxide 25 (22-30) mmol/L BUN 5 L (9-20) mg/dL Creatinine 0.5 L (0.8-1.3) mg/dL Glucose 220 H (75-100) mg/dL Calcium 7.5 L (8.4-10.2) mg/dL Adrenal panel 09/10/21 Range/Units 19:47 Sodium 135 L (137-145) mmol/L Potassium 3.7 (3.6-5.0) mmol/L Chloride 101.4 (98-107) mmol/L Carbon Dioxide 25 (22-30) mmol/L BUN 5 L (9-20) mg/dL Creatinine 0.5 L (0.8-1.3) mg/dL Glucose 220 H (75-100) mg/dL Calcium 7.5 L (8.4-10.2) mg/dL Total Bilirubin 0.20 (0.1-1.2) mg/dL AST 23 (5-40) units/L ALT 11 (7-56) units/L Alkaline Phosphatase 116 (35-129) units/L Total Protein 5.3 L D (6.3-8.2) g/dL Albumin 1.8 L (3.9-5) g/dL
[2021-09-11] MEDS: INSULIN LISPRO 100 UNIT/ML SUB-Q SCH ×3 (11:17→21:53)
[2021-09-11] MEDS: VANCOMYCIN 750 MG in SODIUM CHLORIDE 0.9% 250ML 250 ML IV SCH (12:15)
--- NOTE | 2021-09-11 19:28 | Progress Note ---
Assessment and Plan Assessment and plan: -- Sacral decubitus ulcer, stage IV Severe sacral decubitus ulcer about 12 cm Star[place] VIII centimeters X depth of about 2 cm with eschar formation over half of the decubitus ulcer Evaluated by surgeon patient underwent surgical procedure 09/09/2021 Large sacral decubitus ulcer, stage IV Evaluated by surgeon Dr. Titus s/p surgical procedure 09/09/21 s/pPatient status post laparoscopic-assisted diversion with end sigmoid colostomy and extensive debridement of sacral decubitus. Ostomy is functioning, patient is tolerating soft diet Postop care per surgeon, continue wound care, antibiotics, dietary supplements -- Hypoglycemia/resolved Persistent hypoglycemia IV D5W with normal saline Probably due to poor oral intake D50 W and glucagon as necessary Etiology of hypoglycemia unclear Poor p.o. intake --Hyponatremia Mild improvement Na improved from 128-132 this morning Continue normal saline closely monitor electrolytes --Anemia[dropped from 10.2-8.6 since admission] Closely monitor H&H, transfuse as needed No external evidence of bleeding, stool for occult blood Closely monitor -- Severe protein calorie malnutrition With hypoalbuminemia, nutrition supplements Nutrition consult and supportive care --Severe hyper anemia; albumin2.2 nutrition supplements, nutrition consult Supportive care -- DVT prophylaxis Subcu heparin and GI prophylaxis -- Advance care planning Could not be done because of logistics Plan of care reviewed with the patient and his nurse 09/08;I also discussed extensively with surgeon Dr. Titus Is planning surgical debridement tomorrow if patient is stable N.p.o. from midnight 09/09; patient is n.p.o. status, scheduled for surgical debridement Surgeon requested echocardiogram, echo ordered We will also add PT, INR and PTT 09/10; postop care per surgical team, patient tolerating soft diet Mild hypokalemia, replenished with KCl and follow electrolytes Surgeon is planning additional sacral wound debridement and wound VAC on Monday, 09/14/1909/11; patient comfortable, no new complaints Surgery following, planning additional wound debridement wound VAC placement on 09/13/2021 History Interval history: I have seen and examined the patient at the bedside Patient's chart and medications reviewed Patient complains of some pain at the surgical site On pain medications Vital signs noted Hospitalist Physical - Constitutional Vitals: Temp Pulse Resp BP Pulse Ox 97.7 F 55 L 18 114/61 100 09/11/21 17:37 09/11/21 17:37 09/11/21 17:37 09/11/21 17:37 09/11/21 16:21 General appearance: Present: no acute distress, well-nourished - EENT Eyes: Present: PERRL, EOM intact - Neck Neck: Present: supple, normal ROM - Respiratory Respiratory effort: normal Respiratory: bilateral: diminished, negative: rales, rhonchi, wheezing - Cardiovascular Rhythm: regular Heart Sounds: Present: S1 & S2 - Extremities Extremities: no ischemia, No edema Peripheral Pulses: abnormal - Abdominal General gastrointestinal: soft, non-tender, non-distended, normal bowel sounds - Integumentary Integumentary: Present: clear, warm - Psychiatric Psychiatric: appropriate mood/affect, agitated - Neurologic Neurologic: CNII-XII intact, moves all extremities HEART Score - HEART Score Troponin: Troponin T 0.013 ng/mL (0.00-0.029) 09/07/21 13:13 Results - Labs CBC & Chem 7: 09/10/21 19:47 09/10/21 19:47 Labs: Laboratory Last Values WBC 8.3 K/mm3 (4.5-11.0) 09/10/21 05:59 RBC 2.65 M/mm3 (3.65-5.03) L 09/10/21 05:59 Hgb 7.3 gm/dl (11.8-15.2) L 09/10/21 19:47 Hct 21.6 % (35.5-45.6) L 09/10/21 19:47 MCV 87 fl (84-94) 09/10/21 05:59 MCH 29 pg (28-32) 09/10/21 05:59 MCHC 33 % (32-34) 09/10/21 05:59 RDW 14.2 % (13.2-15.2) 09/10/21 05:59 Plt Count 578 K/mm3 (140-440) H 09/10/21 05:59 Lymph % (Auto) 12.6 % (13.4-35.0) L 09/10/21 05:59 Whitman % (Auto) 3.5 % (0.0-7.3) 09/10/21 05:59 Eos % (Auto) 1.4 % (0.0-4.3) 09/10/21 05:59 Baso % (Auto) 0.2 % (0.0-1.8) 09/10/21 05:59 Lymph # (Auto) 1.0 K/mm3 (1.2-5.4) L 09/10/21 05:59 Whitman # (Auto) 0.3 K/mm3 (0.0-0.8) 09/10/21 05:59 Eos # (Auto) 0.1 K/mm3 (0.0-0.4) 09/10/21 05:59 Baso # (Auto) 0.0 K/mm3 (0.0-0.1) 09/10/21 05:59 Add Manual Diff Complete 09/08/21 04:58 Total Counted 100 09/08/21 04:58 Seg Neutrophils % 82.3 % (40.0-70.0) H 09/10/21 05:59 Seg Neuts % (Manual) 95.0 % (40.0-70.0) H 09/08/21 04:58 Band Neutrophils % 1.0 % 09/08/21 04:58 Lymphocytes % (Manual) 3.0 % (13.4-35.0) L 09/08/21 04:58 Reactive Lymphs % (Man) 0 % 09/08/21 04:58 Monocytes % (Manual) 1.0 % (0.0-7.3) 09/08/21 04:58 Eosinophils % (Manual) 0 % (0.0-4.3) 09/08/21 04:58 Basophils % (Manual) 0 % (0.0-1.8) 09/08/21 04:58 Metamyelocytes % 0 % 09/08/21 04:58 Myelocytes % 0 % 09/08/21 04:58 Promyelocytes % 0 % 09/08/21 04:58 Blast Cells % 0 % 09/08/21 04:58 Nucleated RBC % Not Reportable 09/08/21 04:58 Seg Neutrophils # 6.8 K/mm3 (1.8-7.7) 09/10/21 05:59 Seg Neutrophils # Man 15.4 K/mm3 (1.8-7.7) H 09/08/21 04:58 Band Neutrophils # 0.2 K/mm3 09/08/21 04:58 Lymphocytes # (Manual) 0.5 K/mm3 (1.2-5.4) L 09/08/21 04:58 Abs React Lymphs (Man) 0.0 K/mm3 09/08/21 04:58 Monocytes # (Manual) 0.2 K/mm3 (0.0-0.8) 09/08/21 04:58 Eosinophils # (Manual) 0.0 K/mm3 (0.0-0.4) 09/08/21 04:58 Basophils # (Manual) 0.0 K/mm3 (0.0-0.1) 09/08/21 04:58 Metamyelocytes # 0.0 K/mm3 09/08/21 04:58 Myelocytes # 0.0 K/mm3 09/08/21 04:58 Promyelocytes # 0.0 K/mm3 09/08/21 04:58 Blast Cells # 0.0 K/mm3 09/08/21 04:58 WBC Morphology Not Reportable 09/08/21 04:58 Hypersegmented Neuts Not Reportable 09/08/21 04:58 Hyposegmented Neuts Not Reportable 09/08/21 04:58 Hypogranular Neuts Not Reportable 09/08/21 04:58 Smudge Cells Not Reportable 09/08/21 04:58 Toxic Granulation Not Reportable 09/08/21 04:58 Toxic Vacuolation Not Reportable 09/08/21 04:58 Dohle Bodies Not Reportable 09/08/21 04:58 Pelger-Huet Anomaly Not Reportable 09/08/21 04:58 Robert Rods Not Reportable 09/08/21 04:58 Platelet Estimate Consistent w auto 09/08/21 04:58 Clumped Platelets Not Reportable 09/08/21 04:58 Plt Clumps, EDTA Not Reportable 09/08/21 04:58 Large Platelets Not Reportable 09/08/21 04:58 Giant Platelets Not Reportable 09/08/21 04:58 Platelet Satelliting Not Reportable 09/08/21 04:58 Plt Morphology Comment Not Reportable 09/08/21 04:58 RBC Morphology Normal 09/08/21 04:58 Dimorphic RBCs Not Reportable 09/08/21 04:58 Polychromasia Not Reportable 09/08/21 04:58 Hypochromasia Not Reportable 09/08/21 04:58 Poikilocytosis Not Reportable 09/08/21 04:58 Anisocytosis Not Reportable 09/08/21 04:58 Microcytosis Not Reportable 09/08/21 04:58 Macrocytosis Not Reportable 09/08/21 04:58 Spherocytes Not Reportable 09/08/21 04:58 Pappenheimer Bodies Not Reportable 09/08/21 04:58 Sickle Cells Not Reportable 09/08/21 04:58 Target Cells Not Reportable 09/08/21 04:58 Tear Drop Cells Not Reportable 09/08/21 04:58 Ovalocytes Not Reportable 09/08/21 04:58 Helmet Cells Not Reportable 09/08/21 04:58 Sanders-Rhododendron Bodies Not Reportable 09/08/21 04:58 [place] Rings Not Reportable 09/08/21 04:58 Humphrey Cells Not Reportable 09/08/21 04:58 Bite Cells Not Reportable 09/08/21 04:58 Crenated Cell Not Reportable 09/08/21 04:58 Elliptocytes Not Reportable 09/08/21 04:58 Acanthocytes (Spur) Not Reportable 09/08/21 04:58 Rouleaux Not Reportable 09/08/21 04:58 Hemoglobin C Crystals Not Reportable 09/08/21 04:58 Schistocytes Not Reportable 09/08/21 04:58 Malaria parasites Not Reportable 09/08/21 04:58 Ludwig Bodies Not Reportable 09/08/21 04:58 Hem Pathologist Commnt No 09/08/21 04:58 PT 13.7 Sec. (12.2-14.9) 09/09/21 10:29 INR 0.95 (0.87-1.13) 09/09/21 10:29 APTT 45.4 Sec. (24.2-36.6) H 09/09/21 10:29 Sodium 135 mmol/L (137-145) L 09/10/21 19:47 Potassium 3.7 mmol/L (3.6-5.0) 09/10/21 19:47 Chloride 101.4 mmol/L (98-107) 09/10/21 19:47 Carbon Dioxide 25 mmol/L (22-30) 09/10/21 19:47 Anion Gap 12 mmol/L 09/10/21 19:47 BUN 5 mg/dL (9-20) L 09/10/21 19:47 Creatinine 0.5 mg/dL (0.8-1.3) L 09/10/21 19:47 Estimated GFR > 60 ml/min 09/10/21 19:47 BUN/Creatinine Ratio 10 % 09/10/21 19:47 Glucose 220 mg/dL (75-100) H 09/10/21 19:47 POC Glucose 247 mg/dL (70-105) H 09/11/21 16:20 Hemoglobin A1c 14.9 % (4-6) H 09/11/21 04:40 Lactic Acid 1.40 mmol/L (0.7-2.0) 09/07/21 15:23 Calcium 7.5 mg/dL (8.4-10.2) L 09/10/21 19:47 Magnesium 2.20 mg/dL (1.7-2.3) 09/10/21 19:47 Total Bilirubin 0.20 mg/dL (0.1-1.2) 09/10/21 19:47 AST 23 units/L (5-40) 09/10/21 19:47 ALT 11 units/L (7-56) 09/10/21 19:47 Alkaline Phosphatase 116 units/L (35-129) 09/10/21 19:47 Troponin T 0.013 ng/mL (0.00-0.029) 09/07/21 13:13 Total Protein 5.3 g/dL (6.3-8.2) L D 09/10/21 19:47 Albumin 1.8 g/dL (3.9-5) L 09/10/21 19:47 Albumin/Globulin Ratio 0.5 % 09/10/21 19:47 Urine Color Yellow (Yellow) 09/08/21 10:40 Urine Turbidity Clear (Clear) 09/08/21 10:40 Urine pH 6.0 (5.0-7.0) 09/08/21 10:40 Ur Specific [place] 1.015 (1.003-1.030) 09/08/21 10:40 Urine Protein <30 mg dl mg/dL (Negative) 09/08/21 10:40 Urine Glucose (UA) Negative mg/dL (Negative) 09/08/21 10:40 Urine Ketones Negative mg/dL (Negative) 09/08/21 10:40 Urine Blood Negative (Negative) 09/08/21 10:40 Urine Nitrite Positive (Negative) 09/08/21 10:40 Ur Reducing Substances Not Reportable 09/08/21 10:40 Urine Bilirubin Negative (Negative) 09/08/21 10:40 Urine Ictotest Not Reportable 09/08/21 10:40 Urine Urobilinogen < 2.0 mg/dL (<2.0) 09/08/21 10:40 Ur Leukocyte Esterase Small (Negative) 09/08/21 10:40 Urine WBC (Auto) 62.0 /HPF (0.0-6.0) H 09/08/21 10:40 Urine RBC (Auto) 11.0 /HPF (0.0-6.0) 09/08/21 10:40 U Epithel Cells (Auto) 5.0 /HPF (0-13.0) 09/08/21 10:40 Urine Bacteria (Auto) 4+ /HPF (Negative) 09/08/21 10:40 Hyaline Casts 3 /LPF 09/08/21 10:40 Vancomycin Trough 25.2 ug/mL (5.0-20.0) H 09/10/21 13:25 Blood Type A POSITIVE 09/07/21 13:55 Antibody Screen Negative 09/07/21 13:55 Microbiology: Microbiology 09/09/21 10:15 Wound - Deep Wound Culture - Preliminary Klebsiella Pneumoniae 09/09/21 Unknown Other (Please Specify:) - Other Surgical Culture - Preliminary Neville/IV: Voiding Method Indwelling Catheter Active Medications - Current Medications Current Medications: Generic Name Dose Route Start Last Admin Trade Name Freq PRN Reason Stop Dose Admin Acetaminophen 650 mg 09/07/21 22:04 Acetaminophen 325 Mg Tab PO Q4H PRN Pain MILD(1-3)/Fever >100.5/HORNER Atorvastatin Calcium 40 mg 09/08/21 22:00 09/10/21 21:25 Atorvastatin 40 Mg Tab PO 40 mg QHS URSULA Administration Folic Acid 1 mg 09/09/21 10:00 09/11/21 09:04 Folic Acid 1 Mg Tab PO 1 mg QDAY URSULA Administration Heparin Sodium (Porcine) 5,000 unit 09/08/21 10:00 09/11/21 09:19 Heparin 5,000 Unit/1 Ml Vial SUB-Q 5,000 unit Q12HR URSULA Administration Dextrose/Sodium Chloride 1,000 mls @ 100 mls/hr 09/07/21 23:00 09/09/21 18:17 D5ns IV 100 mls/hr DIRECT URSULA Administration Ampicillin Sodium/Sulbactam Sodium 3 gm in 100 mls @ 100 mls/hr 09/08/21 00:00 09/11/21 17:16 Unasyn/Ns 3 Gm/100 Ml IV 100 mls/hr Q6HR URSULA Administration Protocol Vancomycin HCl 750 mg/ Sodium 265 mls @ 166.667 mls/hr 09/11/21 12:00 09/11/21 12:15 Chloride IV 166.667 mls/hr Q12H URSULA Administration Insulin Human Lispro 0 unit 09/08/21 07:30 09/11/21 12:31 Insulin Lispro 100 Unit/Ml SUB-Q Not Given ACHS [facility] Protocol Metoclopramide HCl 10 mg 09/07/21 22:04 Metoclopramide 10 Mg/2 Ml Inj IV Q6H PRN Nausea And Vomiting Metoprolol Tartrate 25 mg 09/08/21 22:00 09/11/21 09:04 Metoprolol Tartrate 25 Mg Tab PO 25 mg BID URSULA Administration Midodrine 10 mg 09/09/21 18:00 09/11/21 17:16 Midodrine 10 Mg Tab PO 10 mg 0800,1800 URSULA Administration Morphine Sulfate 2 mg 09/07/21 22:04 Morphine 2 Mg/1 Ml Inj IV Q4H PRN Pain, Moderate (4-6) Ondansetron HCl 4 mg 09/07/21 22:04 Ondansetron 4 Mg/2 Ml Inj IV Q8H PRN Nausea And Vomiting Sodium Chloride 10 ml 09/07/21 23:00 09/11/21 09:05 Sodium Chloride 0.9% 10 Ml Flush Syringe IV 10 ml BID URSULA Administration Sodium Chloride 10 ml 09/07/21 22:04 Sodium Chloride 0.9% 10 Ml Flush Syringe IV PRN PRN LINE FLUSH Sodium Hypochlorite 1 applic 09/09/21 19:00 09/11/21 09:04 Sodium Hypochlorite, Dakin's Full Strength (0.5%) 473 Ml Topical Soln TP 1 applicatio Q12H [facility] Administration Nutrition/Malnutrition Assess - Dietary Evaluation Nutrition/Malnutrition Findings: Nutrition Notes Start: 09/08/21 15:58 Freq: Status: Active Protocol: Document 09/10/21 13:24 AR (Rec: 09/10/21 13:59 AR [id number]) Nutrition Notes Initial or Follow up Brief Note Current Diagnosis Decubitus(Pressure Ulcer), Diabetes,Malnutrition Other Pertinent Diagnosis Anemia, Hypoglycemia. Current Diet GI Soft Diet (since D 09/09), D Suppl (from D 09/10) Height 5 ft 8 in Weight 63.2 kg [place] Body Weight (kg) 70.00 BMI 21.2 Weight change and time frame 0.303 Kg body weight loss reported ion 2 days. Weight Status Appropriate Subjective/Other Information RD consulr for routine F/U on dietary advancement. Diet advanced to PO, No reports available on Pt's PO intake of meals at the time, but states that Pt is tolerating GI Soft diet very well, according to Progress notes. Pt is on Room Air, O2 saturation @ 100%, according to Physical Assessment History notes. Procedure on 09/09: Sigmoid colostomy, and extensive debridement of multiple decubitus ulcers, wel tolerated, according to Operative Report notes. No reportt available of MAIL CARRIER assessment/recommendations. I will prescribe dietary supplements to compensate for poor or insufficient PO intake of meals and support wound healing processes during LOS. Percent of energy/protein needs met: Prescribed GI Soft Diet provides for energy/protein needs (2,000 Kcal/82 g) during LOS; additionally, Dietary Supplements will support wound healing processes and compensate for possible poor or insufficient PO intake of meals with 630 Kcal and 25 g of protein. #2 Nutrition Diagnosis Predicted suboptimal energy intake Diagnosis Progress(for reassessment Continues documentation) #1 Nutrition Diagnosis Increased nutrient needs ( specify in comment below) Comments: Protein to support wound healing processes. Procedure on 09/09: Sigmoid colostomy, and extensive debridement of multiple decubitus ulcers, wel tolerated, according to Operative Report notes. Diagnosis Progress(for reassessment Improved documentation) Is patient on ventilator? No Is Patient Ambulatory and/or Out of Bed No REE-([facility]-confined to bed) 1692.996 Kcal/Kg value to use for calculation 29 Approximate Energy Requirements Using 1833 kcal/Kg Calculation Used for Recommendations Kcal/kg Additional Notes Protein: 0.25-1.5 g/Kg ABW; 80 -96 g/day. Fluids: 1 ml/Kcal, or as per MD. Nutrition Intervention Change Diet Order: Continue GI Soft Diet as tolerated. Add Supplement/Snack (indicate name/kcal Start 8 fl oz Glucerna; BID. /protein ) Start 28.8 g pkt Juanjose; BID. Provides kCal: 630 Provides Protein (gm) 25 Goal #1 Support, through dietary supplementation, wound healing processes during LOS. Goal #2 Compensate, through dietary supplementation, for possible poor or insufficient PO intake of meals during LOS. Goal #3 Facilitate PO intake of meals with elemental, textural, or mechanical modification during LOS. Follow-Up By: 09/17/21 Additional Comments When pertinent, start monitoring food tolerance, %PO intake of meals, dietary supplements, and BM.
[2021-09-11] MEDS: D5W/0.9% NACL 1,000 ML IV SCH (22:06)
[2021-09-12] MEDS: AMPICILLIN/SULBACTA 3GM/100ML 3 GM/100 ML BAG IV SCH ×2 (00:01→05:56)
[2021-09-12] MEDS: VANCOMYCIN 750 MG in SODIUM CHLORIDE 0.9% 250ML 250 ML IV SCH (00:04)
--- NOTE | 2021-09-12 07:09 | Progress Note ---
Assessment and Plan 60-year-old male with history of diabetes presents to the emergency department complaining of hypoglycemia noticed by family this morning. Patient denies any complaints, currently, however is a poor historian. Patient's daughter reports that the patient had a blood sugar of 55 at home, EMS gave the patient D50, and the blood sugar came up to 122. Patient denies any complaints, but does report that he has not been eating, well. Patient's family thinks that the sacral decubitus that is getting worse is the cause of his hypoglycemia. Patient with Klebsiella pneumonia growing from his sacral wound. Plan to return to the OR if time is available tomorrow for debridement and reassessment of the wound with possible wound VAC placement. N.p.o. post midnight tonight. We will try to contact family for consent. He is tolerating a soft diet. Patient will need to return to the OR Monday or Monday for continued debridement of the sacral decubitus and possible placement of wound VAC. Subjective Patient Reports: Positive: no new complaints, feels better Narrative: Patient with Klebsiella pneumonia growing from his sacral wound. Plan to return to the OR if time is available tomorrow for debridement and reassessment of the wound with possible wound VAC placement. N.p.o. past midnight tonight. We will try to contact family for consent. Objective Vital Signs - 12hr 09/11/21 09/11/21 09/11/21 21:25 21:44 23:00 Temperature 99.3 F Pulse Rate 81 81 Respiratory 18 Rate Blood Pressure 102/52 102/54 O2 Sat by Pulse 100 100 Oximetry 09/12/21 04:01 Temperature 97.8 F Pulse Rate 72 Respiratory 18 Rate Blood Pressure 100/51 O2 Sat by Pulse 66 L Oximetry - Labs 09/10/21 19:47 09/10/21 19:47
[2021-09-12] MEDS: MIDODRINE 10 MG TAB PO SCH ×2 (09:52→18:16)
[2021-09-12] MEDS: HEPARIN 5,000 UNIT/1 ML VIAL SUB-Q SCH ×2 (09:52→22:15)
[2021-09-12] MEDS: SODIUM HYPOCHLORITE, DAKIN'S FULL STRENGTH (0.5%) 473 ML TOPICAL SOLN TP SCH ×2 (09:53→22:14)
[2021-09-12] MEDS: FOLIC ACID 1 MG TAB PO SCH (09:53)
[2021-09-12] MEDS: INSULIN LISPRO 100 UNIT/ML SUB-Q SCH ×4 (09:54→22:37)
[2021-09-12] MEDS: METOPROLOL TARTRATE 25 MG TAB PO SCH ×2 (09:54→22:14)
--- NOTE | 2021-09-12 10:38 | Progress Note ---
Assessment and Plan Assessment and plan: --wound cultures Klebsiella pneumonia; sensitive to imipenem, contact isolation ID consult -- Sacral decubitus ulcer, stage IV- Severe sacral decubitus ulcer about 12 cm [place] VIII centimeters X depth of about 2 cm with eschar formation over half of the decubitus ulcer Evaluated by surgeon patient underwent surgical procedure 09/09/2021 Large sacral decubitus ulcer, stage IV Evaluated by surgeon Dr. Titus s/p surgical procedure 09/09/21 s/pPatient status post laparoscopic-assisted diversion with end sigmoid colostomy and extensive debridement of sacral decubitus. Ostomy is functioning, patient is tolerating soft diet Postop care per surgeon, continue wound care, antibiotics, dietary supplements -- Hypoglycemia/resolved Persistent hypoglycemia IV D5W with normal saline Probably due to poor oral intake D50 W and glucagon as necessary Etiology of hypoglycemia unclear Poor p.o. intake --Hyponatremia Mild improvement Na improved from 128-132 this morning Continue normal saline closely monitor electrolytes --Anemia[dropped from 10.2-8.6 since admission] Closely monitor H&H, transfuse as needed No external evidence of bleeding, stool for occult blood Closely monitor -- Severe protein calorie malnutrition With hypoalbuminemia, nutrition supplements Nutrition consult and supportive care --Severe hyper anemia; albumin2.2 nutrition supplements, nutrition consult Supportive care -- DVT prophylaxis Subcu heparin and GI prophylaxis -- Advance care planning Could not be done because of logistics Plan of care reviewed with the patient and his nurse 09/08;I also discussed extensively with surgeon Dr. Titus Is planning surgical debridement tomorrow if patient is stable N.p.o. from midnight 09/09; patient is n.p.o. status, scheduled for surgical debridement Surgeon requested echocardiogram, echo ordered We will also add PT, INR and PTT 09/10; postop care per surgical team, patient tolerating soft diet Mild hypokalemia, replenished with KCl and follow electrolytes Surgeon is planning additional sacral wound debridement and wound VAC on Monday, 09/14/1909/11; patient comfortable, no new complaints Surgery following, planning additional wound debridement wound VAC placement on 09/13/202109/12; wound cultures positive for Klebsiella pneumonia sensitive to imipenem Antibiotics changed to imipenem, ID consulted Patient scheduled for surgical debridement and possible wound VAC placement procedure tomorrow, Patient is n.p.o. from midnight History Interval history: I have Seen and examined the patient at the bedside Patient's chart and medications reviewed Patient feels slightly better Complains of some pain at the surgical site Afebrile, vital signs noted Hospitalist Physical - Constitutional Vitals: Temp Pulse Resp BP Pulse Ox 97.8 F 72 18 100/51 66 L 09/12/21 04:01 09/12/21 04:01 09/12/21 04:01 09/12/21 04:01 09/12/21 04:01 General appearance: Present: no acute distress, well-nourished - EENT Eyes: Present: PERRL, EOM intact - Neck Neck: Present: supple, normal ROM - Respiratory Respiratory effort: normal, labored Respiratory: bilateral: diminished, negative: rales, rhonchi, wheezing - Cardiovascular Rhythm: regular Heart Sounds: Present: S1 & S2 - Extremities Extremities: no ischemia, pulses intact Extremity abnormal: edema - Abdominal General gastrointestinal: soft, non-tender, non-distended - Integumentary Integumentary: Present: clear, warm - Psychiatric Psychiatric: appropriate mood/affect, cooperative - Neurologic Neurologic: CNII-XII intact, moves all extremities HEART Score - HEART Score Troponin: Troponin T 0.013 ng/mL (0.00-0.029) 09/07/21 13:13 Results - Labs CBC & Chem 7: 09/13/21 Unknown 09/10/21 19:47 Labs: Laboratory Last Values WBC 8.3 K/mm3 (4.5-11.0) 09/10/21 05:59 RBC 2.65 M/mm3 (3.65-5.03) L 09/10/21 05:59 Hgb 7.3 gm/dl (11.8-15.2) L 09/10/21 19:47 Hct 21.6 % (35.5-45.6) L 09/10/21 19:47 MCV 87 fl (84-94) 09/10/21 05:59 MCH 29 pg (28-32) 09/10/21 05:59 MCHC 33 % (32-34) 09/10/21 05:59 RDW 14.2 % (13.2-15.2) 09/10/21 05:59 Plt Count 578 K/mm3 (140-440) H 09/10/21 05:59 Lymph % (Auto) 12.6 % (13.4-35.0) L 09/10/21 05:59 [place] % (Auto) 3.5 % (0.0-7.3) 09/10/21 05:59 Eos % (Auto) 1.4 % (0.0-4.3) 09/10/21 05:59 Baso % (Auto) 0.2 % (0.0-1.8) 09/10/21 05:59 Lymph # (Auto) 1.0 K/mm3 (1.2-5.4) L 09/10/21 05:59 Gentry # (Auto) 0.3 K/mm3 (0.0-0.8) 09/10/21 05:59 Eos # (Auto) 0.1 K/mm3 (0.0-0.4) 09/10/21 05:59 Baso # (Auto) 0.0 K/mm3 (0.0-0.1) 09/10/21 05:59 Add Manual Diff Complete 09/08/21 04:58 Total Counted 100 09/08/21 04:58 Seg Neutrophils % 82.3 % (40.0-70.0) H 09/10/21 05:59 Seg Neuts % (Manual) 95.0 % (40.0-70.0) H 09/08/21 04:58 Band Neutrophils % 1.0 % 09/08/21 04:58 Lymphocytes % (Manual) 3.0 % (13.4-35.0) L 09/08/21 04:58 Reactive Lymphs % (Man) 0 % 09/08/21 04:58 Monocytes % (Manual) 1.0 % (0.0-7.3) 09/08/21 04:58 Eosinophils % (Manual) 0 % (0.0-4.3) 09/08/21 04:58 Basophils % (Manual) 0 % (0.0-1.8) 09/08/21 04:58 Metamyelocytes % 0 % 09/08/21 04:58 Myelocytes % 0 % 09/08/21 04:58 Promyelocytes % 0 % 09/08/21 04:58 Blast Cells % 0 % 09/08/21 04:58 Nucleated RBC % Not Reportable 09/08/21 04:58 Seg Neutrophils # 6.8 K/mm3 (1.8-7.7) 09/10/21 05:59 Seg Neutrophils # Man 15.4 K/mm3 (1.8-7.7) H 09/08/21 04:58 Band Neutrophils # 0.2 K/mm3 09/08/21 04:58 Lymphocytes # (Manual) 0.5 K/mm3 (1.2-5.4) L 09/08/21 04:58 Abs React Lymphs (Man) 0.0 K/mm3 09/08/21 04:58 Monocytes # (Manual) 0.2 K/mm3 (0.0-0.8) 09/08/21 04:58 Eosinophils # (Manual) 0.0 K/mm3 (0.0-0.4) 09/08/21 04:58 Basophils # (Manual) 0.0 K/mm3 (0.0-0.1) 09/08/21 04:58 Metamyelocytes # 0.0 K/mm3 09/08/21 04:58 Myelocytes # 0.0 K/mm3 09/08/21 04:58 Promyelocytes # 0.0 K/mm3 09/08/21 04:58 Blast Cells # 0.0 K/mm3 09/08/21 04:58 WBC Morphology Not Reportable 09/08/21 04:58 Hypersegmented Neuts Not Reportable 09/08/21 04:58 Hyposegmented Neuts Not Reportable 09/08/21 04:58 Hypogranular Neuts Not Reportable 09/08/21 04:58 Smudge Cells Not Reportable 09/08/21 04:58 Toxic Granulation Not Reportable 09/08/21 04:58 Toxic Vacuolation Not Reportable 09/08/21 04:58 Dohle Bodies Not Reportable 09/08/21 04:58 Pelger-Huet Anomaly Not Reportable 09/08/21 04:58 Robert Rods Not Reportable 09/08/21 04:58 Platelet Estimate Consistent w auto 09/08/21 04:58 Clumped Platelets Not Reportable 09/08/21 04:58 Plt Clumps, EDTA Not Reportable 09/08/21 04:58 Large Platelets Not Reportable 09/08/21 04:58 Giant Platelets Not Reportable 09/08/21 04:58 Platelet Satelliting Not Reportable 09/08/21 04:58 Plt Morphology Comment Not Reportable 09/08/21 04:58 RBC Morphology Normal 09/08/21 04:58 Dimorphic RBCs Not Reportable 09/08/21 04:58 Polychromasia Not Reportable 09/08/21 04:58 Hypochromasia Not Reportable 09/08/21 04:58 Poikilocytosis Not Reportable 09/08/21 04:58 Anisocytosis Not Reportable 09/08/21 04:58 Microcytosis Not Reportable 09/08/21 04:58 Macrocytosis Not Reportable 09/08/21 04:58 Spherocytes Not Reportable 09/08/21 04:58 Pappenheimer Bodies Not Reportable 09/08/21 04:58 Sickle Cells Not Reportable 09/08/21 04:58 Target Cells Not Reportable 09/08/21 04:58 Tear Drop Cells Not Reportable 09/08/21 04:58 Ovalocytes Not Reportable 09/08/21 04:58 Helmet Cells Not Reportable 09/08/21 04:58 [place] Bodies Not Reportable 09/08/21 04:58 Liberty Rings Not Reportable 09/08/21 04:58 Humphrey Cells Not Reportable 09/08/21 04:58 Bite Cells Not Reportable 09/08/21 04:58 Crenated Cell Not Reportable 09/08/21 04:58 Elliptocytes Not Reportable 09/08/21 04:58 Acanthocytes (Spur) Not Reportable 09/08/21 04:58 Rouleaux Not Reportable 09/08/21 04:58 Hemoglobin C Crystals Not Reportable 09/08/21 04:58 Schistocytes Not Reportable 09/08/21 04:58 Malaria parasites Not Reportable 09/08/21 04:58 Ludwig Bodies Not Reportable 09/08/21 04:58 Hem Pathologist Commnt No 09/08/21 04:58 PT 13.7 Sec. (12.2-14.9) 09/09/21 10:29 INR 0.95 (0.87-1.13) 09/09/21 10:29 APTT 45.4 Sec. (24.2-36.6) H 09/09/21 10:29 Sodium 135 mmol/L (137-145) L 09/10/21 19:47 Potassium 3.7 mmol/L (3.6-5.0) 09/10/21 19:47 Chloride 101.4 mmol/L (98-107) 09/10/21 19:47 Carbon Dioxide 25 mmol/L (22-30) 09/10/21 19:47 Anion Gap 12 mmol/L 09/10/21 19:47 BUN 5 mg/dL (9-20) L 09/10/21 19:47 Creatinine 0.5 mg/dL (0.8-1.3) L 09/10/21 19:47 Estimated GFR > 60 ml/min 09/10/21 19:47 BUN/Creatinine Ratio 10 % 09/10/21 19:47 Glucose 220 mg/dL (75-100) H 09/10/21 19:47 POC Glucose 152 mg/dL (70-105) H 09/12/21 07:42 Hemoglobin A1c 14.9 % (4-6) H 09/11/21 04:40 Lactic Acid 1.40 mmol/L (0.7-2.0) 09/07/21 15:23 Calcium 7.5 mg/dL (8.4-10.2) L 09/10/21 19:47 Magnesium 2.20 mg/dL (1.7-2.3) 09/10/21 19:47 Total Bilirubin 0.20 mg/dL (0.1-1.2) 09/10/21 19:47 AST 23 units/L (5-40) 09/10/21 19:47 ALT 11 units/L (7-56) 09/10/21 19:47 Alkaline Phosphatase 116 units/L (35-129) 09/10/21 19:47 Troponin T 0.013 ng/mL (0.00-0.029) 09/07/21 13:13 Total Protein 5.3 g/dL (6.3-8.2) L D 09/10/21 19:47 Albumin 1.8 g/dL (3.9-5) L 09/10/21 19:47 Albumin/Globulin Ratio 0.5 % 09/10/21 19:47 Urine Color Yellow (Yellow) 09/08/21 10:40 Urine Turbidity Clear (Clear) 09/08/21 10:40 Urine pH 6.0 (5.0-7.0) 09/08/21 10:40 Ur Specific Leroy 1.015 (1.003-1.030) 09/08/21 10:40 Urine Protein <30 mg dl mg/dL (Negative) 09/08/21 10:40 Urine Glucose (UA) Negative mg/dL (Negative) 09/08/21 10:40 Urine Ketones Negative mg/dL (Negative) 09/08/21 10:40 Urine Blood Negative (Negative) 09/08/21 10:40 Urine Nitrite Positive (Negative) 09/08/21 10:40 Ur Reducing Substances Not Reportable 09/08/21 10:40 Urine Bilirubin Negative (Negative) 09/08/21 10:40 Urine Ictotest Not Reportable 09/08/21 10:40 Urine Urobilinogen < 2.0 mg/dL (<2.0) 09/08/21 10:40 Ur Leukocyte Esterase Small (Negative) 09/08/21 10:40 Urine WBC (Auto) 62.0 /HPF (0.0-6.0) H 09/08/21 10:40 Urine RBC (Auto) 11.0 /HPF (0.0-6.0) 09/08/21 10:40 U Epithel Cells (Auto) 5.0 /HPF (0-13.0) 09/08/21 10:40 Urine Bacteria (Auto) 4+ /HPF (Negative) 09/08/21 10:40 Hyaline Casts 3 /LPF 09/08/21 10:40 Vancomycin Trough 25.2 ug/mL (5.0-20.0) H 09/10/21 13:25 Blood Type A POSITIVE 09/07/21 13:55 Antibody Screen Negative 09/07/21 13:55 Microbiology: Microbiology 09/09/21 10:15 Wound - Deep Wound Culture - Preliminary Klebsiella Pneumoniae Neville/IV: Voiding Method Indwelling Catheter Active Medications - Current Medications Current Medications: Generic Name Dose Route Start Last Admin Trade Name Freq PRN Reason Stop Dose Admin Acetaminophen 650 mg 09/07/21 22:04 Acetaminophen 325 Mg Tab PO Q4H PRN Pain MILD(1-3)/Fever >100.5/HORNER Atorvastatin Calcium 40 mg 09/08/21 22:00 09/11/21 21:45 Atorvastatin 40 Mg Tab PO 40 mg QHS URSULA Administration Folic Acid 1 mg 09/09/21 10:00 09/12/21 09:53 Folic Acid 1 Mg Tab PO 1 mg QDAY URSULA Administration Heparin Sodium (Porcine) 5,000 unit 09/08/21 10:00 09/12/21 09:52 Heparin 5,000 Unit/1 Ml Vial SUB-Q 5,000 unit Q12HR URSULA Administration Dextrose/Sodium Chloride 1,000 mls @ 100 mls/hr 09/07/21 23:00 09/11/21 22:06 D5ns IV 100 mls/hr DIRECT URSULA Administration Ampicillin Sodium/Sulbactam Sodium 3 gm in 100 mls @ 100 mls/hr 09/08/21 00:00 09/12/21 05:56 Unasyn/Ns 3 Gm/100 Ml IV 100 mls/hr Q6HR URSULA Administration Protocol Vancomycin HCl 750 mg/ Sodium 265 mls @ 166.667 mls/hr 09/11/21 12:00 09/12/21 00:04 Chloride IV 166.667 mls/hr Q12H URSULA Administration Insulin Human Lispro 0 unit 09/08/21 07:30 09/12/21 09:54 Insulin Lispro 100 Unit/Ml SUB-Q Not Given ACHS [facility] Protocol Metoclopramide HCl 10 mg 09/07/21 22:04 Metoclopramide 10 Mg/2 Ml Inj IV Q6H PRN Nausea And Vomiting Metoprolol Tartrate 25 mg 09/08/21 22:00 09/12/21 09:54 Metoprolol Tartrate 25 Mg Tab PO Not Given BID URSULA Midodrine 10 mg 09/09/21 18:00 09/12/21 09:52 Midodrine 10 Mg Tab PO 10 mg 0800,1800 URSLUA Administration Morphine Sulfate 2 mg 09/07/21 22:04 Morphine 2 Mg/1 Ml Inj IV Q4H PRN Pain, Moderate (4-6) Ondansetron HCl 4 mg 09/07/21 22:04 Ondansetron 4 Mg/2 Ml Inj IV Q8H PRN Nausea And Vomiting Sodium Chloride 10 ml 09/07/21 23:00 09/12/21 09:54 Sodium Chloride 0.9% 10 Ml Flush Syringe IV 10 ml BID URUSLA Administration Sodium Chloride 10 ml 09/07/21 22:04 Sodium Chloride 0.9% 10 Ml Flush Syringe IV PRN PRN LINE FLUSH Sodium Hypochlorite 1 applic 09/09/21 19:00 09/12/21 09:53 Sodium Hypochlorite, Dakin's Full Strength (0.5%) 473 Ml Topical Soln TP 1 applicatio Q12H URSULA Administration Nutrition/Malnutrition Assess - Dietary Evaluation Nutrition/Malnutrition Findings: Nutrition Notes Start: 09/08/21 15:58 Freq: Status: Active Protocol: Document 09/10/21 13:24 AR (Rec: 09/10/21 13:59 AR [id number]) Nutrition Notes Initial or Follow up Brief Note Current Diagnosis Decubitus(Pressure Ulcer), Diabetes,Malnutrition Other Pertinent Diagnosis Anemia, Hypoglycemia. Current Diet GI Soft Diet (since 09/09), D Suppl (from D 09/10) Height 5 ft 8 in Weight 63.2 kg Ailey Body Weight (kg) 70.00 BMI 21.2 Weight change and time frame 0.303 Kg body weight loss reported ion 2 days. Weight Status Appropriate Subjective/Other Information RD consulr for routine F/U on dietary advancement. Diet advanced to PO, No reports available on Pt's PO intake of meals at the time, but states that Pt is tolerating GI Soft diet very well, according to Progress notes. Pt is on Room Air, O2 saturation @ 100%, according to Physical Assessment History notes. Procedure on 09/09: Sigmoid colostomy, and extensive debridement of multiple decubitus ulcers, wel tolerated, according to Operative Report notes. No reportt available of [employer]ER assessment/recommendations. I will prescribe dietary supplements to compensate for poor or insufficient PO intake of meals and support wound healing processes during LOS. Percent of energy/protein needs met: Prescribed GI Soft Diet provides for energy/protein needs (2,000 Kcal/82 g) during LOS; additionally, Dietary Supplements will support wound healing processes and compensate for possible poor or insufficient PO intake of meals with 630 Kcal and 25 g of protein. #2 Nutrition Diagnosis Predicted suboptimal energy intake Diagnosis Progress(for reassessment Continues documentation) #1 Nutrition Diagnosis Increased nutrient needs ( specify in comment below) Comments: Protein to support wound healing processes. Procedure on 09/09: Sigmoid colostomy, and extensive debridement of multiple decubitus ulcers, wel tolerated, according to Operative Report notes. Diagnosis Progress(for reassessment Improved documentation) Is patient on ventilator? No Is Patient Ambulatory and/or Out of Bed No REE-([place]-St. Jeor-confined to bed) 1692.996 Kcal/Kg value to use for calculation 29 Approximate Energy Requirements Using 1833 kcal/Kg Calculation Used for Recommendations Kcal/kg Additional Notes Protein: 0.25-1.5 g/Kg ABW; 80 -96 g/day. Fluids: 1 ml/Kcal, or as per MD. Nutrition Intervention Change Diet Order: Continue GI Soft Diet as tolerated. Add Supplement/Snack (indicate name/kcal Start 8 fl oz Glucerna; BID. /protein ) Start 28.8 g pkt Juan[place]ose; BID. Provides kCal: 630 Provides Protein (gm) 25 Goal #1 Support, through dietary supplementation, wound healing processes during LOS. Goal #2 Compensate, through dietary supplementation, for possible poor or insufficient PO intake of meals during LOS. Goal #3 Facilitate PO intake of meals with elemental, textural, or mechanical modification during LOS. Follow-Up By: 09/17/21 Additional Comments When pertinent, start monitoring food tolerance, %PO intake of meals, dietary supplements, and BM.
[2021-09-13] MEDS: D5W/0.9% NACL 1,000 ML IV SCH ×2 (01:32→23:24)
[2021-09-13] MEDS: INSULIN LISPRO 100 UNIT/ML SUB-Q SCH ×4 (07:24→21:45)
[2021-09-13] MEDS: SODIUM HYPOCHLORITE, DAKIN'S FULL STRENGTH (0.5%) 473 ML TOPICAL SOLN TP SCH ×2 (07:25→19:08)
--- NOTE | 2021-09-13 09:08 | Progress Note ---
Assessment and Plan Assessment and plan: --wound cultures Klebsiella pneumonia; Gram-negative rods Enterococcus species Currently on meropenem and vancomycin, ID following Continue supportive care, wound care, pain medications -- Sacral decubitus ulcer, stage IV- Severe sacral decubitus ulcer about 12 cm Adrian VIII centimeters X depth of about 2 cm with eschar formation over half of the decubitus ulcer Evaluated by surgeon patient underwent surgical procedure 09/09/2021 s/p surgical procedure 09/09/21 s/pPatient status post laparoscopic-assisted diversion with end sigmoid colostomy and extensive debridement of sacral decubitus. Ostomy is functioning, patient is tolerating soft diet Postop care per surgeon, continue wound care, antibiotics, dietary supplements s/p surgical debridement and wound VAC placement 09/14/2019 -- Hypoglycemia/resolved Persistent hypoglycemia IV D5W with normal saline Probably due to poor oral intake D50 W and glucagon as necessary Etiology of hypoglycemia unclear Poor p.o. intake --Hyponatremia Mild improvement Na improved from 128-132 this morning Continue normal saline closely monitor electrolytes --Anemia[dropped from 10.2-8.6 since admission] Closely monitor H&H, transfuse as needed No external evidence of bleeding, stool for occult blood Closely monitor -- Severe protein calorie malnutrition With hypoalbuminemia, nutrition supplements Nutrition consult and supportive care --Severe hyper anemia; albumin2.2 nutrition supplements, nutrition consult Supportive care -- DVT prophylaxis Subcu heparin and GI prophylaxis -- Advance care planning Could not be done because of logistics Plan of care reviewed with the patient and his nurse Brief history and daily Hospital course; 60-year-old male patient with history of diabetes mellitus was admitted through emergency room with hypoglycemia episode further work-up also consistent with stage IV sacral decubitus ulcer evaluated by surgeon patient underwent surgical debridement of sacral decubitus x2 with wound VAC placement today 09/13/2021 polymicrobial wound cultures positive currently on vancomycin and meropenem 09/08;I also discussed extensively with surgeon Dr. Titus Is planning surgical debridement tomorrow if patient is stable N.p.o. from midnight 09/09; patient is n.p.o. status, scheduled for surgical debridement Surgeon requested echocardiogram, echo ordered We will also add PT, INR and PTT 09/10; postop care per surgical team, patient tolerating soft diet Mild hypokalemia, replenished with KCl and follow electrolytes Surgeon is planning additional sacral wound debridement and wound VAC on Monday, 09/14/1909/11; patient comfortable, no new complaints Surgery following, planning additional wound debridement wound VAC placement on 09/13/202109/12; wound cultures positive for Klebsiella pneumonia sensitive to imipenem Antibiotics changed to imipenem, ID consulted Patient scheduled for surgical debridement and possible wound VAC placement procedure tomorrow, Patient is n.p.o. from midnight 09/13; ID adjusted antibiotics currently patient is on vancomycin and meropenem Follow culture sensitivities, follow surgeon for rest of the plan History Interval history: I have seen and examined the patient at bedside Patient planning to go for sacral decubitus review and possible debridement if needed with possible wound VAC placement per surgeon Patient is n.p.o. status No new complaints Vital signs reviewed Hospitalist Physical - Constitutional Vitals: Temp Pulse Resp BP Pulse Ox 98.4 F 74 18 90/51 100 09/13/21 04:47 09/13/21 04:47 09/13/21 04:47 09/13/21 04:47 09/13/21 04:47 General appearance: Present: no acute distress, well-nourished - EENT Eyes: Present: PERRL, EOM intact - Neck Neck: Present: supple, normal ROM - Respiratory Respiratory effort: normal Respiratory: bilateral: diminished, negative: rales, rhonchi, wheezing - Cardiovascular Rhythm: regular Heart Sounds: Present: S1 & S2 - Extremities Extremities: no ischemia, abnormal - Abdominal General gastrointestinal: soft, non-tender, non-distended, normal bowel sounds - Integumentary Integumentary: Present: clear, warm, decreased turgor (Dressing in place in sacral area) - Psychiatric Psychiatric: appropriate mood/affect, cooperative - Neurologic Neurologic: CNII-XII intact, moves all extremities HEART Score - HEART Score Troponin: Troponin T 0.013 ng/mL (0.00-0.029) 09/07/21 13:13 Results - Labs CBC & Chem 7: 09/10/21 19:47 09/10/21 19:47 Labs: Laboratory Last Values WBC 8.3 K/mm3 (4.5-11.0) 09/10/21 05:59 RBC 2.65 M/mm3 (3.65-5.03) L 09/10/21 05:59 Hgb 7.3 gm/dl (11.8-15.2) L 09/10/21 19:47 Hct 21.6 % (35.5-45.6) L 09/10/21 19:47 MCV 87 fl (84-94) 09/10/21 05:59 MCH 29 pg (28-32) 09/10/21 05:59 MCHC 33 % (32-34) 09/10/21 05:59 RDW 14.2 % (13.2-15.2) 09/10/21 05:59 Plt Count 578 K/mm3 (140-440) H 09/10/21 05:59 Lymph % (Auto) 12.6 % (13.4-35.0) L 09/10/21 05:59 [place] % (Auto) 3.5 % (0.0-7.3) 09/10/21 05:59 Eos % (Auto) 1.4 % (0.0-4.3) 09/10/21 05:59 Baso % (Auto) 0.2 % (0.0-1.8) 09/10/21 05:59 Lymph # (Auto) 1.0 K/mm3 (1.2-5.4) L 09/10/21 05:59 [place] # (Auto) 0.3 K/mm3 (0.0-0.8) 09/10/21 05:59 Eos # (Auto) 0.1 K/mm3 (0.0-0.4) 09/10/21 05:59 Baso # (Auto) 0.0 K/mm3 (0.0-0.1) 09/10/21 05:59 Add Manual Diff Complete 09/08/21 04:58 Total Counted 100 09/08/21 04:58 Seg Neutrophils % 82.3 % (40.0-70.0) H 09/10/21 05:59 Seg Neuts % (Manual) 95.0 % (40.0-70.0) H 09/08/21 04:58 Band Neutrophils % 1.0 % 09/08/21 04:58 Lymphocytes % (Manual) 3.0 % (13.4-35.0) L 09/08/21 04:58 Reactive Lymphs % (Man) 0 % 09/08/21 04:58 Monocytes % (Manual) 1.0 % (0.0-7.3) 09/08/21 04:58 Eosinophils % (Manual) 0 % (0.0-4.3) 09/08/21 04:58 Basophils % (Manual) 0 % (0.0-1.8) 09/08/21 04:58 Metamyelocytes % 0 % 09/08/21 04:58 Myelocytes % 0 % 09/08/21 04:58 Promyelocytes % 0 % 09/08/21 04:58 Blast Cells % 0 % 09/08/21 04:58 Nucleated RBC % Not Reportable 09/08/21 04:58 Seg Neutrophils # 6.8 K/mm3 (1.8-7.7) 09/10/21 05:59 Seg Neutrophils # Man 15.4 K/mm3 (1.8-7.7) H 09/08/21 04:58 Band Neutrophils # 0.2 K/mm3 09/08/21 04:58 Lymphocytes # (Manual) 0.5 K/mm3 (1.2-5.4) L 09/08/21 04:58 Abs React Lymphs (Man) 0.0 K/mm3 09/08/21 04:58 Monocytes # (Manual) 0.2 K/mm3 (0.0-0.8) 09/08/21 04:58 Eosinophils # (Manual) 0.0 K/mm3 (0.0-0.4) 09/08/21 04:58 Basophils # (Manual) 0.0 K/mm3 (0.0-0.1) 09/08/21 04:58 Metamyelocytes # 0.0 K/mm3 09/08/21 04:58 Myelocytes # 0.0 K/mm3 09/08/21 04:58 Promyelocytes # 0.0 K/mm3 09/08/21 04:58 Blast Cells # 0.0 K/mm3 09/08/21 04:58 WBC Morphology Not Reportable 09/08/21 04:58 Hypersegmented Neuts Not Reportable 09/08/21 04:58 Hyposegmented Neuts Not Reportable 09/08/21 04:58 Hypogranular Neuts Not Reportable 09/08/21 04:58 Smudge Cells Not Reportable 09/08/21 04:58 Toxic Granulation Not Reportable 09/08/21 04:58 Toxic Vacuolation Not Reportable 09/08/21 04:58 Dohle Bodies Not Reportable 09/08/21 04:58 Pelger-Huet Anomaly Not Reportable 09/08/21 04:58 Robert Rods Not Reportable 09/08/21 04:58 Platelet Estimate Consistent w auto 09/08/21 04:58 Clumped Platelets Not Reportable 09/08/21 04:58 Plt Clumps, EDTA Not Reportable 09/08/21 04:58 Large Platelets Not Reportable 09/08/21 04:58 Giant Platelets Not Reportable 09/08/21 04:58 Platelet Satelliting Not Reportable 09/08/21 04:58 Plt Morphology Comment Not Reportable 09/08/21 04:58 RBC Morphology Normal 09/08/21 04:58 Dimorphic RBCs Not Reportable 09/08/21 04:58 Polychromasia Not Reportable 09/08/21 04:58 Hypochromasia Not Reportable 09/08/21 04:58 Poikilocytosis Not Reportable 09/08/21 04:58 Anisocytosis Not Reportable 09/08/21 04:58 Microcytosis Not Reportable 09/08/21 04:58 Macrocytosis Not Reportable 09/08/21 04:58 Spherocytes Not Reportable 09/08/21 04:58 Pappenheimer Bodies Not Reportable 09/08/21 04:58 Sickle Cells Not Reportable 09/08/21 04:58 Target Cells Not Reportable 09/08/21 04:58 Tear Drop Cells Not Reportable 09/08/21 04:58 Ovalocytes Not Reportable 09/08/21 04:58 Helmet Cells Not Reportable 09/08/21 04:58 [place] Bodies Not Reportable 09/08/21 04:58 [place] Rings Not Reportable 09/08/21 04:58 [place] Cells Not Reportable 09/08/21 04:58 Bite Cells Not Reportable 09/08/21 04:58 Crenated Cell Not Reportable 09/08/21 04:58 Elliptocytes Not Reportable 09/08/21 04:58 Acanthocytes (Spur) Not Reportable 09/08/21 04:58 Rouleaux Not Reportable 09/08/21 04:58 Hemoglobin C Crystals Not Reportable 09/08/21 04:58 Schistocytes Not Reportable 09/08/21 04:58 Malaria parasites Not Reportable 09/08/21 04:58 Ludwig Bodies Not Reportable 09/08/21 04:58 Hem Pathologist Commnt No 09/08/21 04:58 PT 13.7 Sec. (12.2-14.9) 09/09/21 10:29 INR 0.95 (0.87-1.13) 09/09/21 10:29 APTT 45.4 Sec. (24.2-36.6) H 09/09/21 10:29 Sodium 135 mmol/L (137-145) L 09/10/21 19:47 Potassium 3.7 mmol/L (3.6-5.0) 09/10/21 19:47 Chloride 101.4 mmol/L (98-107) 09/10/21 19:47 Carbon Dioxide 25 mmol/L (22-30) 09/10/21 19:47 Anion Gap 12 mmol/L 09/10/21 19:47 BUN 5 mg/dL (9-20) L 09/10/21 19:47 Creatinine 0.5 mg/dL (0.8-1.3) L 09/10/21 19:47 Estimated GFR > 60 ml/min 09/10/21 19:47 BUN/Creatinine Ratio 10 % 09/10/21 19:47 Glucose 220 mg/dL (75-100) H 09/10/21 19:47 POC Glucose 139 mg/dL (70-105) H 09/13/21 07:17 Hemoglobin A1c 14.9 % (4-6) H 09/11/21 04:40 Lactic Acid 1.40 mmol/L (0.7-2.0) 09/07/21 15:23 Calcium 7.5 mg/dL (8.4-10.2) L 09/10/21 19:47 Magnesium 2.20 mg/dL (1.7-2.3) 09/10/21 19:47 Total Bilirubin 0.20 mg/dL (0.1-1.2) 09/10/21 19:47 AST 23 units/L (5-40) 09/10/21 19:47 ALT 11 units/L (7-56) 09/10/21 19:47 Alkaline Phosphatase 116 units/L (35-129) 09/10/21 19:47 Troponin T 0.013 ng/mL (0.00-0.029) 09/07/21 13:13 Total Protein 5.3 g/dL (6.3-8.2) L D 09/10/21 19:47 Albumin 1.8 g/dL (3.9-5) L 09/10/21 19:47 Albumin/Globulin Ratio 0.5 % 09/10/21 19:47 Urine Color Yellow (Yellow) 09/08/21 10:40 Urine Turbidity Clear (Clear) 09/08/21 10:40 Urine pH 6.0 (5.0-7.0) 09/08/21 10:40 Ur Specific [place] 1.015 (1.003-1.030) 09/08/21 10:40 Urine Protein <30 mg dl mg/dL (Negative) 09/08/21 10:40 Urine Glucose (UA) Negative mg/dL (Negative) 09/08/21 10:40 Urine Ketones Negative mg/dL (Negative) 09/08/21 10:40 Urine Blood Negative (Negative) 09/08/21 10:40 Urine Nitrite Positive (Negative) 09/08/21 10:40 Ur Reducing Substances Not Reportable 09/08/21 10:40 Urine Bilirubin Negative (Negative) 09/08/21 10:40 Urine Ictotest Not Reportable 09/08/21 10:40 Urine Urobilinogen < 2.0 mg/dL (<2.0) 09/08/21 10:40 Ur Leukocyte Esterase Small (Negative) 09/08/21 10:40 Urine WBC (Auto) 62.0 /HPF (0.0-6.0) H 09/08/21 10:40 Urine RBC (Auto) 11.0 /HPF (0.0-6.0) 09/08/21 10:40 U Epithel Cells (Auto) 5.0 /HPF (0-13.0) 09/08/21 10:40 Urine Bacteria (Auto) 4+ /HPF (Negative) 09/08/21 10:40 Hyaline Casts 3 /LPF 09/08/21 10:40 Vancomycin Trough 25.2 ug/mL (5.0-20.0) H 09/10/21 13:25 Blood Type A POSITIVE 09/07/21 13:55 Antibody Screen Negative 09/07/21 13:55 Microbiology: Microbiology 09/09/21 Unknown Other (Please Specify:) - Other Anaerobic Culture - Prel iminary 09/09/21 Unknown Other (Please Specify:) - Other Surgical Culture - Preliminary Gram Negative [place] Enterococcus Species 09/09/21 10:15 Wound - Deep Wound Culture - Final Klebsiella Pneumoniae Neville/IV: Voiding Method Indwelling Catheter Active Medications - Current Medications Current Medications: Generic Name Dose Route Start Last Admin Trade Name Freq PRN Reason Stop Dose Admin Acetaminophen 650 mg 09/07/21 22:04 Acetaminophen 325 Mg Tab PO Q4H PRN Pain MILD(1-3)/Fever >100.5/HORNER Atorvastatin Calcium 40 mg 09/08/21 22:00 09/12/21 22:13 Atorvastatin 40 Mg Tab PO 40 mg QHS URSULA Administration Folic Acid 1 mg 09/09/21 10:00 09/12/21 09:53 Folic Acid 1 Mg Tab PO 1 mg QDAY URSULA Administration Heparin Sodium (Porcine) 5,000 unit 09/08/21 10:00 09/12/21 22:15 Heparin 5,000 Unit/1 Ml Vial SUB-Q 5,000 unit Q12HR URSULA Administration Dextrose/Sodium Chloride 1,000 mls @ 100 mls/hr 09/07/21 23:00 09/13/21 01:32 D5ns IV 100 mls/hr DIRECT URSULA Administration Ertapenem 1 gm/ Sodium 50 mls @ 100 mls/hr 09/13/21 10:00 Chloride IV QDAY URSULA Insulin Human Lispro 0 unit 09/08/21 07:30 09/13/21 07:24 Insulin Lispro 100 Unit/Ml SUB-Q Not Given ACHS [facility] Protocol Metoclopramide HCl 10 mg 09/07/21 22:04 Metoclopramide 10 Mg/2 Ml Inj IV Q6H PRN Nausea And Vomiting Metoprolol Tartrate 25 mg 09/08/21 22:00 09/12/21 22:14 Metoprolol Tartrate 25 Mg Tab PO 25 mg BID URSULA Administration Midodrine 10 mg 09/09/21 18:00 09/12/21 18:16 Midodrine 10 Mg Tab PO 10 mg 0800,1800 URSULA Administration Morphine Sulfate 2 mg 09/07/21 22:04 Morphine 2 Mg/1 Ml Inj IV Q4H PRN Pain, Moderate (4-6) Ondansetron HCl 4 mg 09/07/21 22:04 Ondansetron 4 Mg/2 Ml Inj IV Q8H PRN Nausea And Vomiting Sodium Chloride 10 ml 09/07/21 23:00 09/12/21 22:14 Sodium Chloride 0.9% 10 Ml Flush Syringe IV 10 ml BID URSULA Administration Sodium Chloride 10 ml 09/07/21 22:04 Sodium Chloride 0.9% 10 Ml Flush Syringe IV PRN PRN LINE FLUSH Sodium Hypochlorite 1 applic 09/09/21 19:00 09/13/21 07:25 Sodium Hypochlorite, Dakin's Full Strength (0.5%) 473 Ml Topical Soln TP Not Given Q12H URSULA Nutrition/Malnutrition Assess - Dietary Evaluation Nutrition/Malnutrition Findings: Nutrition Notes Start: 09/08/21 15:58 Freq: Status: Active Protocol: Document 09/10/21 13:24 AR (Rec: 09/10/21 13:59 AR [id number]) Nutrition Notes Initial or Follow up Brief Note Current Diagnosis Decubitus(Pressure Ulcer), Diabetes,Malnutrition Other Pertinent Diagnosis Anemia, Hypoglycemia. Current Diet GI Soft Diet (since D 09/09), D Suppl (from D 09/10) Height 5 ft 8 in Weight 63.2 kg Sylvia Body Weight (kg) 70.00 BMI 21.2 Weight change and time frame 0.303 Kg body weight loss reported ion 2 days. Weight Status Appropriate Subjective/Other Information RD consulr for routine F/U on dietary advancement. Diet advanced to PO, No reports available on Pt's PO intake of meals at the time, but states that Pt is tolerating GI Soft diet very well, according to Progress notes. Pt is on Room Air, O2 saturation @ 100%, according to Physical Assessment History notes. Procedure on 09/09: Sigmoid colostomy, and extensive debridement of multiple decubitus ulcers, wel tolerated, according to Operative Report notes. No reportt available of CLOUD ADMINISTRATOR assessment/recommendations. I will prescribe dietary supplements to compensate for poor or insufficient PO intake of meals and support wound healing processes during LOS. Percent of energy/protein needs met: Prescribed GI Soft Diet provides for energy/protein needs (2,000 Kcal/82 g) during LOS; additionally, Dietary Supplements will support wound healing processes and compensate for possible poor or insufficient PO intake of meals with 630 Kcal and 25 g of protein. #2 Nutrition Diagnosis Predicted suboptimal energy intake Diagnosis Progress(for reassessment Continues documentation) #1 Nutrition Diagnosis Increased nutrient needs ( specify in comment below) Comments: Protein to support wound healing processes. Procedure on 09/09: Sigmoid colostomy, and extensive debridement of multiple decubitus ulcers, wel tolerated, according to Operative Report notes. Diagnosis Progress(for reassessment Improved documentation) Is patient on ventilator? No Is Patient Ambulatory and/or Out of Bed No REE-([facility]-confined to bed) 1692.996 Kcal/Kg value to use for calculation 29 Approximate Energy Requirements Using 1833 kcal/Kg Calculation Used for Recommendations Kcal/kg Additional Notes Protein: 0.25-1.5 g/Kg ABW; 80 -96 g/day. Fluids: 1 ml/Kcal, or as per MD. Nutrition Intervention Change Diet Order: Continue GI Soft Diet as tolerated. Add Supplement/Snack (indicate name/kcal Start 8 fl oz Glucerna; BID. /protein ) Start 28.8 g pkt Juanjose; BID. Provides kCal: 630 Provides Protein (gm) 25 Goal #1 Support, through dietary supplementation, wound healing processes during LOS. Goal #2 Compensate, through dietary supplementation, for possible poor or insufficient PO intake of meals during LOS. Goal #3 Facilitate PO intake of meals with elemental, textural, or mechanical modification during LOS. Follow-Up By: 09/17/21 Additional Comments When pertinent, start monitoring food tolerance, %PO intake of meals, dietary supplements, and BM.
[2021-09-13] MEDS ORDERED: fentaNYL 100 MCG/2 ML INJ ONE (09:27)
[2021-09-13] MEDS ORDERED: LIDOCAINE MPF (2%) 20 MG/1 ML VIAL 5 ML ONE (09:27)
[2021-09-13] MEDS ORDERED: propofoL 200 MG/20 ML VIAL IV ONE (09:28)
--- NOTE | 2021-09-13 09:44 | Anesthesia Day of Surgery ---
Anesthesia Day of Surgery - Day of Surgery Patient Examined: Yes Patient H&P Reviewed: Yes Patient is NPO: Yes
[2021-09-13] MEDS ORDERED: ERTAPENEM 1 GM in SODIUM CHLORIDE 0.9% 50 ML IV SCH (10:00)
[2021-09-13] MEDS: HEPARIN 5,000 UNIT/1 ML VIAL SUB-Q SCH ×2 (10:18→21:46)
[2021-09-13] MEDS: METOPROLOL TARTRATE 25 MG TAB PO SCH ×2 (10:28→22:00)
[2021-09-13] MEDS: FOLIC ACID 1 MG TAB PO SCH (10:33)
[2021-09-13] MEDS ORDERED: SODIUM CHLORIDE 0.9% 500 ML 500 ML IV ONE (11:00)
[2021-09-13] MEDS: MIDODRINE 10 MG TAB PO SCH ×2 (11:15→17:53)
[2021-09-13] MEDS ORDERED: VANCOMYCIN 750 MG in SODIUM CHLORIDE 0.9% 500 ML 500 ML IV ONE (11:23)
--- NOTE | 2021-09-13 11:23 | Consultation ---
History of Present Illness - Reason for Consult Consult date: 09/13/21 ESBL in wound Requesting physician: SAVANNA HARE - History of Present Illness The patient is a 60-year-old male with diabetes, cachexia, poor historian was admitted on 09/07/2021 due to hypoglycemia. He was also having worsening of his sacral decubitus ulcer. Upon admission, noted to have sepsis, hypotension, leukocytosis. General surgery was consulted, patient underwent diverting colostomy as well as debridement of sacral decubitus ulcer. Wound culture is growing MDR/ESBL producing organisms, ID was consulted for antibiotic management. Poor historian. Says he has been bed bound since Mar 2021 after he fell from the stairs. Review of Systems: General: no fevers,chills or rigors HEENT: no new visual disturbance Respiratory: No cough, sputum, hemoptysis or shortness of breath Cardiovascular: No chest pain, syncope Gastrointestinal: No nausea, vomiting or diarrhea Genitourinary: No dysuria or hematuria Musculoskeletal: No new or worsening neck pain or back pain Neurologic: No headaches, seizures Hematologic: No easy bruising or bleeding Endocrine: No night sweats or acute weight loss Skin: negative for rash, jaundice Psychiatric: No suicidal or homicidal ideation Past History Past Medical History: diabetes, other (Sacral decubitus ulcer) Past Surgical History: Other (Stage IV decubitus ulcer) Social history: lives with family, full code Medications and Allergies Allergies Allergy/AdvReac Type Severity Reaction Status Date / Time No Known Allergies Allergy Verified 09/07/21 14:52 Home Medications Medication Instructions Recorded Confirmed Last Taken Type Atorvastatin [Lipitor Tab] 40 mg PO QHS 09/08/21 09/08/21 1 Day Ago History ~09/07/21 Folic Acid [Folvite] 1 mg PO QDAY 09/08/21 09/08/21 1 Day Ago History ~09/07/21 Insulin NPH Hum/Reg Insulin Hm 15 unit SQ BID 09/08/21 09/08/21 1 Day Ago History [Novolin 70-30 Flexpen] ~09/07/21 Metoprolol [Lopressor] 25 mg PO BID 09/08/21 09/08/21 1 Day Ago History ~09/07/21 Active Meds: Active Medications Acetaminophen (Acetaminophen 325 Mg Tab) 650 mg PO Q4H PRN PRN Reason: Pain MILD(1-3)/Fever >100.5/HORNER Atorvastatin Calcium (Atorvastatin 40 Mg Tab) 40 mg PO QHS [facility] Last Admin: 09/12/21 22:13 Dose: 40 mg Folic Acid (Folic Acid 1 Mg Tab) 1 mg PO QDAY [facility] Last Admin: 09/13/21 10:33 Dose: 1 mg Heparin Sodium (Porcine) (Heparin 5,000 Unit/1 Ml Vial) 5,000 unit SUB-Q Q12HR [facility] Last Admin: 09/13/21 10:18 Dose: Not Given Dextrose/Sodium Chloride (D5ns) 1,000 mls @ 100 mls/hr IV DIRECT [facility] Last Admin: 09/13/21 01:32 Dose: 100 mls/hr Ertapenem 1 gm/ Sodium (Chloride) 50 mls @ 100 mls/hr IV QDAY [facility] Last Admin: 09/13/21 10:34 Dose: 100 mls/hr Sodium Chloride (Nacl 0.9% 500 Ml) 500 mls @ 999 mls/hr IV ONCE ONE Stop: 09/13/21 11:30 Last Admin: 09/13/21 11:15 Dose: 999 mls/hr Insulin Human Lispro (Insulin Lispro 100 Unit/Ml) 0 unit SUB-Q ACHS [facility]; Protocol Last Admin: 09/13/21 07:24 Dose: Not Given Metoclopramide HCl (Metoclopramide 10 Mg/2 Ml Inj) 10 mg IV Q6H PRN PRN Reason: Nausea And Vomiting Metoprolol Tartrate (Metoprolol Tartrate 25 Mg Tab) 25 mg PO BID [facility] Last Admin: 09/13/21 10:28 Dose: Not Given Midodrine (Midodrine 10 Mg Tab) 10 mg PO 0800,1800 [facility] Last Admin: 09/13/21 11:15 Dose: 10 mg Morphine Sulfate (Morphine 2 Mg/1 Ml Inj) 2 mg IV Q4H PRN PRN Reason: Pain, Moderate (4-6) Ondansetron HCl (Ondansetron 4 Mg/2 Ml Inj) 4 mg IV Q8H PRN PRN Reason: Nausea And Vomiting Sodium Chloride (Sodium Chloride 0.9% 10 Ml Flush Syringe) 10 ml IV BID [facility] Last Admin: 09/13/21 10:34 Dose: 10 ml Sodium Chloride (Sodium Chloride 0.9% 10 Ml Flush Syringe) 10 ml IV PRN PRN PRN Reason: LINE FLUSH Sodium Hypochlorite (Sodium Hypochlorite, Dakin's Full Strength (0.5%) 473 Ml Topical Soln) 1 applic TP Q12H [facility]UL[facility] Last Admin: 09/13/21 07:25 Dose: Not Given Physical Examination - Physical Exam Narrative exam: Physical Exam: Constitutional: Alert, cooperative. No acute distress Head, Ears, Nose: Normocephalic, atraumatic. External ears, nose normal Eyes: Conjunctivae/corneas clear. No icterus. No ptosis. Neck: Supple, no meningeal signs Cardiovascular: S1, S2 + Respiratory: Good air entry, clear to auscultation bilaterally GI: Soft, non-tender; bowel sounds normal. No peritoneal signs Musculoskeletal: No pedal edema, no cyanosis. Skin: Large sacral wound + Hem/Lymphatic: No palpable cervical or supraclavicular nodes. No lymphangitis Psych: Mood ok. Affect normal Neurological: Awake, alert, oriented. Cachexia - Constitutional Vitals: Vital Signs Temp Pulse Resp BP Pulse Ox 98.4 F 85 16 84/50 100 09/13/21 04:47 09/13/21 10:28 09/13/21 10:23 09/13/21 10:28 09/13/21 04:47 Temperature -Last 24 Hours Temperature 98.4 F Temperature 99.1 F Temperature 98.1 F Results - Labs CBC & Chem 7: 09/10/21 19:47 09/10/21 19:47 Labs: Abnormal lab results 09/12/21 09/12/21 09/12/21 Range/Units 11:33 15:55 22:29 POC Glucose 162 H 237 H 128 H (70-105) mg/dL 09/13/21 Range/Units 07:17 POC Glucose 139 H (70-105) mg/dL - Imaging and Cardiology Chest x-ray: report reviewed, image reviewed (CXR without pneumonia) Assessment and Plan Cultures: 09/07/2021 blood culture: GPC, gram-negative diplococci 09/08/2021 urine culture: No significant growth 09/09/2021 deep wound culture: Klebsiella pneumonia, ESBL producing 09/09/2021 surgical culture: GNR, Enterococcus A/P: 60-year-old male with diabetes, cachexia, poor historian was admitted on 09/07/2021 due to hypoglycemia. He reports being bed bound since Mar 2021 after he fell from the stairs: #Sepsis, polymicrobial bacteremia, secondary to necrotic sacral decubitus ulcer: S/p diverting colostomy and debridement of sacral decubitus ulcer on 09/09/2021. #Diabetes mellitus, uncontrolled #Protein calorie malnutrition #Reactive thrombocytosis Recs: Ertapenem switched to meropenem for better coverage of Enterococcus IV vancomycin added due to GPC/polymicrobial bacteremia repeat blood cultures ordered due to bacteremia, also ordered TTE Follow-up cultures Guarded prognosis D/W Dr. Myrtle Browne MD, FACP, [facility] O: [phone] F: [phone] C: [phone]
[2021-09-13] MEDS ORDERED: VANCOMYCIN PHARMACY TO DOSE IV SCH (12:00)
[2021-09-13] MEDS: VANCOMYCIN 750 MG in SODIUM CHLORIDE 0.9% 250ML 250 ML IV SCH (12:00)
[2021-09-13] MEDS ORDERED: ePHEDrine SULFATE 50 MG/1 ML INJ ONE (12:23)
[2021-09-13] MEDS ORDERED: BUPIVACAINE/PF (0.5%) 5 MG/1 ML 30 ML VIAL INFILTRATI ONE (12:55)
[2021-09-13] MEDS ORDERED: SODIUM CHLORIDE 0.9% IRRIG SOLN 3000 ML IR ONE (14:05)
[2021-09-13] MEDS ORDERED: SUGAMMADEX SODIUM 200 MG/2 ML VIAL IV ONE (14:21)
[2021-09-13] MEDS ORDERED: ROCURONIUM 50 MG/5 ML INJ IV ONE (14:58)
[2021-09-13] MEDS ORDERED: PHENYLEPHRINE/NS 1,000 MCG/10 ML SYRINGE (OR USE) IV ONE (14:58)
[2021-09-13] MEDS ORDERED: ePHEDrine SULFATE 50 MG/1 ML INJ IM PRN (15:07)
--- NOTE | 2021-09-13 15:10 | Operative Report ---
Operative Report Operative Report: Date: 09/14/2019 Preoperative diagnosis: Decubitus ulcer of sacrum and ischial tuberosities Postop diagnosis: Same Procedure: Debridement of decubitus ulcerof sacrum and ischial tuberosities Surgeon: Dr. Titus EBL: Less than 10 cc Anesthesia: General endotracheal anesthesia Specimen: None Procedure: The patient is taken to the OR and after timeouts are completed the decubitus ulcer is prepped with Betadine and draped in a sterile fashion. Thick necrotic tissue was encountered and debrided mechanically with a curved Gifford and an Allis forceps. The [employer] generator platform was then used with the flat tip for ultrasound debridement of the interface between the necrotic tissue and the living tissue. Sacral ulcer size is 10 x 12 x 1.5 cm before debridement and 10 x 12 x 1.7 cm after debridement. Debridement goes down to the periosteum and in the sacrum. Right ischial tuberosity ulcer is debrided wound size is 5 x 4 x 0.5 cm before debridement and after debridement is 5 x 4 x 0.7 cm. Wound extends through the epidermis and dermis. Left ischial tuberosity ulcer is debrided wound size is 5 x 3 x 0.4 cm before debridement and after debridement is 5 x 3 x 0.5 cm.Wound extends through the epidermis and dermis. Adaptic is put down over exposed bone in the sacral ulcer. The wound is then irrigated with copious amounts of saline. Wound VAC is then placed over the sacral wound and ischial tuberosity ulcers bilaterally. Procedure is ended.
[2021-09-13] MEDS: MEROPENEM/NS 1 GRAM/100 ML 1 GRAM/100 ML BAG IV SCH ×2 (16:19→21:45)
[2021-09-13 17:35] LABS: Hematocrit 26.7 % (35.5-45.6); Hemoglobin 8.6 gm/dl (11.8-15.2)
[2021-09-13] MEDS ORDERED: MAGNESIUM HYDROXIDE (MOM) ORAL LIQD UDC PO ONE (18:00)
[2021-09-14] MEDS: MEROPENEM/NS 1 GRAM/100 ML 1 GRAM/100 ML BAG IV SCH ×3 (05:51→23:16)
[2021-09-14] MEDS: INSULIN LISPRO 100 UNIT/ML SUB-Q SCH ×5 (07:30→23:16)
[2021-09-14] MEDS: SODIUM HYPOCHLORITE, DAKIN'S FULL STRENGTH (0.5%) 473 ML TOPICAL SOLN TP SCH ×2 (08:36→18:13)
[2021-09-14] MEDS: MIDODRINE 10 MG TAB PO SCH ×2 (08:50→18:14)
[2021-09-14] MEDS: HEPARIN 5,000 UNIT/1 ML VIAL SUB-Q SCH ×3 (08:51→23:15)
[2021-09-14] MEDS: FOLIC ACID 1 MG TAB PO SCH ×2 (08:51→11:48)
[2021-09-14] MEDS: METOPROLOL TARTRATE 25 MG TAB PO SCH ×3 (09:24→23:17)
--- NOTE | 2021-09-14 11:31 | Progress Note ---
Assessment and Plan 60-year-old male with history of diabetes presents to the emergency department complaining of hypoglycemia noticed by family this morning. Patient denies any complaints, currently, however is a poor historian. Patient's daughter reports that the patient had a blood sugar of 55 at home, EMS gave the patient D50, and the blood sugar came up to 122. Patient denies any complaints, but does report that he has not been eating, well. Patient's family thinks that the sacral decubitus that is getting worse is the cause of his hypoglycemia. Patient with Klebsiella pneumonia growing from his sacral wound. Plan to return to the OR if time is available tomorrow for debridement and reassessment of the wound with possible wound VAC placement. Patient status post debridement of sacral decubitus and bilateral pubic tubercle ulcers. Wound VAC is placed. It appears to be holding his suction this morning. We will try to change wound VAC at bedside tomorrow. Continue IV antibiotics for gram-negative rods and bacteria is grown out of the wound. Subjective Date of service: 09/14/21 Patient Reports: Positive: no new complaints, feels better Narrative: Patient status post debridement of sacral decubitus and bilateral pubic tubercle ulcers. Wound VAC is placed. It appears to be holding his suction this morning. We will try to change wound VAC at bedside tomorrow. Continue IV antibiotics for gram-negative rods and bacteria is grown out of the wound. Objective Vital Signs - 12hr 09/14/21 09/14/21 09/14/21 02:00 07:40 08:41 Temperature 98.5 F Pulse Rate 92 H Pulse Rate [ 92 H Apical] Respiratory 20 Rate Blood Pressure Blood Pressure 108/61 [Left] O2 Sat by Pulse 100 100 100 Oximetry 09/14/21 09:24 Temperature Pulse Rate 95 H Pulse Rate [ Apical] Respiratory Rate Blood Pressure 104/61 Blood Pressure [Left] O2 Sat by Pulse Oximetry - Labs 09/13/21 Unknown 09/10/21 19:47
[2021-09-14] MEDS: VANCOMYCIN 750 MG in SODIUM CHLORIDE 0.9% 250ML 250 ML IV SCH ×2 (11:54)
[2021-09-14] MEDS: D5W/0.9% NACL 1,000 ML IV SCH (11:57)
--- NOTE | 2021-09-14 12:55 | Progress Note ---
Assessment and Plan Brief history and daily Hospital course; 60-year-old male patient with history of diabetes mellitus was admitted through emergency room with hypoglycemia episode further work-up also consistent with stage IV sacral decubitus ulcer evaluated by surgeon patient underwent surgical debridement of sacral decubitus x2 with wound VAC placement today 09/13/2021 polymicrobial wound cultures positive currently on vancomycin and meropenem 09/08;I also discussed extensively with surgeon Dr. Titus Is planning surgical debridement tomorrow if patient is stable N.p.o. from midnight 09/09; patient is n.p.o. status, scheduled for surgical debridement Surgeon requested echocardiogram, echo ordered We will also add PT, INR and PTT 09/10; postop care per surgical team, patient tolerating soft diet Mild hypokalemia, replenished with KCl and follow electrolytes Surgeon is planning additional sacral wound debridement and wound VAC on Monday, 09/14/1909/11; patient comfortable, no new complaints Surgery following, planning additional wound debridement wound VAC placement on 09/13/202109/12; wound cultures positive for Klebsiella pneumonia sensitive to imipenem Antibiotics changed to imipenem, ID consulted Patient scheduled for surgical debridement and possible wound VAC placement procedure tomorrow, Patient is n.p.o. from midnight 09/13; ID adjusted antibiotics currently patient is on vancomycin and meropenem Follow culture sensitivities, follow surgeon for rest of the plan 09/14; placed on wound VAC, final wound culture pending, continue vancomycin and meropenem Assessment and plan: -- Sacral decubitus ulcer, stage IV- Severe sacral decubitus ulcer about 12 cm [place] VIII centimeters X depth of about 2 cm with eschar formation over half of the decubitus ulcer Evaluated by surgeon patient underwent surgical procedure 09/09/2021 and another debridement with wound VAC placement on 09/13/21 s/pPatient status post laparoscopic-assisted diversion with end sigmoid colostomy and extensive debridement of sacral decubitus. Ostomy is functioning, patient is tolerating soft diet Postop care per surgeon, continue wound care, antibiotics, dietary supplements --wound cultures Klebsiella pneumonia; Gram-negative rods Enterococcus species Currently on meropenem and vancomycin, ID following Continue supportive care, wound care, pain medications -- Hypoglycemia/resolved Persistent hypoglycemia IV D5W with normal saline Probably due to poor oral intake D50 W and glucagon as necessary Etiology of hypoglycemia unclear Poor p.o. intake --Hyponatremia Mild improvement Na improved from 128-132 this morning Continue normal saline closely monitor electrolytes --Anemia[dropped from 10.2-8.6 since admission] Closely monitor H&H, transfuse as needed No external evidence of bleeding, stool for occult blood Closely monitor -- Severe protein calorie malnutrition With hypoalbuminemia, nutrition supplements Nutrition consult and supportive care --Severe hyper anemia; albumin2.2 nutrition supplements, nutrition consult Supportive care -- DVT prophylaxis Subcu heparin and GI prophylaxis -- Advance care planning Could not be done because of logistics Plan of care reviewed with the patient and his nurse Subjective Date of service: 09/14/21 Interval history: Patient seen and examined. Medical records and medication list reviewed. No acute event overnight noted by the RN. Patient denies any chest pain or difficulty breathing. Patient is tolerating diet. Discussed plan of care at bedside with patient. Objective - Exam Narrative Exam: General appearance: Present: no acute distress, well-nourished - EENT Eyes: Present: PERRL, EOM intact - Neck Neck: Present: supple, normal ROM - Respiratory Respiratory effort: normal Respiratory: bilateral: diminished, negative: rales, rhonchi, wheezing - Cardiovascular Rhythm: regular Heart Sounds: Present: S1 & S2 - Extremities Extremities: no ischemia, abnormal - Abdominal General gastrointestinal: soft, non-tender, non-distended, normal bowel sounds - Integumentary Integumentary: Present: clear, warm, decreased turgor (Dressing in place in sacral area) - Psychiatric Psychiatric: appropriate mood/affect, cooperative - Neurologic Neurologic: CNII-XII intact, moves all extremities - Constitutional Vitals: Vital Signs - 12hr 09/14/21 09/14/21 09/14/21 02:00 07:40 08:41 Temperature 98.5 F Pulse Rate 92 H Pulse Rate [ 92 H Apical] Respiratory 20 Rate Blood Pressure Blood Pressure 108/61 [Left] O2 Sat by Pulse 100 100 100 Oximetry 09/14/21 09:24 Temperature Pulse Rate 95 H Pulse Rate [ Apical] Respiratory Rate Blood Pressure 104/61 Blood Pressure [Left] O2 Sat by Pulse Oximetry - Labs CBC & Chem 7: 09/17/21 07:11 09/17/21 07:11 Labs: Abnormal lab results 09/13/21 09/13/21 09/13/21 Range/Units 16:15 21:22 Unknown Hgb 8.6 L (11.8-15.2) gm/dl Hct 26.7 L (35.5-45.6) % POC Glucose 168 H 267 H (70-105) mg/dL 09/14/21 09/14/21 Range/Units 07:57 11:44 Hgb (11.8-15.2) gm/dl Hct (35.5-45.6) % POC Glucose 295 H 263 H (70-105) mg/dL HEART Score - HEART Score Troponin: Troponin T 0.013 ng/mL (0.00-0.029) 09/07/21 13:13
--- NOTE | 2021-09-14 13:59 | Progress Note ---
Assessment and Plan Cultures: 09/07/2021 blood culture: GPC, gram-negative diplococci 09/08/2021 urine culture: No significant growth 09/09/2021 deep wound culture: Klebsiella pneumonia, ESBL producing 09/09/2021 surgical culture: Klebsiella, Enterococcus A/P: 60-year-old male with diabetes, cachexia, poor historian was admitted on 09/07/2021 due to hypoglycemia. He reports being bed bound since Mar 2021 after he fell from the stairs: #Sepsis, polymicrobial bacteremia, secondary to necrotic sacral decubitus ulcer: S/p diverting colostomy and debridement of sacral decubitus ulcer on 09/09/2021. S/p debridement of sacral decubitus ulcer and ischial tuberosities on 09/13/2021. #GPC, Gram negative diplococci bacteremia: 2 sets positive. TTE without obvious valvular vegetations. #Diabetes mellitus, uncontrolled #Protein calorie malnutrition #Reactive thrombocytosis Recs: continue with IV meropenem continue IV vancomycin due to GPC/polymicrobial bacteremia f/u repeat blood cultures to ensure clearance of bacteremia prior to discharge Follow-up cultures Guarded prognosis D/W Dr. Chip Browne MD, FACP, [facility] ([facility] O: [phone] F: [phone] C: [phone] Subjective Date of service: 09/14/21 Interval history: No fever. Denies any complaints. Sleeping, easily awakened. Objective - Exam Narrative Exam: Physical Exam: Constitutional: Alert, cooperative. No acute distress Head, Ears, Nose: Normocephalic, atraumatic. External ears, nose normal Eyes: Conjunctivae/corneas clear. No icterus. No ptosis. Neck: Supple, no meningeal signs Cardiovascular: S1, S2 + Respiratory: Good air entry, clear to auscultation bilaterally GI: Soft, non-tender; bowel sounds normal. No peritoneal signs Musculoskeletal: No pedal edema, no cyanosis. Skin: Large sacral wound + dressing + Hem/Lymphatic: No palpable cervical or supraclavicular nodes. No lymphangitis Psych: Mood ok. Affect normal Neurological: Awake, alert. Cachexia - Constitutional Vitals: Vital Signs Temp Pulse Resp BP Pulse Ox 98.5 F 95 H 20 104/61 100 09/14/21 08:41 09/14/21 09:24 09/14/21 08:41 09/14/21 09:24 09/14/21 08:41 Temperature -Last 24 Hours Temperature 98.5 F Temperature 98.0 F Temperature 97.6 F Temperature 97.8 F Temperature 97.7 F - Labs CBC & Chem 7: 09/13/21 Unknown 09/10/21 19:47 Labs: Abnormal lab results 09/13/21 09/13/21 09/13/21 Range/Units 16:15 21:22 Unknown Hgb 8.6 L (11.8-15.2) gm/dl Hct 26.7 L (35.5-45.6) % POC Glucose 168 H 267 H (70-105) mg/dL 09/14/21 09/14/21 Range/Units 07:57 11:44 Hgb (11.8-15.2) gm/dl Hct (35.5-45.6) % POC Glucose 295 H 263 H (70-105) mg/dL
[2021-09-15] MEDS: VANCOMYCIN 750 MG in SODIUM CHLORIDE 0.9% 250ML 250 ML IV SCH ×2 (00:50→12:29)
[2021-09-15] MEDS: D5W/0.9% NACL 1,000 ML IV SCH ×3 (00:58→21:34)
[2021-09-15] MEDS: MEROPENEM/NS 1 GRAM/100 ML 1 GRAM/100 ML BAG IV SCH ×3 (05:10→21:37)
[2021-09-15 06:19] LABS: Basophils # (Auto) 0.1 K/mm3 (0.0-0.1); Basophils % (Auto) 2.4 % (0.0-1.8); Eosinophils # (Auto) 0.2 K/mm3 (0.0-0.4); Hematocrit 20.7 % (35.5-45.6); Hemoglobin 6.8 gm/dl (11.8-15.2); Lymphocytes # (Auto) 1.2 K/mm3 (1.2-5.4); Mean Corpuscular HGB Conc 33 % (32-34); Mean Corpuscular Volume 88 fl (84-94); Monocytes # (Auto) 0.2 K/mm3 (0.0-0.8); Monocytes % (Auto) 4.6 % (0.0-7.3); Platelet Count 524 K/mm3 (140-440); Red Blood Count 2.35 M/mm3 (3.65-5.03); Red Cell Distribution Width 13.8 % (13.2-15.2)
[2021-09-15 06:43] LABS: BUN/Creatinine Ratio 15; Blood Urea Nitrogen 6 mg/dL (9-20); Calcium 7.5 mg/dL (8.4-10.2); Hemolysis Index 2
[2021-09-15] MEDS: INSULIN LISPRO 100 UNIT/ML SUB-Q SCH ×4 (08:48→22:01)
[2021-09-15] MEDS: SODIUM HYPOCHLORITE, DAKIN'S FULL STRENGTH (0.5%) 473 ML TOPICAL SOLN TP SCH ×2 (08:49→21:54)
--- NOTE | 2021-09-15 09:01 | Progress Note ---
Assessment and Plan Cultures: 09/07/2021 blood culture: GPC, gram-negative diplococci 09/08/2021 urine culture: No significant growth 09/09/2021 deep wound culture: Klebsiella pneumonia, ESBL producing 09/09/2021 surgical culture: Klebsiella, Enterococcus 09/14/2021 blood culture: In process A/P: 60-year-old male with diabetes, cachexia, poor historian was admitted on 09/07/2021 due to hypoglycemia. He reports being bed bound since Mar 2021 after he fell from the stairs: #Sepsis, polymicrobial bacteremia, secondary to necrotic sacral decubitus ulcer: S/p diverting colostomy and debridement of sacral decubitus ulcer on 09/09/2021. S/p debridement of sacral decubitus ulcer and ischial tuberosities on 09/13/2021. #GPC, Gram negative diplococci bacteremia: 2 sets positive. TTE without obvious valvular vegetations. #Diabetes mellitus, uncontrolled #Protein calorie malnutrition #Reactive thrombocytosis Recs: -continue with IV meropenem -continue IV vancomycin due to GPC/polymicrobial bacteremia -Once blood cultures from 09/14/2021 are negative at 48 hrs, insert midline. Tentative plan is for 2 weeks of IV meropenem -Case management orders placed for OPAT: IV meropenem 1 g every 8 hours for 2 weeks ending 09/28/2021 Brit Browne MD, FACPNARAYAN [facility] O: [phone] F: [phone] C: [phone] Subjective Date of service: 09/15/21 Interval history: No fever. Denies any complaints. Objective - Exam Narrative Exam: Physical Exam: Constitutional: Alert, cooperative. No acute distress Head, Ears, Nose: Normocephalic, atraumatic. External ears, nose normal Eyes: Conjunctivae/corneas clear. No icterus. No ptosis. Neck: Supple, no meningeal signs Cardiovascular: S1, S2 + Respiratory: Good air entry, clear to auscultation bilaterally GI: Soft, non-tender; bowel sounds normal. No peritoneal signs Musculoskeletal: No pedal edema, no cyanosis. Skin: Large sacral wound + dressing + Hem/Lymphatic: No palpable cervical or supraclavicular nodes. No lymphangitis Psych: Mood ok. Affect normal Neurological: Awake, alert. Cachexia - Constitutional Vitals: Vital Signs Temp Pulse Resp BP Pulse Ox 98.7 F 84 18 115/62 95 09/15/21 05:22 09/15/21 05:22 09/15/21 05:22 09/15/21 05:22 09/15/21 05:22 Temperature -Last 24 Hours Temperature 98.7 F Temperature 98.1 F Temperature 98.8 F - Labs CBC & Chem 7: 09/15/21 05:05 09/15/21 05:05 Labs: Abnormal lab results 09/14/21 09/14/21 09/14/21 Range/Units 11:44 15:57 21:55 WBC (4.5-11.0) K/mm3 RBC (3.65-5.03) M/mm3 Hgb (11.8-15.2) gm/dl Hct (35.5-45.6) % Plt Count (140-440) K/mm3 Baso % (Auto) (0.0-1.8) % Chloride (98-107) mmol/L BUN (9-20) mg/dL Creatinine (0.8-1.3) mg/dL Glucose (75-100) mg/dL POC Glucose 263 H 221 H 174 H (70-105) mg/dL Calcium (8.4-10.2) mg/dL 09/15/21 09/15/21 09/15/21 Range/Units 05:05 05:05 07:47 WBC 4.0 L (4.5-11.0) K/mm3 RBC 2.35 L (3.65-5.03) M/mm3 Hgb 6.8 L (11.8-15.2) gm/dl Hct 20.7 L D (35.5-45.6) % Plt Count 524 H (140-440) K/mm3 Baso % (Auto) 2.4 H (0.0-1.8) % Chloride 107.6 H (98-107) mmol/L BUN 6 L (9-20) mg/dL Creatinine 0.4 L (0.8-1.3) mg/dL Glucose 150 H (75-100) mg/dL POC Glucose 168 H (70-105) mg/dL Calcium 7.5 L (8.4-10.2) mg/dL
[2021-09-15] MEDS: MIDODRINE 10 MG TAB PO SCH ×2 (09:11→17:47)
[2021-09-15] MEDS: HEPARIN 5,000 UNIT/1 ML VIAL SUB-Q SCH ×2 (09:11→21:46)
[2021-09-15] MEDS: FOLIC ACID 1 MG TAB PO SCH (09:11)
[2021-09-15] MEDS: METOPROLOL TARTRATE 25 MG TAB PO SCH ×2 (09:18→21:45)
--- NOTE | 2021-09-15 10:43 | Progress Note ---
Assessment and Plan 60-year-old male with history of diabetes presents to the emergency department complaining of hypoglycemia noticed by family this morning. Patient denies any complaints, currently, however is a poor historian. Patient's daughter reports that the patient had a blood sugar of 55 at home, EMS gave the patient D50, and the blood sugar came up to 122. Patient denies any complaints, but does report that he has not been eating, well. Patient's family thinks that the sacral decubitus that is getting worse is the cause of his hypoglycemia. Patient with Klebsiella pneumonia growing from his sacral wound. Patient status post debridement of sacral decubitus and bilateral pubic tubercle ulcers. Wound VAC is placed. It appears to be holding his suction this morning. We will try to change wound VAC at bedside tomorrow. Continue IV antibiotics for gram-negative rods and bacteria is grown out of the wound. Note from infectious disease indicates IV antibiotics with meropenem required until negative blood cultures. Plan to change wound VAC at bedside tomorrow. Subjective Date of service: 09/15/21 Patient Reports: Positive: no new complaints Objective Vital Signs - 12hr 09/14/21 09/15/21 09/15/21 23:17 05:22 09:18 Temperature 98.7 F Pulse Rate 61 84 94 H Respiratory 18 Rate Blood Pressure 107/63 115/62 86/42 O2 Sat by Pulse 95 Oximetry - Labs 09/15/21 05:05 09/15/21 05:05 Diabetes panel 09/15/21 Range/Units 05:05 Sodium 142 D (137-145) mmol/L Potassium 3.6 (3.6-5.0) mmol/L Chloride 107.6 H (98-107) mmol/L Carbon Dioxide 26 (22-30) mmol/L BUN 6 L (9-20) mg/dL Creatinine 0.4 L (0.8-1.3) mg/dL Glucose 150 H (75-100) mg/dL Calcium 7.5 L (8.4-10.2) mg/dL Calcium panel 09/15/21 Range/Units 05:05 Calcium 7.5 L (8.4-10.2) mg/dL Pituitary panel 09/15/21 Range/Units 05:05 Sodium 142 D (137-145) mmol/L Potassium 3.6 (3.6-5.0) mmol/L Chloride 107.6 H (98-107) mmol/L Carbon Dioxide 26 (22-30) mmol/L BUN 6 L (9-20) mg/dL Creatinine 0.4 L (0.8-1.3) mg/dL Glucose 150 H (75-100) mg/dL Calcium 7.5 L (8.4-10.2) mg/dL Adrenal panel 09/15/21 Range/Units 05:05 Sodium 142 D (137-145) mmol/L Potassium 3.6 (3.6-5.0) mmol/L Chloride 107.6 H (98-107) mmol/L Carbon Dioxide 26 (22-30) mmol/L BUN 6 L (9-20) mg/dL Creatinine 0.4 L (0.8-1.3) mg/dL Glucose 150 H (75-100) mg/dL Calcium 7.5 L (8.4-10.2) mg/dL
--- NOTE | 2021-09-15 16:30 | Progress Note ---
Assessment and Plan Brief history and daily Hospital course; 60-year-old male patient with history of diabetes mellitus was admitted through emergency room with hypoglycemia episode further work-up also consistent with stage IV sacral decubitus ulcer evaluated by surgeon patient underwent surgical debridement of sacral decubitus x2 with wound VAC placement today 09/13/2021 polymicrobial wound cultures positive currently on vancomycin and meropenem 09/08;I also discussed extensively with surgeon Dr. Titus Is planning surgical debridement tomorrow if patient is stable N.p.o. from midnight 09/09; patient is n.p.o. status, scheduled for surgical debridement Surgeon requested echocardiogram, echo ordered We will also add PT, INR and PTT 09/10; postop care per surgical team, patient tolerating soft diet Mild hypokalemia, replenished with KCl and follow electrolytes Surgeon is planning additional sacral wound debridement and wound VAC on Monday, 09/14/1909/11; patient comfortable, no new complaints Surgery following, planning additional wound debridement wound VAC placement on 09/13/202109/12; wound cultures positive for Klebsiella pneumonia sensitive to imipenem Antibiotics changed to imipenem, ID consulted Patient scheduled for surgical debridement and possible wound VAC placement procedure tomorrow, Patient is n.p.o. from midnight 09/13; ID adjusted antibiotics currently patient is on vancomycin and meropenem Follow culture sensitivities, follow surgeon for rest of the plan 09/14; placed on wound VAC, final wound culture pending, continue vancomycin and meropenem 09/15: Patient also had positive blood culture with gram-negative rods and gram- positive cocci. ID recommended to continue meropenem and vancomycin. Patient will need IV antibiotics and wound VAC on discharge. Continue to follow clinically and wait for IDs final recommendation Assessment and plan: -- Sacral decubitus ulcer, stage IV- Severe sacral decubitus ulcer about 12 cm [place] VIII centimeters X depth of about 2 cm with eschar formation over half of the decubitus ulcer Evaluated by surgeon patient underwent surgical procedure 09/09/2021 and another debridement with wound VAC placement on 09/13/21 s/pPatient status post laparoscopic-assisted diversion with end sigmoid colostomy and extensive debridement of sacral decubitus. Ostomy is functioning, patient is tolerating soft diet Postop care per surgeon, continue wound care, antibiotics, dietary supplements --wound cultures Klebsiella pneumonia; Gram-negative rods Enterococcus species Currently on meropenem and vancomycin, ID following Continue supportive care, wound care, pain medications -- Bacteremia with gram-negative shahram and gram-positive cocci Continue empiric antibiotics per ID recommendation -- Hypoglycemia/resolved Persistent hypoglycemia IV D5W with normal saline Probably due to poor oral intake D50 W and glucagon as necessary Etiology of hypoglycemia unclear Poor p.o. intake --Hyponatremia Mild improvement Na improved from 128-132 this morning Continue normal saline closely monitor electrolytes --Anemia[dropped from 10.2-8.6 since admission] Closely monitor H&H, transfuse as needed No external evidence of bleeding, stool for occult blood Closely monitor -- Severe protein calorie malnutrition With hypoalbuminemia, nutrition supplements Nutrition consult and supportive care --Severe hyper anemia; albumin2.2 nutrition supplements, nutrition consult Supportive care -- DVT prophylaxis Subcu heparin and GI prophylaxis -- Advance care planning Could not be done because of logistics Plan of care reviewed with the patient and his nurse Subjective Date of service: 09/15/21 Interval history: Patient seen and examined. Medical records and medication list reviewed. No acute event overnight noted by the RN. Patient denies any chest pain or difficulty breathing. Patient is tolerating diet. Discussed plan of care at bedside with patient. Objective - Exam Narrative Exam: General appearance: Present: no acute distress, well-nourished - EENT Eyes: Present: PERRL, EOM intact - Neck Neck: Present: supple, normal ROM - Respiratory Respiratory effort: normal Respiratory: bilateral: diminished, negative: rales, rhonchi, wheezing - Cardiovascular Rhythm: regular Heart Sounds: Present: S1 & S2 - Extremities Extremities: no ischemia, abnormal - Abdominal General gastrointestinal: soft, non-tender, non-distended, normal bowel sounds - Integumentary Integumentary: Present: clear, warm, decreased turgor (Dressing in place in sacral area) - Psychiatric Psychiatric: appropriate mood/affect, cooperative - Neurologic Neurologic: CNII-XII intact, moves all extremities - Constitutional Vitals: Vital Signs - 12hr 09/15/21 09/15/21 09/15/21 05:22 09:18 11:35 Temperature 98.7 F 98.2 F Pulse Rate 84 94 H 89 Respiratory 18 18 Rate Blood Pressure 115/62 86/42 Blood Pressure 98/49 [Left] O2 Sat by Pulse 95 94 Oximetry - Labs CBC & Chem 7: 09/17/21 07:11 09/17/21 07:11 Labs: Abnormal lab results 09/14/21 09/15/21 09/15/21 Range/Units 21:55 05:05 05:05 WBC 4.0 L (4.5-11.0) K/mm3 RBC 2.35 L (3.65-5.03) M/mm3 Hgb 6.8 L (11.8-15.2) gm/dl Hct 20.7 L D (35.5-45.6) % Plt Count 524 H (140-440) K/mm3 Baso % (Auto) 2.4 H (0.0-1.8) % Chloride 107.6 H (98-107) mmol/L BUN 6 L (9-20) mg/dL Creatinine 0.4 L (0.8-1.3) mg/dL Glucose 150 H (75-100) mg/dL POC Glucose 174 H (70-105) mg/dL Calcium 7.5 L (8.4-10.2) mg/dL 09/15/21 09/15/21 Range/Units 07:47 11:14 WBC (4.5-11.0) K/mm3 RBC (3.65-5.03) M/mm3 Hgb (11.8-15.2) gm/dl Hct (35.5-45.6) % Plt Count (140-440) K/mm3 Baso % (Auto) (0.0-1.8) % Chloride (98-107) mmol/L BUN (9-20) mg/dL Creatinine (0.8-1.3) mg/dL Glucose (75-100) mg/dL POC Glucose 168 H 110 H (70-105) mg/dL Calcium (8.4-10.2) mg/dL HEART Score - HEART Score Troponin: Troponin T 0.013 ng/mL (0.00-0.029) 09/07/21 13:13
[2021-09-16] MEDS: VANCOMYCIN 750 MG in SODIUM CHLORIDE 0.9% 250ML 250 ML IV SCH ×2 (00:46→12:26)
[2021-09-16] MEDS: MEROPENEM/NS 1 GRAM/100 ML 1 GRAM/100 ML BAG IV SCH ×3 (05:46→22:30)
[2021-09-16] MEDS: SODIUM HYPOCHLORITE, DAKIN'S FULL STRENGTH (0.5%) 473 ML TOPICAL SOLN TP SCH ×2 (09:15→22:27)
[2021-09-16] MEDS: MIDODRINE 10 MG TAB PO SCH ×2 (09:16→18:28)
[2021-09-16] MEDS: INSULIN LISPRO 100 UNIT/ML SUB-Q SCH ×4 (09:16→22:31)
[2021-09-16] MEDS: FOLIC ACID 1 MG TAB PO SCH (09:19)
[2021-09-16] MEDS: HEPARIN 5,000 UNIT/1 ML VIAL SUB-Q SCH ×2 (09:19→22:30)
[2021-09-16] MEDS: METOPROLOL TARTRATE 25 MG TAB PO SCH ×2 (09:30→22:31)
[2021-09-16] MEDS: D5W/0.9% NACL 1,000 ML IV SCH (12:27)
--- NOTE | 2021-09-16 13:20 | Post Operative Note ---
Pre-op diagnosis: Sacral decubitus 15.1 x 13.3 x 1.5 cm Post-op diagnosis: other (Sacral decubitus status postdebridement 15.1 x 13.3 x 1.7 cm) Findings: Sacral decubitus with good granulation tissues and perimeter. Center of the wound showing exposed periosteum and of the sacrum and coccyx. Wound debrided with scissors. Wound size is 200 cm. Wound VAC is placed postprocedure. Procedure: Debridement of sacral decubitus and placement of wound VAC Anesthesia: none Surgeon: RA CONN Estimated blood loss: minimal Pathology: none Specimen disposition: discarded Condition: stable Disposition: floor
--- NOTE | 2021-09-16 14:15 | Progress Note ---
Assessment and Plan Cultures: 09/07/2021 blood culture: GPC, gram-negative diplococci - Isolate sent to reference lab for further identification 09/08/2021 urine culture: No significant growth 09/09/2021 deep wound culture: Klebsiella pneumonia, ESBL producing 09/09/2021 surgical culture: Klebsiella, Enterococcus 09/14/2021 blood culture: no growth so far A/P: 60-year-old male with diabetes, cachexia, poor historian was admitted on 09/07/2021 due to hypoglycemia. He reports being bed bound since Mar 2021 after he fell from the stairs: #Sepsis, polymicrobial bacteremia, secondary to necrotic sacral decubitus ulcer: S/p diverting colostomy and debridement of sacral decubitus ulcer on 09/09/2021. S/p debridement of sacral decubitus ulcer and ischial tuberosities on 09/13/2021. Underwent debridement of sacral decubitus and placement of wound VAC on 09/16/2021. #GPC, Gram negative diplococci bacteremia: 2 sets positive. TTE without obvious valvular vegetations. #Diabetes mellitus, uncontrolled #Protein calorie malnutrition #Reactive thrombocytosis Recs: -continue with IV meropenem -GPC isolate in blood sent to reference lab for further identification, likely won't result till late next week. Repeat blood cultures are negative, Vancomycin discontinued -Repeat cultures are negative, OK to insert PICC line, order placed -Case management orders placed for OPAT: IV meropenem 1 g every 8 hours for 2 weeks ending 09/28/2021 Brit Browne MD, FACPNARAYAN [facility] O: [phone] F: [phone] C: [phone] Subjective Date of service: 09/16/21 Interval history: No fever. Denies any complaints. Underwent debridement of sacral decubitus and placement of wound VAC. Objective - Exam Narrative Exam: Physical Exam: Constitutional: Alert, cooperative. No acute distress Head, Ears, Nose: Normocephalic, atraumatic. External ears, nose normal Eyes: Conjunctivae/corneas clear. No icterus. No ptosis. Neck: Supple, no meningeal signs Cardiovascular: S1, S2 + Respiratory: Good air entry, clear to auscultation bilaterally GI: Soft, non-tender; bowel sounds normal. No peritoneal signs Musculoskeletal: No pedal edema, no cyanosis. Skin: Large sacral wound + dressing + Hem/Lymphatic: No palpable cervical or supraclavicular nodes. No lymphangitis Psych: Mood ok. Affect normal Neurological: Awake, alert. Cachexia - Constitutional Vitals: Vital Signs Temp Pulse Resp BP Pulse Ox 98.1 F 55 L 18 104/56 91 09/16/21 11:41 09/16/21 11:41 09/16/21 11:41 09/16/21 11:41 09/16/21 11:41 Temperature -Last 24 Hours Temperature 98.1 F Temperature 98.2 F Temperature 99.3 F Temperature 99.3 F - Labs CBC & Chem 7: 09/15/21 05:05 09/15/21 05:05 Labs: Abnormal lab results 09/15/21 09/15/21 09/16/21 Range/Units 16:29 21:43 07:50 POC Glucose 116 H 217 H 114 H (70-105) mg/dL
[2021-09-16] MEDS ORDERED: SODIUM CHLORIDE 0.9% 500 ML 500 ML IV SCH (16:23)
--- NOTE | 2021-09-16 16:23 | Progress Note ---
Assessment and Plan Brief history and daily Hospital course; 60-year-old male patient with history of diabetes mellitus was admitted through emergency room with hypoglycemia episode further work-up also consistent with stage IV sacral decubitus ulcer evaluated by surgeon patient underwent surgical debridement of sacral decubitus x2 with wound VAC placement today 09/13/2021 polymicrobial wound cultures positive currently on vancomycin and meropenem 09/08;I also discussed extensively with surgeon Dr. Titus Is planning surgical debridement tomorrow if patient is stable N.p.o. from midnight 09/09; patient is n.p.o. status, scheduled for surgical debridement Surgeon requested echocardiogram, echo ordered We will also add PT, INR and PTT 09/10; postop care per surgical team, patient tolerating soft diet Mild hypokalemia, replenished with KCl and follow electrolytes Surgeon is planning additional sacral wound debridement and wound VAC on Monday, 09/14/1909/11; patient comfortable, no new complaints Surgery following, planning additional wound debridement wound VAC placement on 09/13/202109/12; wound cultures positive for Klebsiella pneumonia sensitive to imipenem Antibiotics changed to imipenem, ID consulted Patient scheduled for surgical debridement and possible wound VAC placement procedure tomorrow, Patient is n.p.o. from midnight 09/13; ID adjusted antibiotics currently patient is on vancomycin and meropenem Follow culture sensitivities, follow surgeon for rest of the plan 09/14; placed on wound VAC, final wound culture pending, continue vancomycin and meropenem 09/15: Patient also had positive blood culture with gram-negative rods and gram- positive cocci. ID recommended to continue meropenem and vancomycin. Patient will need IV antibiotics and wound VAC on discharge. Continue to follow clinically and wait for IDs final recommendation 09/16: Patient had another debridement today. Patient need IV meropenem for 2 weeks. Also need wound VAC on discharge. Assessment and plan: -- Sacral decubitus ulcer, stage IV- Severe sacral decubitus ulcer about 12 cm [place] VIII centimeters X depth of about 2 cm with eschar formation over half of the decubitus ulcer Evaluated by surgeon patient underwent surgical procedure 09/09/2021 and another debridement with wound VAC placement on 09/13/21 s/pPatient status post laparoscopic-assisted diversion with end sigmoid colostomy and extensive debridement of sacral decubitus. Ostomy is functioning, patient is tolerating soft diet Postop care per surgeon, continue wound care, antibiotics, dietary supplements --wound cultures Klebsiella pneumonia; Gram-negative rods Enterococcus species Currently on meropenem, s/p vancomycin, ID following Continue supportive care, wound care, pain medications -- Bacteremia with gram-negative shahram and gram-positive cocci Continue empiric antibiotics per ID recommendation -- Hypoglycemia/resolved Persistent hypoglycemia IV D5W with normal saline Probably due to poor oral intake D50 W and glucagon as necessary Etiology of hypoglycemia unclear Poor p.o. intake --Hyponatremia Mild improvement Na improved from 128-132 this morning Continue normal saline closely monitor electrolytes --Anemia[dropped from 10.2-8.6 since admission] Closely monitor H&H, transfuse as needed No external evidence of bleeding, stool for occult blood Closely monitor -- Severe protein calorie malnutrition With hypoalbuminemia, nutrition supplements Nutrition consult and supportive care --Severe hyper anemia; albumin2.2 nutrition supplements, nutrition consult Supportive care -- DVT prophylaxis Subcu heparin and GI prophylaxis -- Advance care planning Could not be done because of logistics Plan of care reviewed with the patient and his nurse Subjective Date of service: 09/16/21 Interval history: Patient seen and examined. Medical records and medication list reviewed. No acute event overnight noted by the RN. Patient denies any chest pain or difficulty breathing. Patient is tolerating diet. Discussed plan of care at bedside with patient. Objective - Exam Narrative Exam: General appearance: Present: no acute distress, well-nourished - EENT Eyes: Present: PERRL, EOM intact - Neck Neck: Present: supple, normal ROM - Respiratory Respiratory effort: normal Respiratory: bilateral: diminished, negative: rales, rhonchi, wheezing - Cardiovascular Rhythm: regular Heart Sounds: Present: S1 & S2 - Extremities Extremities: no ischemia, abnormal - Abdominal General gastrointestinal: soft, non-tender, non-distended, normal bowel sounds - Integumentary Integumentary: Present: clear, warm, decreased turgor (Dressing in place in sacral area) - Psychiatric Psychiatric: appropriate mood/affect, cooperative - Neurologic Neurologic: CNII-XII intact, moves all extremities - Constitutional Vitals: Vital Signs - 12hr 09/16/21 09/16/21 09/16/21 09:27 09:30 11:41 Temperature 98.1 F Pulse Rate 88 89 55 L Respiratory 18 Rate Blood Pressure 103/60 103/60 104/56 O2 Sat by Pulse 97 91 Oximetry - Labs CBC & Chem 7: 09/17/21 07:11 09/17/21 07:11 Labs: Abnormal lab results 09/15/21 09/15/21 09/16/21 Range/Units 16:29 21:43 07:50 POC Glucose 116 H 217 H 114 H (70-105) mg/dL HEART Score - HEART Score Troponin: Troponin T 0.013 ng/mL (0.00-0.029) 09/07/21 13:13
[2021-09-17] MEDS: VANCOMYCIN 750 MG in SODIUM CHLORIDE 0.9% 250ML 250 ML IV SCH ×2 (01:35→13:31)
[2021-09-17] MEDS: MEROPENEM/NS 1 GRAM/100 ML 1 GRAM/100 ML BAG IV SCH ×3 (05:38→23:21)
[2021-09-17 07:29] LABS: Basophils % (Auto) 0.2 % (0.0-1.8); Eosinophils # (Auto) 0.1 K/mm3 (0.0-0.4); Eosinophils % (Auto) 2.7 % (0.0-4.3); Hematocrit 26.2 % (35.5-45.6); Hemoglobin 8.9 gm/dl (11.8-15.2); Lymphocytes # (Auto) 1.4 K/mm3 (1.2-5.4); Lymphocytes % (Auto) 27.8 % (13.4-35.0); Mean Corpuscular HGB Conc 34 % (32-34); Mean Corpuscular Volume 88 fl (84-94); Monocytes # (Auto) 0.2 K/mm3 (0.0-0.8); Monocytes % (Auto) 4.3 % (0.0-7.3); Platelet Count 467 K/mm3 (140-440); Red Blood Count 2.97 M/mm3 (3.65-5.03); Red Cell Distribution Width 13.7 % (13.2-15.2)
[2021-09-17 07:45] LABS: Blood Urea Nitrogen 9 mg/dL (9-20); Calcium 7.4 mg/dL (8.4-10.2); Hemolysis Index 4
[2021-09-17 07:47] LABS: BUN/Creatinine Ratio 23
--- NOTE | 2021-09-17 09:01 | Progress Note ---
Assessment and Plan 60-year-old male with history of diabetes presents to the emergency department complaining of hypoglycemia noticed by family this morning. Patient denies any complaints, currently, however is a poor historian. Patient's daughter reports that the patient had a blood sugar of 55 at home, EMS gave the patient D50, and the blood sugar came up to 122. Patient denies any complaints, but does report that he has not been eating, well. Patient's family thinks that the sacral decubitus that is getting worse is the cause of his hypoglycemia. Patient with Klebsiella pneumonia growing from his sacral wound. Note from infectious disease indicates IV antibiotics with meropenem required until negative blood cultures. Plan to change wound VAC at bedside tomorrow. Patient status post debridement of sacral decubitus and bilateral pubic tubercle ulcers. Wound VAC is replaced. Wound vac changed yesterday, sacrum continues to fail to granulate. Pt will need skin substitute with theragenesis to avoid dissecation of sacrum and potential osteomyelitis. Subjective Date of service: 09/17/21 Patient Reports: Positive: no new complaints Narrative: Patient is status post debridement of sacral decubitus yesterday and changing of the wound VAC. Patient remains with exposed sacrum to the level of periosteum no evidence of granulation over this. He is alert concerned and aware of his surroundings but does not appear to be able to move himself to offload the areas involved. He also has the beginnings of ischial tuberosity ulcerations. Infectious disease requesting continued IV meropenem. Also isolate from bacteremia has been sent off to the reference lab for further identification and sensitivities. Objective Vital Signs - 12hr 09/16/21 09/17/21 09/17/21 21:15 03:47 04:02 Temperature 99.7 F H 99.2 F 98.6 F Pulse Rate 94 H 82 82 Respiratory 16 14 14 Rate Blood Pressure 114/61 99/62 111/62 O2 Sat by Pulse 98 96 97 Oximetry 09/17/21 09/17/21 09/17/21 04:32 05:02 05:05 Temperature 98.9 F 99.2 F 99.4 F Pulse Rate 75 75 74 Respiratory 14 14 14 Rate Blood Pressure 118/65 112/72 112/72 O2 Sat by Pulse 100 100 100 Oximetry - Labs 09/17/21 07:11 09/17/21 07:11 Diabetes panel 09/17/21 Range/Units 07:11 Sodium 139 (137-145) mmol/L Potassium 3.4 L (3.6-5.0) mmol/L Chloride 109.6 H (98-107) mmol/L Carbon Dioxide 25 (22-30) mmol/L BUN 9 (9-20) mg/dL Creatinine 0.4 L (0.8-1.3) mg/dL Glucose 143 H (75-100) mg/dL Calcium 7.4 L (8.4-10.2) mg/dL Calcium panel 09/17/21 Range/Units 07:11 Calcium 7.4 L (8.4-10.2) mg/dL Pituitary panel 09/17/21 Range/Units 07:11 Sodium 139 (137-145) mmol/L Potassium 3.4 L (3.6-5.0) mmol/L Chloride 109.6 H (98-107) mmol/L Carbon Dioxide 25 (22-30) mmol/L BUN 9 (9-20) mg/dL Creatinine 0.4 L (0.8-1.3) mg/dL Glucose 143 H (75-100) mg/dL Calcium 7.4 L (8.4-10.2) mg/dL Adrenal panel 09/17/21 Range/Units 07:11 Sodium 139 (137-145) mmol/L Potassium 3.4 L (3.6-5.0) mmol/L Chloride 109.6 H (98-107) mmol/L Carbon Dioxide 25 (22-30) mmol/L BUN 9 (9-20) mg/dL Creatinine 0.4 L (0.8-1.3) mg/dL Glucose 143 H (75-100) mg/dL Calcium 7.4 L (8.4-10.2) mg/dL
[2021-09-17] MEDS: SODIUM HYPOCHLORITE, DAKIN'S FULL STRENGTH (0.5%) 473 ML TOPICAL SOLN TP SCH (09:36)
[2021-09-17] MEDS: INSULIN LISPRO 100 UNIT/ML SUB-Q SCH ×4 (09:37→23:19)
[2021-09-17] MEDS: METOPROLOL TARTRATE 25 MG TAB PO SCH ×2 (09:38→23:21)
[2021-09-17] MEDS: HEPARIN 5,000 UNIT/1 ML VIAL SUB-Q SCH ×2 (09:39→23:20)
[2021-09-17] MEDS: MIDODRINE 10 MG TAB PO SCH ×2 (09:39→17:00)
[2021-09-17] MEDS: FOLIC ACID 1 MG TAB PO SCH (09:39)
--- NOTE | 2021-09-17 11:11 | Progress Note ---
Assessment and Plan Cultures: 09/07/2021 blood culture: GPC, gram-negative diplococci - Isolate sent to reference lab for further identification 09/08/2021 urine culture: No significant growth 09/09/2021 deep wound culture: Klebsiella pneumonia, ESBL producing 09/09/2021 surgical culture: Klebsiella, Enterococcus 09/14/2021 blood culture: no growth so far A/P: 60-year-old male with diabetes, cachexia, poor historian was admitted on 09/07/2021 due to hypoglycemia. He reports being bed bound since Mar 2021 after he fell from the stairs: #Sepsis, polymicrobial bacteremia, secondary to necrotic sacral decubitus ulcer: S/p diverting colostomy and debridement of sacral decubitus ulcer on 09/09/2021. S/p debridement of sacral decubitus ulcer and ischial tuberosities on 09/13/2021. Underwent debridement of sacral decubitus and placement of wound VAC on 09/16/2021. #GPC, Gram negative diplococci bacteremia: 2 sets positive. TTE without obvious valvular vegetations. #Diabetes mellitus, uncontrolled #Protein calorie malnutrition #Reactive thrombocytosis Recs: -continue with IV meropenem. Getting midline placed -GPC isolate in blood sent to reference lab for further identification, likely won't result till late next week. Repeat blood cultures are negative -Case management orders placed for OPAT: IV meropenem 1 g every 8 hours for 2 weeks ending 09/28/2021 -OK for discharge from ID standpoint Will sign off. Brit Browne MD, F[facility]ARAYAN [facility] O: [phone] F: [phone] C: [phone] Subjective Date of service: 09/17/21 Interval history: No fever. Denies any complaints, hoping he can be discharged soon. Objective - Exam Narrative Exam: Physical Exam: Constitutional: Alert, cooperative. No acute distress Head, Ears, Nose: Normocephalic, atraumatic. External ears, nose normal Eyes: Conjunctivae/corneas clear. No icterus. No ptosis. Neck: Supple, no meningeal signs Cardiovascular: S1, S2 + Respiratory: Good air entry, clear to auscultation bilaterally GI: Soft, non-tender; bowel sounds normal. No peritoneal signs Musculoskeletal: No pedal edema, no cyanosis. Skin: Large sacral wound + dressing + Hem/Lymphatic: No palpable cervical or supraclavicular nodes. No lymphangitis Psych: Mood ok. Affect normal Neurological: Awake, alert. Cachexia - Constitutional Vitals: Vital Signs Temp Pulse Resp BP Pulse Ox 99.1 F 80 16 123/68 98 09/17/21 09:31 09/17/21 09:38 09/17/21 09:31 09/17/21 09:38 09/17/21 09:31 Temperature -Last 24 Hours Temperature 99.1 F Temperature 99.4 F Temperature 99.2 F Temperature 98.9 F Temperature 98.6 F Temperature 99.2 F Temperature 99.7 F Temperature 98.7 F Temperature 98.1 F - Labs CBC & Chem 7: 09/17/21 07:11 09/17/21 07:11 Labs: Abnormal lab results 09/16/21 09/16/21 09/16/21 Range/Units 17:11 19:58 21:18 RBC (3.65-5.03) M/mm3 Hgb (11.8-15.2) gm/dl Hct (35.5-45.6) % Plt Count (140-440) K/mm3 Potassium (3.6-5.0) mmol/L Chloride (98-107) mmol/L Creatinine (0.8-1.3) mg/dL Glucose (75-100) mg/dL POC Glucose 180 H 205 H (70-105) mg/dL Calcium (8.4-10.2) mg/dL Crossmatch See Detail 09/17/21 09/17/21 09/17/21 Range/Units 07:11 07:11 07:40 RBC 2.97 L (3.65-5.03) M/mm3 Hgb 8.9 L (11.8-15.2) gm/dl Hct 26.2 L (35.5-45.6) % Plt Count 467 H (140-440) K/mm3 Potassium 3.4 L (3.6-5.0) mmol/L Chloride 109.6 H (98-107) mmol/L Creatinine 0.4 L (0.8-1.3) mg/dL Glucose 143 H (75-100) mg/dL POC Glucose 133 H (70-105) mg/dL Calcium 7.4 L (8.4-10.2) mg/dL Crossmatch
[2021-09-17] MEDS ORDERED: POTASSIUM CHLORIDE ER 20 MEQ TAB PO ONE (16:16)
--- NOTE | 2021-09-17 16:16 | Progress Note ---
Assessment and Plan Brief history and daily Hospital course; 60-year-old male patient with history of diabetes mellitus was admitted through emergency room with hypoglycemia episode further work-up also consistent with stage IV sacral decubitus ulcer evaluated by surgeon patient underwent surgical debridement of sacral decubitus x2 with wound VAC placement today 09/13/2021 polymicrobial wound cultures positive currently on vancomycin and meropenem 09/08;I also discussed extensively with surgeon Dr. Titus Is planning surgical debridement tomorrow if patient is stable N.p.o. from midnight 09/09; patient is n.p.o. status, scheduled for surgical debridement Surgeon requested echocardiogram, echo ordered We will also add PT, INR and PTT 09/10; postop care per surgical team, patient tolerating soft diet Mild hypokalemia, replenished with KCl and follow electrolytes Surgeon is planning additional sacral wound debridement and wound VAC on Monday, 09/14/1909/11; patient comfortable, no new complaints Surgery following, planning additional wound debridement wound VAC placement on 09/13/202109/12; wound cultures positive for Klebsiella pneumonia sensitive to imipenem Antibiotics changed to imipenem, ID consulted Patient scheduled for surgical debridement and possible wound VAC placement procedure tomorrow, Patient is n.p.o. from midnight 09/13; ID adjusted antibiotics currently patient is on vancomycin and meropenem Follow culture sensitivities, follow surgeon for rest of the plan 09/14; placed on wound VAC, final wound culture pending, continue vancomycin and meropenem 09/15: Patient also had positive blood culture with gram-negative rods and gram- positive cocci. ID recommended to continue meropenem and vancomycin. Patient will need IV antibiotics and wound VAC on discharge. Continue to follow clinically and wait for IDs final recommendation 09/16: Patient had another debridement today. Patient need IV meropenem for 2 weeks. Also need wound VAC on discharge. 09/17: -continue with IV meropenem. Getting midline placed -GPC isolate in blood sent to reference lab for further identification, likely won't result till late next week. Repeat blood cultures are negative -Case management orders placed for OPAT: IV meropenem 1 g every 8 hours for 2 weeks ending 09/28/2021 -Discharge pending on wound VAC set up Assessment and plan: -- Sacral decubitus ulcer, stage IV- Severe sacral decubitus ulcer about 12 cm [place] VIII centimeters X depth of about 2 cm with eschar formation over half of the decubitus ulcer Evaluated by surgeon patient underwent surgical procedure 09/09/2021 and another debridement with wound VAC placement on 09/13/21 s/pPatient status post laparoscopic-assisted diversion with end sigmoid colostomy and extensive debridement of sacral decubitus. Ostomy is functioning, patient is tolerating soft diet Postop care per surgeon, continue wound care, antibiotics, dietary supplements --wound cultures Klebsiella pneumonia; Gram-negative rods Enterococcus species Currently on meropenem, s/p vancomycin, ID following Continue supportive care, wound care, pain medications -- Bacteremia with gram-negative shahram and gram-positive cocci Continue empiric antibiotics per ID recommendation -- Hypoglycemia/resolved Persistent hypoglycemia IV D5W with normal saline Probably due to poor oral intake D50 W and glucagon as necessary Etiology of hypoglycemia unclear Poor p.o. intake --Hyponatremia Mild improvement Na improved from 128-132 this morning Continue normal saline closely monitor electrolytes --Anemia[dropped from 10.2-8.6 since admission] Closely monitor H&H, transfuse as needed No external evidence of bleeding, stool for occult blood Closely monitor -- Severe protein calorie malnutrition With hypoalbuminemia, nutrition supplements Nutrition consult and supportive care --Severe hyper anemia; albumin2.2 nutrition supplements, nutrition consult Supportive care -- DVT prophylaxis Subcu heparin and GI prophylaxis -- Advance care planning Could not be done because of logistics Plan of care reviewed with the patient and his nurse Subjective Date of service: 09/17/21 Interval history: Patient seen and examined. Medical records and medication list reviewed. No acute event overnight noted by the RN. Patient denies any chest pain or difficulty breathing. Patient is tolerating diet. Discussed plan of care at bedside with patient. Objective - Exam Narrative Exam: General appearance: Present: no acute distress, well-nourished - EENT Eyes: Present: PERRL, EOM intact - Neck Neck: Present: supple, normal ROM - Respiratory Respiratory effort: normal Respiratory: bilateral: diminished, negative: rales, rhonchi, wheezing - Cardiovascular Rhythm: regular Heart Sounds: Present: S1 & S2 - Extremities Extremities: no ischemia, abnormal - Abdominal General gastrointestinal: soft, non-tender, non-distended, normal bowel sounds - Integumentary Integumentary: Present: clear, warm, decreased turgor (Dressing in place in sacral area) - Psychiatric Psychiatric: appropriate mood/affect, cooperative - Neurologic Neurologic: CNII-XII intact, moves all extremities - Constitutional Vitals: Vital Signs - 12hr 09/17/21 09/17/21 09/17/21 04:32 05:02 05:05 Temperature 98.9 F 99.2 F 99.4 F Pulse Rate 75 75 74 Respiratory 14 14 14 Rate Blood Pressure 118/65 112/72 112/72 O2 Sat by Pulse 100 100 100 Oximetry 09/17/21 09/17/21 09:31 09:38 Temperature 99.1 F Pulse Rate 80 80 Respiratory 16 Rate Blood Pressure 123/68 123/68 O2 Sat by Pulse 98 Oximetry - Labs CBC & Chem 7: 09/17/21 07:11 09/17/21 07:11 Labs: Abnormal lab results 09/16/21 09/16/21 09/16/21 Range/Units 17:11 19:58 21:18 RBC (3.65-5.03) M/mm3 Hgb (11.8-15.2) gm/dl Hct (35.5-45.6) % Plt Count (140-440) K/mm3 Potassium (3.6-5.0) mmol/L Chloride (98-107) mmol/L Creatinine (0.8-1.3) mg/dL Glucose (75-100) mg/dL POC Glucose 180 H 205 H (70-105) mg/dL Calcium (8.4-10.2) mg/dL Crossmatch See Detail 09/17/21 09/17/21 09/17/21 Range/Units 07:11 07:11 07:40 RBC 2.97 L (3.65-5.03) M/mm3 Hgb 8.9 L (11.8-15.2) gm/dl Hct 26.2 L (35.5-45.6) % Plt Count 467 H (140-440) K/mm3 Potassium 3.4 L (3.6-5.0) mmol/L Chloride 109.6 H (98-107) mmol/L Creatinine 0.4 L (0.8-1.3) mg/dL Glucose 143 H (75-100) mg/dL POC Glucose 133 H (70-105) mg/dL Calcium 7.4 L (8.4-10.2) mg/dL Crossmatch 09/17/21 Range/Units 11:28 RBC (3.65-5.03) M/mm3 Hgb (11.8-15.2) gm/dl Hct (35.5-45.6) % Plt Count (140-440) K/mm3 Potassium (3.6-5.0) mmol/L Chloride (98-107) mmol/L Creatinine (0.8-1.3) mg/dL Glucose (75-100) mg/dL POC Glucose 157 H (70-105) mg/dL Calcium (8.4-10.2) mg/dL Crossmatch HEART Score - HEART Score Troponin: Troponin T 0.013 ng/mL (0.00-0.029) 09/07/21 13:13
[2021-09-18] MEDS: MEROPENEM/NS 1 GRAM/100 ML 1 GRAM/100 ML BAG IV SCH ×3 (05:42→21:35)
[2021-09-18] MEDS: INSULIN LISPRO 100 UNIT/ML SUB-Q SCH ×4 (08:43→22:41)
[2021-09-18] MEDS: MIDODRINE 10 MG TAB PO SCH ×2 (09:09→17:04)
[2021-09-18] MEDS: HEPARIN 5,000 UNIT/1 ML VIAL SUB-Q SCH ×2 (09:10→21:35)
[2021-09-18] MEDS: METOPROLOL TARTRATE 25 MG TAB PO SCH ×2 (09:10→21:45)
[2021-09-18] MEDS: FOLIC ACID 1 MG TAB PO SCH (09:10)
--- NOTE | 2021-09-18 12:48 | Progress Note ---
Assessment and Plan Brief history and daily Hospital course; 60-year-old male patient with history of diabetes mellitus was admitted through emergency room with hypoglycemia episode further work-up also consistent with stage IV sacral decubitus ulcer evaluated by surgeon patient underwent surgical debridement of sacral decubitus x2 with wound VAC placement today 09/13/2021 polymicrobial wound cultures positive currently on vancomycin and meropenem 09/08;I also discussed extensively with surgeon Dr. Titus Is planning surgical debridement tomorrow if patient is stable N.p.o. from midnight 09/09; patient is n.p.o. status, scheduled for surgical debridement Surgeon requested echocardiogram, echo ordered We will also add PT, INR and PTT 09/10; postop care per surgical team, patient tolerating soft diet Mild hypokalemia, replenished with KCl and follow electrolytes Surgeon is planning additional sacral wound debridement and wound VAC on Monday, 09/14/1909/11; patient comfortable, no new complaints Surgery following, planning additional wound debridement wound VAC placement on 09/13/202109/12; wound cultures positive for Klebsiella pneumonia sensitive to imipenem Antibiotics changed to imipenem, ID consulted Patient scheduled for surgical debridement and possible wound VAC placement procedure tomorrow, Patient is n.p.o. from midnight 09/13; ID adjusted antibiotics currently patient is on vancomycin and meropenem Follow culture sensitivities, follow surgeon for rest of the plan 09/14; placed on wound VAC, final wound culture pending, continue vancomycin and meropenem 09/15: Patient also had positive blood culture with gram-negative rods and gram- positive cocci. ID recommended to continue meropenem and vancomycin. Patient will need IV antibiotics and wound VAC on discharge. Continue to follow clinically and wait for IDs final recommendation 09/16: Patient had another debridement today. Patient need IV meropenem for 2 weeks. Also need wound VAC on discharge. 09/17: -continue with IV meropenem. Getting midline placed -GPC isolate in blood sent to reference lab for further identification, likely won't result till late next week. Repeat blood cultures are negative -Case management orders placed for OPAT: IV meropenem 1 g every 8 hours for 2 weeks ending 09/28/2021 -Discharge pending on wound VAC set up 09/18/21: midline placed, discharge pending on home wound vac delivery/set up. cont iv abx, need IV meropenem 1 g every 8 hours for 2 weeks ending 09/28/2021. cont to follow Assessment and plan: -- Sacral decubitus ulcer, stage IV- Severe sacral decubitus ulcer about 12 cm [place] VIII centimeters X depth of about 2 cm with eschar formation over half of the decubitus ulcer Evaluated by surgeon patient underwent surgical procedure 09/09/2021, another debridement with wound VAC placement on 09/13/21, last debridement on 09/16/21 s/p Patient status post laparoscopic-assisted diversion with end sigmoid colostomy and extensive debridement of sacral decubitus. Ostomy is functioning, patient is tolerating soft diet Postop care per surgeon, continue wound care, antibiotics, dietary supplements --wound cultures Klebsiella pneumonia; Gram-negative rods Enterococcus species Currently on meropenem, s/p vancomycin, ID following Continue supportive care, wound care, pain medications -- Bacteremia with gram-negative shahram and gram-positive cocci Continue empiric antibiotics per ID recommendation -- Hypoglycemia/resolved Persistent hypoglycemia IV D5W with normal saline Probably due to poor oral intake D50 W and glucagon as necessary Etiology of hypoglycemia unclear Poor p.o. intake --Hyponatremia Mild improvement Na improved from 128-132 this morning Continue normal saline closely monitor electrolytes --Anemia[dropped from 10.2-8.6 since admission] Closely monitor H&H, transfuse as needed No external evidence of bleeding, stool for occult blood Closely monitor -- Severe protein calorie malnutrition With hypoalbuminemia, nutrition supplements Nutrition consult and supportive care --Severe hyper anemia; albumin2.2 nutrition supplements, nutrition consult Supportive care -- DVT prophylaxis Subcu heparin and GI prophylaxis -- Advance care planning Could not be done because of logistics Plan of care reviewed with the patient and his nurse Subjective Date of service: 09/18/21 Interval history: Patient seen and examined. Medical records and medication list reviewed. No acute event overnight noted by the RN. Patient denies any chest pain or difficulty breathing. Patient is tolerating diet. Discussed plan of care at bedside with patient. Objective - Exam Narrative Exam: General appearance: Present: no acute distress, well-nourished - EENT Eyes: Present: PERRL, EOM intact - Neck Neck: Present: supple, normal ROM - Respiratory Respiratory effort: normal Respiratory: bilateral: diminished, negative: rales, rhonchi, wheezing - Cardiovascular Rhythm: regular Heart Sounds: Present: S1 & S2 - Extremities Extremities: no ischemia, abnormal - Abdominal General gastrointestinal: soft, non-tender, non-distended, normal bowel sounds - Integumentary Integumentary: Present: clear, warm, decreased turgor (Dressing in place in sacral area) - Psychiatric Psychiatric: appropriate mood/affect, cooperative - Neurologic Neurologic: CNII-XII intact, moves all extremities - Constitutional Vitals: Vital Signs - 12hr 09/18/21 05:36 Temperature 97.8 F Pulse Rate 78 Respiratory 14 Rate Blood Pressure 122/68 [Left] O2 Sat by Pulse 100 Oximetry - Labs CBC & Chem 7: 09/17/21 07:11 09/17/21 07:11 Labs: Abnormal lab results 09/17/21 09/17/21 09/18/21 Range/Units 16:29 21:48 12:05 POC Glucose 153 H 106 H 128 H (70-105) mg/dL HEART Score - HEART Score Troponin: Troponin T 0.013 ng/mL (0.00-0.029) 09/07/21 13:13
[2021-09-18] MEDS: D5W/0.9% NACL 1,000 ML IV SCH (16:30)
[2021-09-19] MEDS: D5W/0.9% NACL 1,000 ML IV SCH (04:56)
[2021-09-19] MEDS: MEROPENEM/NS 1 GRAM/100 ML 1 GRAM/100 ML BAG IV SCH ×3 (05:00→21:58)
[2021-09-19] MEDS: HEPARIN 5,000 UNIT/1 ML VIAL SUB-Q SCH ×3 (07:48→21:58)
[2021-09-19] MEDS: METOPROLOL TARTRATE 25 MG TAB PO SCH ×4 (07:50→22:14)
[2021-09-19] MEDS: FOLIC ACID 1 MG TAB PO SCH ×2 (07:51→10:00)
[2021-09-19] MEDS: MIDODRINE 10 MG TAB PO SCH ×2 (07:52→17:17)
[2021-09-19] MEDS: INSULIN LISPRO 100 UNIT/ML SUB-Q SCH ×4 (09:38→21:12)
--- NOTE | 2021-09-19 11:47 | Discharge Summary ---
Providers - Providers Date of Admission: 09/07/21 22:04 Date of discharge: 09/20/21 Attending physician: LYNN MONTES 09/07/21 22:04 Consult to Physician [CONS] Routine Comment: Consulting Provider: RA TITUS Physician Instructions: Reason For Exam: Decub ulcer 09/08/21 15:04 Physical Therapy Evaluation and Treat [CONS] Stat Comment: Eval and Treat Reason For Exam: Physical Therapy 09/08/21 15:05 Occupational Therapy Evaluate and Treat [CONS] Stat Comment: Eval and Treat Reason For Exam: Occupational Therapy 09/09/21 08:28 Consult to Wound/ET Nurse [CONS] Routine Reason For Exam: wound eval 09/12/21 10:39 Consult to Physician [CONS] Routine Comment: Consulting Provider: ROLANDO VASQUEZ Physician Instructions: Reason For Exam: Klebsiella wound cultures 09/15/21 09:01 Consult to Case Management [CONS] Routine Services Needed at Discharge: Other Notified:: cm Was contact made?: No Time called:: 09:24 Comment:: IV antibiotics. self consult. Additional Physician Instructions: [facility] O: [phone] F: [phone] OUTPATIENT PARENTERAL ANTIBIOTIC THERAPY (OPAT) ORDERS Diagnoses: Bacteremia, sacral wound with infection Antimicrobial administration: IV meropenem 1 g every 8 hours for 2 weeks ending 09/28/2021 - Remove PICC/midline after last dose unless otherwise instructed. Lines: Maintain IV access with weekly dressing changes and locks per protocol. Lab monitoring: - CBC with differential, CMP, CRP once a week every Monday or Monday while on IV antibiotics. - Please fax lab results to [phone] and call [phone] for critical lab results. Brit Browne MD, FACP, [facility] 09/16/21 14:15 Consult to PICC Line RN [CONS] Routine Reason For Exam: IV Abx Type Line:: Midline Primary care physician: [employer] Hospitalization Condition: Stable Hospital course: Brief history and daily Hospital course; 60-year-old male patient with history of diabetes mellitus was admitted through emergency room with hypoglycemia episode further work-up also consistent with stage IV sacral decubitus ulcer evaluated by surgeon patient underwent surgical debridement of sacral decubitus x2 with wound VAC placement today 09/13/2021 polymicrobial wound cultures positive currently on vancomycin and meropenem 09/08;I also discussed extensively with surgeon Dr. Titus Is planning surgical debridement tomorrow if patient is stable N.p.o. from midnight 09/09; patient is n.p.o. status, scheduled for surgical debridement Surgeon requested echocardiogram, echo ordered We will also add PT, INR and PTT 09/10; postop care per surgical team, patient tolerating soft diet Mild hypokalemia, replenished with KCl and follow electrolytes Surgeon is planning additional sacral wound debridement and wound VAC on Monday, 09/14/1909/11; patient comfortable, no new complaints Surgery following, planning additional wound debridement wound VAC placement on 09/13/202109/12; wound cultures positive for Klebsiella pneumonia sensitive to imipenem Antibiotics changed to imipenem, ID consulted Patient scheduled for surgical debridement and possible wound VAC placement procedure tomorrow, Patient is n.p.o. from midnight 09/13; ID adjusted antibiotics currently patient is on vancomycin and meropenem Follow culture sensitivities, follow surgeon for rest of the plan 09/14; placed on wound VAC, final wound culture pending, continue vancomycin and meropenem 09/15: Patient also had positive blood culture with gram-negative rods and gram- positive cocci. ID recommended to continue meropenem and vancomycin. Patient will need IV antibiotics and wound VAC on discharge. Continue to follow clini poornima and wait for IDs final recommendation 09/16: Patient had another debridement today. Patient need IV meropenem for 2 weeks. Also need wound VAC on discharge. 09/17: -continue with IV meropenem. Getting midline placed -GPC isolate in blood sent to reference lab for further identification, likely won't result till late next week. Repeat blood cultures are negative -Case management orders placed for OPAT: IV meropenem 1 g every 8 hours for 2 weeks ending 09/28/2021 -Discharge pending on wound VAC set up 09/18/21: midline placed, discharge pending on home wound vac delivery/set up. cont iv abx, need IV meropenem 1 g every 8 hours for 2 weeks ending 09/28/2021. cont to follow Assessment and plan: -- Sacral decubitus ulcer, stage IV- Severe sacral decubitus ulcer about 12 cm [place] VIII centimeters X depth of about 2 cm with eschar formation over half of the decubitus ulcer Evaluated by surgeon patient underwent surgical procedure 09/09/2021, another debridement with wound VAC placement on 09/13/21, last debridement on 09/16/21 s/p Patient status post laparoscopic-assisted diversion with end sigmoid colostomy and extensive debridement of sacral decubitus. Ostomy is functioning, patient is tolerating soft diet Postop care per surgeon, continue wound care, antibiotics, dietary supplements --wound cultures Klebsiella pneumonia; Gram-negative rods Enterococcus species Currently on meropenem, s/p vancomycin, ID following Continue supportive care, wound care, pain medications -- Bacteremia with gram-negative shahram and gram-positive cocci Continue empiric antibiotics per ID recommendation -- Hypoglycemia/resolved Persistent hypoglycemia IV D5W with normal saline Probably due to poor oral intake D50 W and glucagon as necessary Etiology of hypoglycemia unclear Poor p.o. intake --Hyponatremia Mild improvement Na improved from 128-132 this morning Continue normal saline closely monitor electrolytes --Anemia[dropped from 10.2-8.6 since admission] Closely monitor H&H, transfuse as needed No external evidence of bleeding, stool for occult blood Closely monitor -- Severe protein calorie malnutrition With hypoalbuminemia, nutrition supplements Nutrition consult and supportive care --Severe hyper anemia; albumin2.2 nutrition supplements, nutrition consult Supportive care -- DVT prophylaxis Subcu heparin and GI prophylaxis -- Advance care planning Could not be done because of logistics Plan of care reviewed with the patient and his nurse Disposition: 01 HOME / SELF CARE / HOMELESS Final Discharge Diagnosis (Prints w/discharge instructions): --Stage 4 infected decubitus ulcer. --Bacteremia Time spent for discharge: 34 minutes Exam - Physical Exam Narrative exam: General appearance: Present: no acute distress, well-nourished - EENT Eyes: Present: PERRL, EOM intact - Neck Neck: Present: supple, normal ROM - Respiratory Respiratory effort: normal Respiratory: bilateral: diminished, negative: rales, rhonchi, wheezing - Cardiovascular Rhythm: regular Heart Sounds: Present: S1 & S2 - Extremities Extremities: no ischemia, abnormal - Abdominal General gastrointestinal: soft, non-tender, non-distended, normal bowel sounds - Integumentary Integumentary: Present: clear, warm, decreased turgor (Dressing in place in sacral area) - Psychiatric Psychiatric: appropriate mood/affect, cooperative - Neurologic Neurologic: CNII-XII intact, moves all extremities - Constitutional Vitals: Temp Pulse Resp BP Pulse Ox 97.3 F L 90 16 97/55 98 09/18/21 21:20 09/19/21 07:52 09/18/21 21:20 09/19/21 07:52 09/19/21 07:59 Plan Activity: fall precautions Weight Bearing Status: Non-Weight Bearing Diet: diabetic Wound: per your surgeon's advice Special Instructions: record blood sugar diary, home health RN Additional Instructions: IV meropenem 1 g every 8 hours for 2 weeks ending 09/28/2021 Follow up with: PRIMARY CAREMD [Primary Care Provider] - 7 Days RA TITUS MD [Staff Physician] - 7 Days Prescriptions: Metoprolol [Lopressor TAB] 12.5 mg PO BID #60 tablet Midodrine [Proamatine] 10 mg PO 0800,1800 #90 tablet
[2021-09-20] MEDS: D5W/0.9% NACL 1,000 ML IV SCH (02:00)
[2021-09-20] MEDS: MEROPENEM/NS 1 GRAM/100 ML 1 GRAM/100 ML BAG IV SCH ×2 (06:19→15:59)
[2021-09-20] MEDS: FOLIC ACID 1 MG TAB PO SCH (09:45)
[2021-09-20] MEDS: MIDODRINE 10 MG TAB PO SCH (09:45)
[2021-09-20] MEDS: INSULIN LISPRO 100 UNIT/ML SUB-Q SCH (09:46)
[2021-09-20] MEDS: METOPROLOL TARTRATE 25 MG TAB PO SCH (09:46)
[2021-09-20] MEDS: HEPARIN 5,000 UNIT/1 ML VIAL SUB-Q SCH (09:47)
[2021-09-20 12:28] VITALS: BP 116/72
--- NOTE | 2021-09-20 15:35 | Progress Note ---
Assessment and Plan Brief history and daily Hospital course; 60-year-old male patient with history of diabetes mellitus was admitted through emergency room with hypoglycemia episode further work-up also consistent with stage IV sacral decubitus ulcer evaluated by surgeon patient underwent surgical debridement of sacral decubitus x2 with wound VAC placement today 09/13/2021 polymicrobial wound cultures positive currently on vancomycin and meropenem 09/08;I also discussed extensively with surgeon Dr. Titus Is planning surgical debridement tomorrow if patient is stable N.p.o. from midnight 09/09; patient is n.p.o. status, scheduled for surgical debridement Surgeon requested echocardiogram, echo ordered We will also add PT, INR and PTT 09/10; postop care per surgical team, patient tolerating soft diet Mild hypokalemia, replenished with KCl and follow electrolytes Surgeon is planning additional sacral wound debridement and wound VAC on Monday, 09/14/1909/11; patient comfortable, no new complaints Surgery following, planning additional wound debridement wound VAC placement on 09/13/202109/12; wound cultures positive for Klebsiella pneumonia sensitive to imipenem Antibiotics changed to imipenem, ID consulted Patient scheduled for surgical debridement and possible wound VAC placement procedure tomorrow, Patient is n.p.o. from midnight 09/13; ID adjusted antibiotics currently patient is on vancomycin and meropenem Follow culture sensitivities, follow surgeon for rest of the plan 09/14; placed on wound VAC, final wound culture pending, continue vancomycin and meropenem 09/15: Patient also had positive blood culture with gram-negative rods and gram- positive cocci. ID recommended to continue meropenem and vancomycin. Patient will need IV antibiotics and wound VAC on discharge. Continue to follow clinically and wait for IDs final recommendation 09/16: Patient had another debridement today. Patient need IV meropenem for 2 weeks. Also need wound VAC on discharge. 09/17: -continue with IV meropenem. Getting midline placed -GPC isolate in blood sent to reference lab for further identification, likely won't result till late next week. Repeat blood cultures are negative -Case management orders placed for OPAT: IV meropenem 1 g every 8 hours for 2 weeks ending 09/28/2021 -Discharge pending on wound VAC set up 09/18/21: midline placed, discharge pending on home wound vac delivery/set up. cont iv abx, need IV meropenem 1 g every 8 hours for 2 weeks ending 09/28/2021. cont to follow. 09/19/21; wound VAC needs to be delivered at home and daughter needs to bring the wound VAC at hospital so that that could be placed on patient before discharge. Continue to follow clinically, patient will benefit for outpatient wound care visit. Continue empiric antibiotic. Pending discharge from wound VAC set up. Assessment and plan: -- Sacral decubitus ulcer, stage IV- Severe sacral decubitus ulcer about 12 cm [place] VIII centimeters X depth of about 2 cm with eschar formation over half of the decubitus ulcer Evaluated by surgeon patient underwent surgical procedure 09/09/2021, another debridement with wound VAC placement on 09/13/21, last debridement on 09/16/21 s/p Patient status post laparoscopic-assisted diversion with end sigmoid colostomy and extensive debridement of sacral decubitus. Ostomy is functioning, patient is tolerating soft diet Postop care per surgeon, continue wound care, antibiotics, dietary supplements --wound cultures Klebsiella pneumonia; Gram-negative rods Enterococcus species Currently on meropenem, s/p vancomycin, ID following Continue supportive care, wound care, pain medications -- Bacteremia with gram-negative shahram and gram-positive cocci Continue empiric antibiotics per ID recommendation -- Hypoglycemia/resolved Persistent hypoglycemia IV D5W with normal saline Probably due to poor oral intake D50 W and glucagon as necessary Etiology of hypoglycemia unclear Poor p.o. intake --Hyponatremia Mild improvement Na improved from 128-132 this morning Continue normal saline closely monitor electrolytes --Anemia[dropped from 10.2-8.6 since admission] Closely monitor H&H, transfuse as needed No external evidence of bleeding, stool for occult blood Closely monitor -- Severe protein calorie malnutrition With hypoalbuminemia, nutrition supplements Nutrition consult and supportive care --Severe hyper anemia; albumin2.2 nutrition supplements, nutrition consult Supportive care -- DVT prophylaxis Subcu heparin and GI prophylaxis -- Advance care planning Could not be done because of logistics Plan of care reviewed with the patient and his nurse Subjective Date of service: 09/19/21 Interval history: Patient seen and examined. Medical records and medication list reviewed. No acute event overnight noted by the RN. Patient denies any chest pain or difficulty breathing. Patient is tolerating diet. Discussed plan of care at bedside with patient. Objective - Exam Narrative Exam: General appearance: Present: no acute distress, well-nourished - EENT Eyes: Present: PERRL, EOM intact - Neck Neck: Present: supple, normal ROM - Respiratory Respiratory effort: normal Respiratory: bilateral: diminished, negative: rales, rhonchi, wheezing - Cardiovascular Rhythm: regular Heart Sounds: Present: S1 & S2 - Extremities Extremities: no ischemia, abnormal - Abdominal General gastrointestinal: soft, non-tender, non-distended, normal bowel sounds - Integumentary Integumentary: Present: clear, warm, decreased turgor (Dressing in place in sacral area) - Psychiatric Psychiatric: appropriate mood/affect, cooperative - Neurologic Neurologic: CNII-XII intact, moves all extremities - Constitutional Vitals: Vital Signs - 12hr 09/20/21 09/20/21 09/20/21 05:49 09:44 09:55 Temperature 98.3 F 97.3 F L 97.5 F L Pulse Rate 78 Respiratory 18 18 20 Rate Blood Pressure 118/73 116/72 Blood Pressure 109/64 [Left] O2 Sat by Pulse 100 Oximetry 09/20/21 10:34 Temperature Pulse Rate Respiratory 18 Rate Blood Pressure Blood Pressure [Left] O2 Sat by Pulse 99 Oximetry - Labs CBC & Chem 7: 09/17/21 07:11 09/17/21 07:11 Labs: Abnormal lab results 09/19/21 09/20/21 Range/Units 20:26 07:57 POC Glucose 252 H 127 H (70-105) mg/dL HEART Score - HEART Score Troponin: Troponin T 0.013 ng/mL (0.00-0.029) 09/07/21 13:13
== END 2021-09-20 16:45 | disposition home health service (06) | DRG 853 ==
LOC: ED 10:21 → 3A 22:04
PROVIDERS: ADMIT Internal Medicine; ATTEND Internal Medicine
PROC: 0D1N4Z4 Bypass Sigmoid Colon to Cutaneous, Percutaneous Endoscopic Approach (ICD-10-PCS; principal; 2021-09-09)
PROC: 0KBN0ZZ Excision of Right Hip Muscle, Open Approach (ICD-10-PCS; 2021-09-09)
PROC: 0KBP0ZZ Excision of Left Hip Muscle, Open Approach (ICD-10-PCS; 2021-09-09)
PROC: 0QB10ZZ Excision of Sacrum, Open Approach (ICD-10-PCS; 2021-09-13)
PROC: 30233N1 Transfusion of Nonautologous Red Blood Cells into Peripheral Vein, Percutaneous Approach (ICD-10-PCS; 2021-09-17)
PROC: 05H933Z Insertion of Infusion Device into Right Brachial Vein, Percutaneous Approach (ICD-10-PCS; 2021-09-17)
DX: A41.50 Gram-negative sepsis, unspecified (principal); E43 Unspecified severe protein-calorie malnutrition; L89.154 Pressure ulcer of sacral region, stage 4; E87.1 Hypo-osmolality and hyponatremia; Z68.21 Body mass index [BMI] 21.0-21.9, adult; B96.1 Klebsiella pneumoniae [K. pneumoniae] as the cause of diseases classified elsewhere; E11.649 Type 2 diabetes mellitus with hypoglycemia without coma; D64.9 Anemia, unspecified; Z86.73 Personal history of transient ischemic attack (TIA), and cerebral infarction without residual deficits
CPT/HCPCS: 36415; 71045; 80048; 80053; 80202; 81001; 82140; 82962; 83036; 83735; 84484; 85007; 85014; 85018; 85025; 85610; 85730; 86850; 86900; 86901; 86920; 87040; 87075; 87076; 87086; 87116; 87186; 93306; G0378; J3490; Q9967; C8929; J0295; J1100; J1335; J1644; J1815; J1885; J1940; J1956; J2185; J2250; J2370; J2405; J2704; J3010; J3370; J7030; J7040; J7042; J7050; J7120; P9016

== ENCOUNTER 2021-09-29 08:03 | Outpatient (CLI) | payer BC ==
[2021-09-29] MEDS ORDERED: LIDOCAINE (4%) 40 MG/ML TOPICAL SOLN 50 ML BOTTLE TP ONE (09:38)
== END 2021-09-29 08:04 | disposition home or self-care (01) ==
LOC: WOUND 08:03
PROVIDERS: ATTEND Surgery
DX: L89.154 Pressure ulcer of sacral region, stage 4 (principal); L89.314 Pressure ulcer of right buttock, stage 4; L89.324 Pressure ulcer of left buttock, stage 4; E11.9 Type 2 diabetes mellitus without complications; G82.21 Paraplegia, complete; E78.5 Hyperlipidemia, unspecified; I10 Essential (primary) hypertension; Z72.0 Tobacco use; Z93.3 Colostomy status; Z86.73 Personal history of transient ischemic attack (TIA), and cerebral infarction without residual deficits; Z79.899 Other long term (current) drug therapy
CPT/HCPCS: 97606

== ENCOUNTER 2021-10-06 13:05 | Outpatient (CLI) | payer BC ==
[2021-10-06] MEDS ORDERED: LIDOCAINE (4%) 40 MG/ML TOPICAL SOLN 50 ML BOTTLE TP ONE (13:09)
== END 2021-10-06 13:06 | disposition home or self-care (01) ==
LOC: WOUND 13:05
PROVIDERS: ATTEND Surgery
DX: L89.154 Pressure ulcer of sacral region, stage 4 (principal); L89.314 Pressure ulcer of right buttock, stage 4; L89.324 Pressure ulcer of left buttock, stage 4; E11.9 Type 2 diabetes mellitus without complications; G82.21 Paraplegia, complete; E78.5 Hyperlipidemia, unspecified; I10 Essential (primary) hypertension; Z72.0 Tobacco use; Z93.3 Colostomy status; Z86.73 Personal history of transient ischemic attack (TIA), and cerebral infarction without residual deficits; Z79.899 Other long term (current) drug therapy

== ENCOUNTER 2021-10-13 13:12 | Outpatient (CLI) | payer BC ==
[2021-10-13] MEDS ORDERED: LIDOCAINE (4%) 40 MG/ML TOPICAL SOLN 50 ML BOTTLE TP ONE (14:00)
== END 2021-10-13 13:13 | disposition home or self-care (01) ==
LOC: WOUND 13:12
PROVIDERS: ATTEND Surgery
DX: L89.154 Pressure ulcer of sacral region, stage 4 (principal); L89.314 Pressure ulcer of right buttock, stage 4; L89.324 Pressure ulcer of left buttock, stage 4; E11.9 Type 2 diabetes mellitus without complications; G82.21 Paraplegia, complete; E78.5 Hyperlipidemia, unspecified; I10 Essential (primary) hypertension; Z72.0 Tobacco use; Z93.3 Colostomy status; Z86.73 Personal history of transient ischemic attack (TIA), and cerebral infarction without residual deficits; Z79.899 Other long term (current) drug therapy
CPT/HCPCS: 97606

== ENCOUNTER 2021-10-20 12:44 | Outpatient (CLI) | payer BC ==
[2021-10-20 13:39] LABS: Blood Urea Nitrogen 7 mg/dL (9-20); Calcium 8.3 mg/dL (8.4-10.2); Hemolysis Index 13
[2021-10-20 13:54] LABS: BUN/Creatinine Ratio 12
== END 2021-10-20 12:45 | disposition home or self-care (01) ==
LOC: LAB 12:44
PROVIDERS: ATTEND Surgery
DX: L89.154 Pressure ulcer of sacral region, stage 4 (principal)
CPT/HCPCS: 36415; 80048

== ENCOUNTER 2021-10-20 14:08 | Outpatient (CLI) | payer BC ==
[2021-10-20] MEDS ORDERED: SODIUM CHLORIDE 0.9% IRR 500 ML BOTTLE IR ONE (14:11)
[2021-10-20] MEDS ORDERED: LIDOCAINE (4%) 40 MG/ML TOPICAL SOLN 50 ML BOTTLE TP ONE (14:11)
== END 2021-10-20 14:09 | disposition home or self-care (01) ==
LOC: WOUND 14:08
PROVIDERS: ATTEND Surgery
DX: L89.154 Pressure ulcer of sacral region, stage 4 (principal); L89.314 Pressure ulcer of right buttock, stage 4; L89.324 Pressure ulcer of left buttock, stage 4; E11.9 Type 2 diabetes mellitus without complications; G82.21 Paraplegia, complete; E78.5 Hyperlipidemia, unspecified; I10 Essential (primary) hypertension; Z72.0 Tobacco use; Z93.3 Colostomy status; Z86.73 Personal history of transient ischemic attack (TIA), and cerebral infarction without residual deficits; Z79.899 Other long term (current) drug therapy
CPT/HCPCS: 36415; 80048; 97606

== ENCOUNTER 2021-10-27 10:02 | Outpatient (CLI) | payer BC ==
--- NOTE | 2021-10-27 15:11 | Magnetic Resonance Report ---
MRI SACRUM WITHOUT AND WITH CONTRAST INDICATION / CLINICAL INFORMATION: L89.154 B SACRAL WOUNDS. TECHNIQUE: Multiplanar, multisequence MR images were obtained. Pre and postcontrast sequences were ob tained. COMPARISON: None available. FINDINGS: SACRUM: Destruction/resorption of the distal sacrum and coccyx with bone marrow edema in the lower s acrum. There is overlying skin thinning with suspicion of exposed bone. No abscess. No fracture. SACROILIAC JOINT(S): No significant abnormality. PARASACRAL SOFT TISSUES: No significant abnormality. OTHER BONES OF PELVIS: Diffuse heterogeneous bone marrow signal with suspicious T1 signal hypointensi ty. LOWER LUMBAR SPINE: Heterogeneous bone marrow signal with likely L5 vertebral body hemangioma. SOFT TISSUE WITHIN PELVIS: Partially imaged colostomy. ADDITIONAL FINDINGS: None. IMPRESSION: 1. 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 No abscess. 2. Diffuse heterogeneous bone marrow signal with areas of abnormal low T1 signal, which could be due to marrow reconversion. However, myeloproliferative could have this appearance. Correlate clinically. Report dictated by: Eric Trujillo MD Report dictated on: 10/27/2021 12:53 PM I have reviewed the images, agree with this report, and edited this report as needed. Signer Name: Macario Carranza MD Signed: 10/27/2021 3:07 PM Workstation Name: [employer]
== END 2021-10-27 10:03 | disposition home or self-care (01) ==
LOC: MRI 10:02
PROVIDERS: ATTEND Surgery
DX: L89.154 Pressure ulcer of sacral region, stage 4 (principal)
CPT/HCPCS: 72197; A9575

== ENCOUNTER 2021-11-03 14:12 | Outpatient (CLI) | payer BC ==
[2021-11-03] MEDS ORDERED: LIDOCAINE (4%) 40 MG/ML TOPICAL SOLN 50 ML BOTTLE TP ONE (14:16)
== END 2021-11-03 14:13 | disposition home or self-care (01) ==
LOC: WOUND 14:12
PROVIDERS: ATTEND Surgery
DX: L89.154 Pressure ulcer of sacral region, stage 4 (principal); L89.314 Pressure ulcer of right buttock, stage 4; L89.324 Pressure ulcer of left buttock, stage 4; E11.9 Type 2 diabetes mellitus without complications; G82.21 Paraplegia, complete; E78.5 Hyperlipidemia, unspecified; I10 Essential (primary) hypertension; Z86.73 Personal history of transient ischemic attack (TIA), and cerebral infarction without residual deficits; Z72.0 Tobacco use
CPT/HCPCS: 97606

== ENCOUNTER 2021-11-10 12:54 | Outpatient (CLI) | payer BC ==
[2021-11-10] MEDS ORDERED: LIDOCAINE (4%) 40 MG/ML TOPICAL SOLN 50 ML BOTTLE TP ONE (13:52)
[2021-11-10] MEDS ORDERED: SODIUM HYPOCHLORITE, DAKIN'S FULL STRENGTH (0.5%) 473 ML TOPICAL SOLN TP ONE (16:00)
== END 2021-11-10 12:55 | disposition home or self-care (01) ==
LOC: WOUND 12:54
PROVIDERS: ATTEND Surgery
DX: L89.154 Pressure ulcer of sacral region, stage 4 (principal); L89.314 Pressure ulcer of right buttock, stage 4; L89.324 Pressure ulcer of left buttock, stage 4; E11.69 Type 2 diabetes mellitus with other specified complication; M46.28 Osteomyelitis of vertebra, sacral and sacrococcygeal region; G82.21 Paraplegia, complete; E78.5 Hyperlipidemia, unspecified; I10 Essential (primary) hypertension; Z72.0 Tobacco use; Z93.3 Colostomy status; Z86.73 Personal history of transient ischemic attack (TIA), and cerebral infarction without residual deficits; Z79.899 Other long term (current) drug therapy